=== PATIENT | male | born 1950 | race Caucasian/White ===

== ENCOUNTER 2022-01-26 08:19 | Observation (INO) | payer OTHER ==
[2022-01-26] MEDS ORDERED: DEXTROSE 10%-WATER 500 ML IV ONE (08:23)
--- OUTSIDE RECORDS SUMMARY | 2022-01-26 08:24 | XMS REPORT | Continuity of Care Document ---
:1950 Author Organization [facility] t Address [address] [place] [address] Care Team Providers Name Role Phone ION VOGEL Primary Care Physician Unavailable ION VOGEL Attending Clinician Unavailable Ion Vogel MD Attending Clinician Wilfredo Vallejo Attending Clinician Unavailable Physician, No Primary or Family Admitting Clinician Unavaila ble Payers Payer Name Policy Type Policy Number Effective Date Expiration Date S ource Problems Condition Condition Condition Status Onset Resolution Last Treating Co mments Source Name Details Category Date Date Treatment Clinician Date Erectile Erectile Disease Active Unive rs dysfunctio dysfunctio 308 it y of n, n, 00:00: [place] unspecifie unspecifie 00 Me dical d erectile d erectile Br anch dysfunctio dysfunctio n type n type Type 2 Type 2 Disease Active Univers diabetes diabetes 3-07 ity of mellitus mellitus 00:00: [place] without without 00 Medical complicati complicati Br anch on, on, without without long-term long-term current current use of use of insulin insulin H/O: H/O: Disease Active Univers stroke stroke 2-07 ity of 00:00: [place] [address] [facility] Elevated Elevated Disease Active Unive rs liver liver 02-20 ity of enzymes enzymes 00:00: [address] Hyperlipid Hyperlipid Disease Active U nivers emia emia 9-16 ity of 00:00: [place] 00 [facility] Essential Essential Disease Active Uni vers hypertensi hypertensi 5-19 it y of on on 00:00: [place] [facility] Hearing Hearing Disease Active [facility] impaired, impaired, 5-19 [place] bilateral [place] Allergies, Adverse Reactions, Alerts Allergy Allergy Status Severity Reaction(s) Onset Inactive Treating Comm ents Source Name Type Date Date Clinician metformi DA Active MO RASH 2020-06 [facility] n 0-15 Clear 00:00: [place] 00 [facility] metformi DA Active MO 2020-06 [facility] n 0-15 Clear 00:00: [place] 00 [facility] Iodine Propensi Active Rash 2018-06 Univers ty to 0-03 ity of adverse 00:00: [place] reaction [facility] IODINE DRUG Active Rash 2018-06 Univers INGREDI 0-03 ity of 00:00: [place] 00 Medical [place] Aspirin Propensi Active Unknown - Abdominal U nivers ty to See comments 4-15 pain ity of adverse 00:00: [place] reaction 00 [facility] ASPIRIN DRUG Active High Unknown-Cmnt Uni vers INGREDI 4-15 ity of 00:00: [place] 00 Medical [facility] Metformi Propensi Active Diarrhea 2017-0 Univ ers n ty to 6-13 ity of adverse 00:00: [place] reaction 00 [facility] METFORMI DRUG Active High Diarrhea 20170 Univer s N INGREDI 6-13 ity of 00:00: [place] 00 Medical [facility] Penicill Propensi Active Rash Univer s ins ty to 5-19 ity of adverse 00:00: [place] reaction 00 [facility] PENICILL Drug Active Rash Univers INS Class 5-19 ity of 00:00: [place] 00 [facility] Penicill Propensi Active Rash Univer s ins ty to 5-19 ity of adverse 00:00: [place] reaction [facility] Penicill DA Active U RASH [facility] ins 4-05 Clear 00:00: [place] 00 [facility] Penicill DA Active U [facility] ins 4-05 Clear 00:00: [place] 00 [facility] Social History Social Habit Start Date Stop Date Quantity Comments Source History of tobacco Cigarette Smoker [facility] Exposure to Not sure University of SARS-CoV-2 (event) [facility] Alcohol intake 2021-08-27 2021-08-27 Current drinker Unive rsity of 00:00:00 00:00:00 of alcohol [facility] (finding) [place] Tobacco use and 2015-10-24 2015-10-24 Never used Universit y of exposure 00:00:00 00:00:00 [facility] Cigarettes smoked 2015-10-24 2015-10-24 Univers ity of current (pack per 00:00:00 00:00:00 [facility] ) - Reported Branch Sex [birth year] Universit y of 00:00:00 00:00:00 [facility] Smoking Status Start Date Stop Date Source Current every day smoker 2015-10-24 00:00:00 Uni versity of [facility] Medications Ordered Filled Start Stop Current Ordering Indication Dosage Frequency Signature Comments Components Source Medication Medication Date Date Medication? Clinician (SIG) Name Name glyBURIDE 5 2021- Yes 5mg Take 1 Univ ers mg tablet 6-29 tablet by ity o f 00:00: mouth [place] ([facility]) Medical times Branch daily with meals. glyBURIDE 5 2021-0 Yes 5mg Take 1 Univ ers mg tablet 6-29 tablet by ity o f 00:00: mouth [place] ([facility]) Medical times Branch daily with meals. famotidine 2021-0 Yes [id number] 20mg Take 1 Univers (PEPCID) 20 3-23 tablet by ity of mg tablet 00:00: mouth [place] ([facility]) Medical times Branch daily. famotidine 2022-0 Yes [id number] 20mg Take 1 Univers (PEPCID) 20 3-23 tablet by ity of mg tablet 00:00: mouth [place] ([facility]) Medical times Branch daily. famotidine 2022-0 Yes [id number] 20mg Take 1 Univers (PEPCID) 20 3-23 tablet by ity of mg tablet 00:00: mouth [place] ([facility]) Medical times Branch daily. famotidine 2-0 Yes [id number] 20mg Take 1 Univers (PEPCID) 20 3-23 tablet by ity of mg tablet 00:00: mouth [place] ([facility]) Medical times Branch daily. famotidine 2022-0 Yes [id number] 20mg Take 1 Univers (PEPCID) 20 3-23 tablet by ity of mg tablet 00:00: [place] ([facility]) Medical times Branch daily. famotidine 2021-0 Yes [id number] 20mg Take 1 Univers (PEPCID) 20 3-23 tablet by ity of mg tablet 00:00: mouth (two) Medical times Branch daily. famotidine 2021-0 Yes [id number] 20mg Take 1 Univers (PEPCID) 20 3-23 tablet by ity of mg tablet 00:00: mouth () Medical times Branch daily. glyBURIDE 5 2021-0 Yes [id number] 5mg Take 1 Univers mg tablet 3-15 tablet by ity o f 00:00: mouth [place] ([facility]) Medical times Branch daily with meals. TAKE ONE TABLET BY MOUTH ONCE DAILY WITH BREAKFAST glyBURIDE 5 2021-0 Yes [id number] 5mg Take 1 Univers mg tablet 3-15 tablet by ity o f 00:00: mouth [place] ([facility]) Medical times Branch daily with meals. TAKE ONE TABLET BY MOUTH ONCE DAILY WITH BREAKFAST glyBURIDE 5 2021-0 Yes [id number] 5mg Take 1 Univers mg tablet 3-15 tablet by ity o f 00:00: mouth [place] ([facility]) Medical times Branch daily with meals. TAKE ONE TABLET BY MOUTH ONCE DAILY WITH BREAKFAST glyBURIDE 5 2021-0 Yes [id number] 5mg Take 1 Univers mg tablet 3-15 tablet by ity o f 00:00: mouth [place] ([facility]) Medical times Branch daily with meals. TAKE ONE TABLET BY MOUTH ONCE DAILY WITH BREAKFAST glyBURIDE 5 2021-0 2022- No [id number] 5mg Take 1 Univers mg tablet 3-15 -29 tablet by ity of 00:00: 00:00 mouth [place] : ([facility]) Medical times Branch daily with meals. TAKE ONE TABLET BY MOUTH ONCE DAILY WITH BREAKFAST glyBURIDE 5 2021-0 2022- No [id number] 5mg Take 1 Univers mg tablet 3-15 06-29 tablet by ity of 00:00: 00:00 mouth 2 [place] : ([facility]) Medical times Branch daily with meals. TAKE ONE TABLET BY MOUTH ONCE DAILY WITH BREAKFAST glyBURIDE 5 2021-2021- No [id number] 5mg Take 1 Univers mg tablet 08-19- tablet by ity of 00:00: 00:00 mouth 2 [place] 00 :00 (two) Medical times Branch daily with meals. TAKE ONE TABLET BY MOUTH ONCE DAILY WITH BREAKFAST famotidine 2021- No 20mg Take 1 Univ ers (PEPCID) 20 3-15 -23 tablet by it y of mg tablet 00:00: 00:00 [place] (two) Medical times Branch daily. famotidine 2021-2021- No 20mg Take 1 Univ ers (PEPCID) 20 3-15 -23 tablet by it y of mg tablet 00:00: 00:00 [place] (two) Medical times Branch daily. gabapentin 2021-0 Yes [id number] 300mg Take 1 Univers 300 mg 3-11 capsule by ity of capsule 00:00: mouth 3 (three) Medical times Branch daily. amLODIPine 2021-0 Yes [id number] 10mg Take 1 U nivers 10 mg 3-11 tablet by ity of tablet 00:00: mouth [place] 00 daily. Medical Branch baclofen 10 2021-0 Yes [id number] 10mg Take 1 Univers mg tablet 3-11 tablet by ity o f 00:00: mouth at [place] 00 bedtime. Medical Branch clopidogreL 2021-0 Yes [id number] 75mg Take 1 Univers 75 mg 3-11 tablet by ity of tablet 00:00: mouth 00 daily. Medical Branch atorvastati 2021-0 Yes [id number] 20mg Take 1 Univers n 20 mg 3-11 tablet by ity of tablet 00:00: mouth at [place] 00 bedtime. Medical Branch lisinopriL 2021-0 Yes [id number] 20mg Take 1 U nivers 20 mg 3-11 tablet by ity of tablet 00:00: mouth 2 (two) Medical times Branch daily. montelukast 2021-0 Yes [id number] 10mg Take 1 Univers 10 mg 3-11 tablet by ity of tablet 00:00: mouth [place] 00 daily. Medical Branch gabapentin 2021-0 Yes [id number] 300mg Take 1 Univers 300 mg 3-11 capsule by ity of capsule 00:00: mouth 3 (three) Medical times Branch daily. amLODIPine 2021-0 Yes [id number] 10mg Take 1 U nivers 10 mg 3-11 tablet by ity of tablet 00:00: mouth [place] 00 daily. Medical Branch baclofen 10 2021-0 Yes [id number] 10mg Take 1 Univers mg tablet 3-11 tablet by ity o f 00:00: mouth at 00 bedtime. Medical Branch clopidogreL 2021-0 Yes [id number] 75mg Take 1 Univers 75 mg 3-11 tablet by ity of tablet 00:00: mouth [place] 00 daily. Medical Branch atorvastati 2021-0 Yes [id number] 20mg Take 1 Univers n 20 mg 3-11 tablet by ity of tablet 00:00: mouth at 00 bedtime. Medical Branch lisinopriL 2021-0 Yes [id number] 20mg Take 1 U nivers 20 mg 3-11 tablet by ity of tablet 00:00: mouth 2 (two) Medical times Branch daily. montelukast 2021-0 Yes [id number] 10mg Take 1 Univers 10 mg 3-11 tablet by ity of tablet 00:00: mouth 00 daily. Medical Branch gabapentin 2021-0 Yes [id number] 300mg Take 1 Univers 300 mg 3-11 capsule by ity of capsule 00:00: mouth 3 (three) Medical times Branch daily. amLODIPine 2021-0 Yes [id number] 10mg Take 1 U nivers 10 mg 3-11 tablet by ity of tablet 00:00: mouth 00 daily. Medical Branch baclofen 10 2021-0 Yes [id number] 10mg Take 1 Univers mg tablet 3-11 tablet by ity o f 00:00: mouth at 00 bedtime. Medical Branch clopidogreL 2021-0 Yes [id number] 75mg Take 1 Univers 75 mg 3-11 tablet by ity of tablet 00:00: mouth [place] 00 daily. Medical Branch atorvastati 2021-0 Yes [id number] 20mg Take 1 Univers n 20 mg 3-11 tablet by ity of tablet 00:00: mouth at 00 bedtime. Medical Branch lisinopriL 2021-0 Yes [id number] 20mg Take 1 U nivers 20 mg 3-11 tablet by ity of tablet 00:00: mouth 2 [place] 00 (two) Medical times Branch daily. montelukast 2021-0 Yes [id number] 10mg Take 1 Univers 10 mg 3-11 tablet by ity of tablet 00:00: mouth [place] 00 daily. Medical Branch gabapentin 2021-0 Yes [id number] 300mg Take 1 Univers 300 mg 3-11 capsule by ity of capsule 00:00: mouth 3 00 (three) Medical times Branch daily. amLODIPine 2021-0 Yes [id number] 10mg Take 1 U nivers 10 mg 3-11 tablet by ity of tablet 00:00: mouth [place] 00 daily. Medical Branch baclofen 10 0 Yes [id number] 10mg Take 1 Univers mg tablet 3-11 tablet by ity o f 00:00: mouth at 00 bedtime. Medical Branch clopidogreL 2021-0 Yes [id number] 75mg Take 1 Univers 75 mg 3-11 tablet by ity of tablet 00:00: mouth [place] 00 daily. Medical Branch atorvastati 0 Yes [id number] 20mg Take 1 Univers n 20 mg 3-11 tablet by ity of tablet 00:00: mouth at [place] 00 bedtime. Medical Branch lisinopriL 0 Yes [id number] 20mg Take 1 U nivers 20 mg 3-11 tablet by ity of tablet 00:00: mouth 2 (two) Medical times Branch daily. montelukast 2021-0 Yes [id number] 10mg Take 1 Univers 10 mg 3-11 tablet by ity of tablet 00:00: mouth [place] 00 daily. Medical Branch gabapentin 2021-0 Yes [id number] 300mg Take 1 Univers 300 mg 3-11 capsule by ity of capsule 00:00: mouth 3 (three) Medical times Branch daily. amLODIPine 2021-0 Yes [id number] 10mg Take 1 U nivers 10 mg 3-11 tablet by ity of tablet 00:00: mouth [place] 00 daily. Medical Branch baclofen 10 2021-0 Yes [id number] 10mg Take 1 Univers mg tablet 3-11 tablet by ity o f 00:00: mouth at [place] 00 bedtime. Medical Branch clopidogreL 2021-0 Yes [id number] 75mg Take 1 Univers 75 mg 3-11 tablet by ity of tablet 00:00: mouth [place] 00 daily. Medical Branch atorvastati 2021-0 Yes [id number] 20mg Take 1 Univers n 20 mg 3-11 tablet by ity of tablet 00:00: mouth at [place] 00 bedtime. Medical Branch lisinopriL 2021-0 Yes [id number] 20mg Take 1 U nivers 20 mg 3-11 tablet by ity of tablet 00:00: mouth 2 00 (two) Medical times Branch daily. montelukast 2021-0 Yes [id number] 10mg Take 1 Univers 10 mg 3-11 tablet by ity of tablet 00:00: mouth [place] 00 daily. Medical Branch gabapentin 2021-0 Yes [id number] 300mg Take 1 Univers 300 mg 3-11 capsule by ity of capsule 00:00: mouth 3 00 (three) Medical times Branch daily. amLODIPine 2021-0 Yes [id number] 10mg Take 1 U nivers 10 mg 3-11 tablet by ity of tablet 00:00: mouth [place] 00 daily. Medical Branch baclofen 10 0 Yes [id number] 10mg Take 1 Univers mg tablet 3-11 tablet by ity o f 00:00: mouth at [place] 00 bedtime. Medical Branch clopidogreL 2021-0 Yes [id number] 75mg Take 1 Univers 75 mg 3-11 tablet by ity of tablet 00:00: mouth [place] 00 daily. Medical Branch atorvastati 0 Yes [id number] 20mg Take 1 Univers n 20 mg 3-11 tablet by ity of tablet 00:00: mouth at [place] 00 bedtime. Medical Branch lisinopriL 2021-0 Yes [id number] 20mg Take 1 U nivers 20 mg 3-11 tablet by ity of tablet 00:00: mouth 2 00 (two) Medical times Branch daily. montelukast 2021-0 Yes [id number] 10mg Take 1 Univers 10 mg 3-11 tablet by ity of tablet 00:00: mouth [place] 00 daily. Medical Branch gabapentin 2021-0 Yes [id number] 300mg Take 1 Univers 300 mg 3-11 capsule by ity of capsule 00:00: mouth 3 [place] 00 (three) Medical times Branch daily. amLODIPine 2021-0 Yes [id number] 10mg Take 1 U nivers 10 mg 3-11 tablet by ity of tablet 00:00: mouth [place] 00 daily. Medical Branch baclofen 10 2022-0 Yes [id number] 10mg Take 1 Univers mg tablet 3-11 tablet by ity o f 00:00: mouth at [place] bedtime. Medical Branch clopidogreL 0 Yes [id number] 75mg Take 1 Univers 75 mg 3-11 tablet by ity of tablet 00:00: mouth [place] 00 daily. Medical Branch atorvastati 0 Yes [id number] 20mg Take 1 Univers n 20 mg 3-11 tablet by ity of tablet 00:00: mouth at [place] 00 bedtime. Medical Branch lisinopriL 0 Yes [id number] 20mg Take 1 U nivers 20 mg 3-11 tablet by ity of tablet 00:00: mouth 2 00 (two) Medical times Branch daily. montelukast Yes [id number] 10mg Take 1 Univers 10 mg 3-11 tablet by ity of tablet 00:00: mouth 00 daily. Medical Branch triamcinolo 2020-06 Yes Apply to Un sarah ne 0.5 % 0-26 area(s) 2 ity of cream 00:00: (two) [place] 00 times Medical daily. Branch triamcinolo 2020-06 Yes Apply to Un sarah ne 0.5 % 0-26 area(s) 2 ity of cream 00:00: (two) 00 times Medical daily. Branch triamcinolo 2020-06 Yes Apply to Un sarah ne 0.5 % 0-26 area(s) 2 ity of cream 00:00: (two) times Medical daily. Branch triamcinolo 2020-06 Yes Apply to Un sarah ne 0.5 % 0-26 area(s) 2 ity of cream 00:00: (two) [place] 00 times Medical daily. Branch triamcinolo 2020-06 Yes Apply to Un sarah ne 0.5 % 0-26 area(s) 2 ity of cream 00:00: (two) [place] 00 times Medical daily. Branch triamcinolo 2020-06 Yes Apply to Un sarah ne 0.5 % 0-26 area(s) 2 ity of cream 00:00: (two) [place] 00 times Medical daily. Branch triamcinolo 2020-06 Yes Apply to Un sarah ne 0.5 % 0-26 area(s) 2 ity of cream 00:00: (two) [place] 00 times Medical daily. [place] sildenafil 2019-0 Yes [id number] 20mg Take 1 Univers 20 mg 4-15 tablet by ity of tablet 00:00: mouth [place] 00 daily. [facility] sildenafil 2019-0 Yes [id number] 20mg Take 1 Univers 20 mg 4-15 tablet by ity of tablet 00:00: mouth [place] 00 daily. [facility] sildenafil 2019-0 Yes [id number] 20mg Take 1 Univers 20 mg 4-15 tablet by ity of tablet 00:00: mouth [place] 00 daily. [facility] sildenafil 2019-0 Yes [id number] 20mg Take 1 Univers 20 mg 4-15 tablet by ity of tablet 00:00: mouth [place] 00 daily. [facility] sildenafil 2019-0 Yes [id number] 20mg Take 1 Univers 20 mg 4-15 tablet by ity of tablet 00:00: mouth [place] 00 daily. [facility] sildenafil 2019-0 Yes [id number] 20mg Take 1 Univers 20 mg 4-15 tablet by ity of tablet 00:00: mouth [place] 00 daily. [facility] sildenafil 2019-0 Yes [id number] 20mg Take 1 Univers 20 mg 4-15 tablet by ity of tablet 00:00: mouth [place] 00 daily. [facility] fluticasone Yes [id number] 2{spray Use 2 Univers (FLONASE) 6-04 } Sprays in ity o f 50 00:00: each [place] mcg/actuati 00 nostril Medic al on nasal daily. [place] spray fluticasone 2017- Yes [id number] 2{spray Use 2 Univers (FLONASE) 6-04 } Sprays in ity o f 50 00:00: each [place] mcg/actuati 00 nostril Medic al on nasal daily. Branch spray fluticasone 2017- Yes [id number] 2{spray Use 2 Univers (FLONASE) 6-04 } Sprays in ity o f 50 00:00: each [place] mcg/actuati 00 nostril Medic al on nasal daily. Branch spray fluticasone 2017- Yes [id number] 2{spray Use 2 Univers (FLONASE) 6-04 } Sprays in ity o f 50 00:00: each [place] mcg/actuati 00 nostril Medic al on nasal daily. Branch spray fluticasone Yes [id number] 2{spray Use 2 Univers (FLONASE) 6-04 } Sprays in ity o f 50 00:00: each [place] mcg/actuati 00 nostril Medic al on nasal daily. Branch spray fluticasone Yes [id number] 2{spray Use 2 Univers (FLONASE) 6-04 } Sprays in ity o f 50 00:00: each [place] mcg/actuati 00 nostril Medic al on nasal daily. Branch spray fluticasone Yes [id number] 2{spray Use 2 Univers (FLONASE) 6-04 } Sprays in ity o f 50 00:00: each [place] mcg/actuati 00 nostril Medic al on nasal daily. Branch spray blood sugar Yes E11.9, use Univers diagnostic 03-04 to check ity o f (BLOOD 00:00: blood [place] GLUCOSE 00 glucose Medical TEST) strip once Branch before breakfast Lancets Yes E11.9, use Univ ers Misc 03-04 to check ity of 00:00: blood [place] 00 glucose Medical once Branch before breakfast blood sugar Yes E11.9, use Univers diagnostic 03-04 to check ity o f (BLOOD 00:00: blood [place] GLUCOSE 00 glucose Medical TEST) strip once Branch before breakfast Lancets Yes E11.9, use Univ ers Misc 03-04 to check ity of 00:00: blood [place] 00 glucose Medical once Branch before breakfast blood sugar Yes E11.9, use Univers diagnostic 28 to check ity o f (BLOOD 00:00: blood [place] GLUCOSE 00 glucose Medical TEST) strip once Branch before breakfast Lancets Yes E11.9, use Univ ers Misc 928 to check ity of 00:00: blood [place] 00 glucose Medical once Branch before breakfast blood sugar Yes E11.9, use Univers diagnostic 28 to check ity o f (BLOOD 00:00: blood [place] GLUCOSE 00 glucose Medical TEST) strip once Branch before breakfast Lancets Yes E11.9, use Univ ers Misc 928 to check ity of 00:00: blood [place] 00 glucose Medical once Branch before breakfast blood sugar Yes E11.9, use Univers diagnostic 928 to check ity o f (BLOOD 00:00: blood [place] GLUCOSE 00 glucose Medical TEST) strip once Branch before breakfast Lancets 2017 Yes E11.9, use Univ ers Misc 9-28 to check ity of 00:00: blood [place] 00 glucose Medical once Branch before breakfast blood sugar Yes E11.9, use Univers diagnostic 28 to check ity o f (BLOOD 00:00: blood [place] GLUCOSE 00 glucose Medical TEST) strip once Branch before breakfast Lancets 2017 Yes E11.9, use Univ ers Misc 9-28 to check ity of 00:00: blood [place] 00 glucose Medical once Branch before breakfast blood sugar Yes E11.9, use Univers diagnostic 28 to check ity o f (BLOOD 00:00: blood [place] GLUCOSE 00 glucose Medical TEST) strip once Branch before breakfast Lancets 2017 Yes E11.9, use Univ ers Misc 9-28 to check ity of 00:00: blood [place] 00 glucose Medical once Branch before breakfast Blood-Gluco Yes E11.9, use Univers se Meter 9-22 to check ity of Kit 00:00: blood [place] 00 glucose Medical once Branch daily, provide meter covered by insurance Blood-Gluco 2016-0 Yes E11.9, use Univers se Meter 9-22 to check ity of Kit 00:00: blood [place] 00 glucose Medical once Branch daily, provide meter covered by insurance Blood-Gluco 2016-0 Yes E11.9, use Univers se Meter 9-22 to check ity of Kit 00:00: blood [place] 00 glucose Medical once Branch daily, provide meter covered by insurance Blood-Gluco 2017-0 Yes E11.9, use Univers se Meter 9-22 to check ity of Kit 00:00: blood [place] 00 glucose Medical once Branch daily, provide meter covered by insurance Blood-Gluco 2017-0 Yes E11.9, use Univers se Meter 9-22 to check ity of Kit 00:00: blood [place] 00 glucose Medical once Branch daily, provide meter covered by insurance Blood-Gluco 2017-0 Yes E11.9, use Univers se Meter 9-22 to check ity of Kit 00:00: blood [place] 00 glucose Medical once Branch daily, provide meter covered by insurance Blood-Gluco 2017-0 Yes E11.9, use Univers se Meter 9-22 to check ity of Kit 00:00: blood [place] 00 glucose Medical once Branch daily, provide meter covered by insurance Immunizations Ordered Filled Immunization Date Status Comments [facility] e Immunization Name Name SARS-COV-2 COVID-19 2020-09-03 Completed Unive rsity of MODERNA VACCINE 00:00:00 [facility] SARS-COV-2 COVID-19 2020-09-03 Completed Unive rsity of MODERNA VACCINE 00:00:00 [facility] Branch SARS-COV-2 COVID-19 2020-09-03 Completed Unive rsity of MODERNA VACCINE 00:00:00 [facility] SARS-COV-2 COVID-19 2020-09-03 Completed Unive rsity of MODERNA VACCINE 00:00:00 [facility] Branch SARS-COV-2 COVID-19 2020-09-03 Completed Unive rsity of MODERNA VACCINE 00:00:00 [facility] Branch SARS-COV-2 COVID-19 2020-09-03 Completed Unive rsity of MODERNA VACCINE 00:00:00 [facility] Branch SARS-COV-2 COVID-19 2020-09-03 Completed Unive rsity of MODERNA VACCINE 00:00:00 [facility] Branch SARS-COV-2 COVID-19 2020-08-09 Completed Unive rsity of MODERNA VACCINE 00:00:00 [facility] Branch SARS-COV-2 COVID-19 2020-08-09 Completed Unive rsity of MODERNA VACCINE 00:00:00 [facility] Branch SARS-COV-2 COVID-19 2020-08-09 Completed Unive rsity of MODERNA VACCINE 00:00:00 [facility] Branch SARS-COV-2 COVID-19 2020-08-09 Completed Unive rsity of MODERNA VACCINE 00:00:00 [facility] Branch SARS-COV-2 COVID-19 2020-08-09 Completed Unive rsity of MODERNA VACCINE 00:00:00 [facility] SARS-COV-2 COVID-19 2020-08-09 Completed Unive rsity of MODERNA VACCINE 00:00:00 [facility] SARS-COV-2 COVID-19 2020-08-09 Completed Unive rsity of MODERNA VACCINE 00:00:00 [facility] TDAP 2016-09-10 Completed [facility] 00:[facility] TDAP 2016-09-10 Completed University [facility] 00[facility]00:00 [facility] TDAP 2016-09-10 Completed University [facility] 00:00:00 [facility] TDAP 2016-09-10 Completed University of 00:00:00 [facility] TDAP 2016-09-10 Completed University [facility] 00:00:00 [facility] TDAP 2016-09-10 Completed University [facility] 00:00:00 [facility] TDAP 2016-09-10 Completed [facility] 00:00:00 [facility] Vital Signs Vital Name Observation Time Observation Value Comments Source Systolic blood 2021-08-27 13:47:00 133 mm[Hg] Univer sity of pressure [facility] Diastolic blood 2021-08-27 13:47:00 81 mm[Hg] Unive rsity of [facility] Heart rate 2021-08-27 13:47:00 68 /min [facility] Body temperature 2021-08-27 13:47:00 36.78 [facility] Res[facility] rate 2021-08-27 13:47:00 16 /min [facility] Body height 2021-08-27 13:47:00 185.4 cm [facility] Body weight 2021-08-27 13:47:00 85.095 kg [facility] BMI 2021-08-27 13:47:00 24.75 kg/m2 [facility] Oxygen saturation in 2021-08-27 13:47:00 100 /min [facility] blood by [facility] Pulse oximetry Branch Procedures This patient has no known procedures. Encounters Start End Encounter Admission Attending Care Care Encounter Source Date/Time Date/Time Type Type Clinicians Facility Department ID 2021-03-21 Inpatient [facility] [id number] [facility] 02:58:00 [id number] [facility] 2022-02-27 2022-02-27 Outpatient ION ROCHA [facility] [id number] [facility] 08:45:00 08:45:00 [id number] ity [facility] 2021-12-02 2021-12-02 Ion Carter 1.2.840.114 [id number] Univers 00:00:00 00:00:00 Y PEDIATRIC 350.1.13.10 [place] [id number] [address] 2021-12-01 2021-12-01 Ion Vincent 1.2.840.114 [id number] Univers 00:00:00 00:00:00 Y PEDIATRIC 350.1.13.10 [place] [id number] [address] 2021-12-01 2021-12-01 Ion Vincent 1.2.840.114 [id number] Univers 00:00:00 00:00:00 Y PEDIATRIC 350.1.13.10 [id number] [address] 2021-11-04 2021-11-04 Outpatient ION ROCHA [facility] [id number] Univers 11:00:00 11:00:00 [facility] 2021-11-04 2021-11-04 Outpatient ION ROCHA [facility] [id number] Univers 11:00:00 11:00:00 [id number] [facility] 2021-10-01 2021-10-01 Ion Vincent 1.2.840.114 [id number] Univers 00:00:00 00:00:00 Y PEDIATRIC 350.1.13.10 [id number] [address] 2021-09-18 2021-09-18 Telephone Ion Vogel 1.2.840.114 [id number] Univers 00:00:00 00:00:00 Y PEDIATRIC 350.1.13.10 [id number] [address] [address] [facility] 2021-08-27 2021-08-27 Office Ion Vogel 1.2.840.114 [id number] Univers 08:45:00 09:07:33 Visit Y PEDIATRIC 350.1.13.10 [id number] [place] [address] [address] [facility] 2021-08-27 2021-08-27 Outpatient R ION VOGEL [facility] [id number] [facility] 08:45:00 09:07:33 ity of [facility] 2021-03-21 2021-03-21 Emergency EM RANDA Vallejo AERS [id number] [facility] 02:58:00 07:32:[address] [place] [address] Results Test Description Test Time Test Comments Results Result Comments Source UA DIPSTICK POC 2021-03-21 13:07:00 Test Item Value Reference Range Interpretation Comme nts UA GLUCOSE DIPSTIC POC (test code NEGATIVE NEGATIVE = GLUUP) UA BILIRUBIN DIPSTICK (test code NEGATIVE NEGATIVE = BILU) UA KETONE DIPSTICK POC (test code 1+ NEGATIVE A = KETUP) UA SPECIFIC GRAVITY (test code = 1.010 1.005-1.030 N SGU) UA BLOOD DIPSTIC POC (test code = NEGATIVE NEGATIVE Performed by certified BLUP) chemical plant operator at [facility] UA PH DIPSTIC POC (test code = 5 5.0-7.0 N PHUP) UA PROTEIN DIPSTICK POC (test NEGATIVE NEGATIVE code = DPROUP) UA UROBILINIOGEN QUAL (test code NORMAL 0.2-1.0 = UROQL) UA NITRITE DIPSTICK POC (test NEGATIVE Negative code = NITUP) UA LEUKOCYTE ESTERASE W REFLEX Negative NEGATIVE (test code = LEUUR) - CT ABD PELVIS W/O [id number] 00:00:00 [facility]IMBERLYN MAXWELLJohana Villar : 1950 Sex: M Name:KAY MAXWELL FSED : 1950 Age/S: 71 / M [address] [facility] Unit #: [id number] Loc:David Singh [address] Phys: Wilfredo Vallejo MD Acct: [id number] Dis Date: Status: REG ER PHONE #: Exam Date: 03/21/2021 0623 FAX #: Reason: low back pain EXAMS: CPT CODE: [id number] CT ABD PELVIS W/O [id number] PROCEDURE INFORMATION: Exam: CT Abdomen And Pelvis Without Contrast Exam date and time: 03/21/2021 6:08 AM Age: 71 years old Clinical indication: Abdominal pain; Localized; Lower; Additional info: Low back pain TECHNIQUE: Imaging protocol: Computed tomography of the abdomen and pelvis without contrast. Radiation optimization: All CT scans at this facility use at least one of these dose optimization techniques: automated exposure control; mA and/or kV adjustment per patient size (includes targeted exams where dose is matched to clinical indication); or iterative reconstruction. COMPARISON: No relevant prior studies available. FINDINGS: Lungs: Mild bilateral basilar subsegmental atelectasis and scarring. Heart: Heart size at the upper limits of normal. Liver: Normal size and attenuation without focal lesion. Gallbladder and bile ducts: Contracted gallbladder containing calcified gallstones without inflammation or biliary dilatation. Pancreas: Normal. No ductal dilation. Spleen: Normal size and attenuation without focal lesion. Adrenal glands: Normal. No mass. Kidneys and ureters: Normal size nonenhanced kidneys associated with mild nonspecific perinephric stranding. No urolithiasis, hydronephrosis, or suspicious lesion. Stomach and bowel: Underdistended appropriately thickwalled stomach. Nonobstructive bowel gas pattern. Sptx-pc-sokzwuix diverticulosis greatest in the thick-walled sigmoid colon consistent with chronic changes of diverticulosis. Appendix: No evidence of appendicitis. Intraperitoneal space: Normal without free air or significant fluid collection. Vasculature: Normal c aliber mildly to moderately atherosclerotic nonenhanced abdominal aorta. Lymph nodes: Numerous smallnonspecific central mesenteric and retroperitoneal lymph nodes without lymph node enlargement or mass. Urinary bladder: Mildly dilated urinary bladder suggesting urinary retention or bladder outlet obstruction. Reproductive: Mildly enlarged prostate and seminal vesicles should be correlated clinically. Bones/joints: Mild to moderate lumbar spondylosis and facet joint PAGE 1 Signed Report (CONTINUED) Name: KAY MAXWELL FSED : 1950 Age/S: 71 / M [address] [facility] Unit #: [id number] Loc: David Singh [address] Phys: Wilfredo Vallejo MD Acct: [id number] Dis Date: Status: REG ER PHONE #: Exam Date: 03/21/2021 0654 FAX #: Reason: low back pain EXAMS: CPT CODE: [id number] CT ABD PELVIS W/O CONT 15572 (Continued) arthrosis greatest in the mid and lower lumbar spine. No acute fracture or dislocation. Soft tissues: No significant abnormality. IMPRESSION: 1. Kxjr-wt-msyhlyrq diverticulosis greatest in the thick-walled sigmoid colon consistent with chronic changes of diverticulosis. 2. Mildly enlarged prostate and seminal vesicles should be correlated clinically. 3. Mildly dilated urinary bladder suggesting urinary retention or bladder outlet obstruction. 4. Contracted gallbladder containing calcified gallstones without inflammation or biliary dilatation. 5. Heart size at the upper limits of normal. 6. Numerous small nonspecific central mesenteric and retroperitoneal lymph nodes without lymph node enlargement or mass. [id number] Reported and signed by: Hipolito Patten M.D. CC: Wilfredo Vallejo MD Technologist:Romario Bhakta, RT(R)(CT) CTDI: DLP: Trnscb Date/Time: 03/21/2021 (657) [email or web address] Orig Print D/T: S: 03/21/2021 (0659) PAGE 2 Signed Report
--- NOTE | 2022-01-26 08:37 | RAD REPORT ---
EXAM DESCRIPTION: CT - Ct Stroke Brain Wo Cont - 01/26/2022 8:30 am CLINICAL HISTORY: right sided weakness COMPARISON: No comparisons TECHNIQUE: All CT scans are performed using dose optimization technique as appropriate and may inclu de automated exposure control or mA/KV adjustment according to patient size. FINDINGS: No intracranial hemorrhage, hydrocephalus or extra-axial fluid collection.No areas of brai n edema or evidence of midline shift. Presumably chronically opacified left maxillary sinus which has volume loss and inspissated secretion s. The calvarium is intact. IMPRESSION: No acute intracranial abnormality. Discussed with Dr. Hitchcock by Dr. Roberts at 0833 on 01/26/22
[2022-01-26 08:42] LABS: Absolute Lymphocytes (CBC) 0.5 K/uL (0.7-4.9); Hematocrit 45.3 % (39.6-49.0); Lymphocytes % 10.2 % (15.3-44.8); MCV 93.3 fL (80-100); RBC Red Blood Cell Count 4.85 M/uL (4.33-5.43)
[2022-01-26 08:45] LABS: Protime INR 1.05
[2022-01-26 09:03] LABS: Potassium 3.2 mmol/L (3.5-5.1); Troponin High Sensitivity 14.4 pg/mL (<58.9)
--- NOTE | 2022-01-26 09:05 | RAD REPORT ---
EXAM DESCRIPTION: RAD - Chest Single View - 01/26/2022 8:54 am CLINICAL HISTORY: right sided weakness COMPARISON: No comparisons FINDINGS: Lines: None. Lungs: No evidence of edema or pneumonia. Calcified nodule in the left mid lung. Pleural: No significant pleural effusions or pneumothorax. Cardiac: The heart size is within normal limits. Bones: No acute fractures. Other: IMPRESSION: No acute cardiopulmonary disease.
[2022-01-26 09:21] LABS: SARS-CoV-2 Antigen Rapid Res Positive (Negative)
--- NOTE | 2022-01-26 09:30 | ER ---
Nurse's Notes [facility] [employer] [place] Name: Ford Cardenas Age: 71 yrs Sex: Male : 1950 Arrival Date: 01/26/2022 Time: 08:20 Bed 4 Private MD: Diagnosis: Transient cerebral ischemic attack, unspecified;Hypoglycemia, unspecified;SARS-associated coronavirus as the cause of diseases classified elsewhere Presentation: 01/26 08:20 Chief complaint: Patient states: Woke up on the floor this morning at 0300 with R sided ss weakness. Pt reports he is regaining some movement to his R leg. Upon EMS arrival, initial BGL was 41, after administering 1 tube of oral glucose, repeat bgl went down to 30. Upon arrival to ED, bgl is 31. Pt is awake and alert at this time. Coronavirus screen: Client denies travel out of the [place] in the last 14 days. Ebola Screen: Patient denies exposure to infectious person. Patient denies travel to an Ebola-affected area in the 21 days before illness onset. Initial Sepsis Screen: Does the patient meet any 2 criteria? No. Patient's initial sepsis screen is negative. Does the patient have a suspected source of infection? No. Patient's initial sepsis screen is negative. Risk Assessment: Do you want to hurt yourself or someone else? Patient reports no desire to harm self or others. Onset of symptoms is unknown. 08:20 Method Of Arrival: EMS: [facility] 08:20 Acuity: KAYLA 2 ss Triage Assessment: 08:15 General: Appears in no apparent distress. slender, Behavior is calm, cooperative. jh6 08:15 Pain: Denies pain. Neuro: Level of Consciousness is awake, alert, obeys commands, jh6 Oriented to person, situation, Criminal Investigator Customs are weak on right. Historical: - Allergies: 08:24 PENICILLINS; ss 08:24 Iodine; ss - Home Meds: 09:59 None [Active]; jg9 - PMHx: 09:59 None; jg9 - Immunization history:: Adult Immunizations up to date. - Social history:: Smoking status: Patient denies any tobacco usage or history of. - Family history:: not pertinent. - Hospitalizations: : No recent hospitalization is reported. Screenin:15 Abuse screen: Denies threats or abuse. Denies injuries from another. Nutritional 6 screening: No deficits noted. Tuberculosis screening: No symptoms or risk factors identified. Fall Risk Fall in past 12 months (25 points). Secondary diagnosis (15 points) TIA, IV access (20 points). Assessment: 08:15 Derm: Skin has skin tears on r elbow area. jg9 08:26 Reassessment: Patient is having increased movement on right side from initial j9 assessment. Pain: Denies pain. 09:00 Neuro: Justin Agitation-Sedation Scale (RASS): 0 - Alert and Calm Level of jh Consciousness is awake, alert, obeys commands, confused, Oriented to person, place, situation, Criminal Investigator Customs are weak on right Moves all extremities. Weakness in right leg(s) Speech is normal, Facial symmetry appears normal, Pupils are PERRLA, Intact Babinski is positive. Vital Signs: 08:20 BP 184 / 71; Pulse 75; Resp 16; Temp 98.1(TE); Weight 79.83 kg; Pain 0/10; ss 08:59 BP 152 / 76; Pulse 78; Resp 18; Pulse Ox 98% ; Pain 0/10; jh6 09:30 BP 190 / 93 RA; Pulse 73; Resp 17 S; Pulse Ox 98% on R/A; jg9 10:00 BP 180 / 78; Pulse 83; Resp 16 S; Pulse Ox 98% on R/A; Pain 0/10; jg9 11:00 BP 168 / 78; Pulse 75; Resp 16 S; Pulse Ox 98% on R/A; jg9 12:00 BP 129 / 63; Pulse 62; Resp 17 S; Pulse Ox 98% on R/A; jg9 13:00 BP 129 / 71; Pulse 62; Resp 16 S; Pulse Ox 97% on R/A; jg9 14:00 BP 125 / 74; Pulse 61; Resp 15 S; Pulse Ox 100% on R/A; jg9 15:00 BP 143 / 65; Pulse 88; Resp 18 S; Pulse Ox 99% on R/A; jg9 16:00 BP 141 / 75; Pulse 63; Resp 20 S; Pulse Ox 99% on R/A; jg9 17:00 BP 134 / 67; Pulse 58; Resp 13 S; Pulse Ox 97% on R/A; jg9 Vitals: 08:59 Cardiac Rhythm Assessment Regular. 6 NIH Stroke Scale Scores: 08:34 NIHSS Score: 5 j 08:34 NIHSS Score: 6 [facility] 08:52 NIHSS Score: 6 rn 09:01 NIHSS Score: 4 [facility] ED Course: 08:00 Inserted saline lock: 20 gauge in left antecubital area, using aseptic technique. Blood 6 collected. 08:15 Placed in gown. Bed in low position. Call light in reach. Side rails up X2. [facility] 08:20 Patient arrived in ED. rn 08:20 Deuce Hitchcock MD is Attending Physician. rn 08:24 Triage completed. ss 08:24 Arm band placed on right wrist. ss 08:31 CT Stroke Brain w/o Contrast In Process Unspecified. EDMS 08:56 Stroke CXR 1 View In Process Unspecified. EDMS 09:29 Deuce Hitchcock MD is Hospitalizing Provider. rn 09:29 Hospitalizing Provider role handed off by Deuce Hitchcock MD rn 09:29 Dawson Hitchcock MD is Hospitalizing Provider. rn 09:50 Breanne Balderas, ARABELLA is Primary Nurse. jg9 17:15 No provider procedures requiring assistance completed. jg9 17:15 Patient admitted, IV remains in place. j9 19:23 Primary Nurse role handed off by Breanne Balderas, ARABELLA mw2 23:46 Chrystal Sidhu, ARABELLA is Primary Nurse. vc1 Administered Medications: 08:20 Drug: D10 in Water [4ml/kg] 500 ml Route: IVP; Site: left antecubital; j9 09:05 Follow up: Response: Blood sugar is elevated [facility] 23:30 Drug: Potassium Chloride 40 mEq Route: PO; vc1 Medication: 09:03 VIS not applicable for this client. 6 Outcome: 09:30 Decision to Hospitalize by Provider. rn 17:15 Admitted to ER Hold. Please see [facility] for further documentation. jg9 17:15 Condition: stable 23:46 Patient left the ED. vc1 NIH Stroke Scale - NIH Stroke Score Date: 01/26/2022 Time: 08:34 Total Score = 5 1a. Level of Consciousness (LOC) - 0(Alert) 1b. Level of Consciousness (LOC) (Month \T\ Age) - 0(Both) 1c. LOC Commands (Open \T\ Closes Eyes/Production Machine Tender) - 0(Both) 2. Best Gaze (Lateral Gaze Paresis) - 0(Normal) 3. Visual Field Loss - 0(No visual loss) 4. Facial Palsy - 0(Normal) 5a. Left Arm: Motor (10-second hold) - 0(No drift) 5b. Right Arm: Motor (10-second hold) - 2(Drift, some effort against gravity) 6a. Left Leg: Motor (5-second hold - always test supine) - 0(No drift) 6b. Right Leg: Motor (5-second hold - always test supine) - 3(No effort against gravity) 7. Limb Ataxia (finger/nose \T\ heel/mar - test with eyes open) - 0(Absent) 8. Sensory Loss (pinprick arms/legs/face) - 0(Normal) 9. Best Language: Aphasia (description/naming/reading) - 0(No aphasia) 10. Dysarthria (speech clarity - read or repeat words) - 0(Normal) 11. Extinction and Inattention (visual/tactile/auditory/spatial/personal) - 0(No abnormality) Initials: jg9 NIH Stroke Scale - NIH Stroke Score Date: 01/26/2022 Time: 08:34 Total Score = 6 1a. Level of Consciousness (LOC) - 0(Alert) 1b. Level of Consciousness (LOC) (Month \T\ Age) - 0(Both) 1c. LOC Commands (Open \T\ Closes Eyes/Production Machine Tender) - 0(Both) 2. Best Gaze (Lateral Gaze Paresis) - 0(Normal) 3. Visual Field Loss - 0(No visual loss) 4. Facial Palsy - 0(Normal) 5a. Left Arm: Motor (10-second hold) - 0(No drift) 5b. Right Arm: Motor (10-second hold) - 3(No effort against gravity) 6a. Left Leg: Motor (5-second hold - always test supine) - 0(No drift) 6b. Right Leg: Motor (5-second hold - always test supine) - 3(No effort against gravity) 7. Limb Ataxia (finger/nose \T\ heel/mar - test with eyes open) - 0(Absent) 8. Sensory Loss (pinprick arms/legs/face) - 0(Normal) 9. Best Language: Aphasia (description/naming/reading) - 0(No aphasia) 10. Dysarthria (speech clarity - read or repeat words) - 0(Normal) 11. Extinction and Inattention (visual/tactile/auditory/spatial/personal) - 0(No abnormality) Initials: jg9 NIH Stroke Scale - NIH Stroke Score Date: 01/26/2022 Time: 08:52 Total Score = 6 1a. Level of Consciousness (LOC) - 0(Alert) 1b. Level of Consciousness (LOC) (Month \T\ Age) - 0(Both) 1c. LOC Commands (Open \T\ Closes Eyes/Production Machine Tender) - 0(Both) 2. Best Gaze (Lateral Gaze Paresis) - 0(Normal) 3. Visual Field Loss - 0(No visual loss) 4. Facial Palsy - 0(Normal) 5a. Left Arm: Motor (10-second hold) - 0(No drift) 5b. Right Arm: Motor (10-second hold) - 3(No effort against gravity) 6a. Left Leg: Motor (5-second hold - always test supine) - 0(No drift) 6b. Right Leg: Motor (5-second hold - always test supine) - 3(No effort against gravity) 7. Limb Ataxia (finger/nose \T\ heel/mar - test with eyes open) - 0(Absent) 8. Sensory Loss (pinprick arms/legs/face) - 0(Normal) 9. Best Language: Aphasia (description/naming/reading) - 0(No aphasia) 10. Dysarthria (speech clarity - read or repeat words) - 0(Normal) 11. Extinction and Inattention (visual/tactile/auditory/spatial/personal) - 0(No abnormality) Initials: rn NIH Stroke Scale - NIH Stroke Score Date: 01/26/2022 Time: 09:01 Total Score = 4 1a. Level of Consciousness (LOC) - 0(Alert) 1b. Level of Consciousness (LOC) (Month \T\ Age) - 0(Both) 1c. LOC Commands (Open \T\ Closes Eyes/Production Machine Tender) - 0(Both) 2. Best Gaze (Lateral Gaze Paresis) - 0(Normal) 3. Visual Field Loss - 0(No visual loss) 4. Facial Palsy - 0(Normal) 5a. Left Arm: Motor (10-second hold) - 0(No drift) 5b. Right Arm: Motor (10-second hold) - 2(Drift, some effort against gravity) 6a. Left Leg: Motor (5-second hold - always test supine) - 0(No drift) 6b. Right Leg: Motor (5-second hold - always test supine) - 2(Drift, some effort against gravity) 7. Limb Ataxia (finger/nose \T\ heel/mar - test with eyes open) - 0(Absent) 8. Sensory Loss (pinprick arms/legs/face) - 0(Normal) 9. Best Language: Aphasia (description/naming/reading) - 0(No aphasia) 10. Dysarthria (speech clarity - read or repeat words) - 0(Normal) 11. Extinction and Inattention (visual/tactile/auditory/spatial/personal) - 0(No abnormality) Initials: [facility] Signatures: Dispatcher [employer] EDDeuce Valdez MD MD rn Smirch, Shelby, RN RN Nya Guillen [facility] Breanne Arreola RN RN [facility] Breanne Balderas RN RN jg9 Chrystal Sidhu RN RN vc1 Corrections: (The following items were deleted from the chart) 08:24 08:24 Allergies: No Known Allergies; [facility] 08:34 08:25 NIHSS Score: 5 jg9 jg9 08:34 08:10 NIHSS Score: 6 jg9 jg9
--- NOTE | 2022-01-26 09:30 | EDPHYS ---
Physician Documentation [facility] Name: Ford Cardenas Age: 71 yrs Sex: Male : 1950 Arrival Date: 01/26/2022 Time: 08:20 Bed 4 Private MD: ED Physician Deuce Hitchcock HPI: 01/26 08:23 This 71 yrs old Male presents to ER via Unassigned with complaints of rn weakness. 08:23 The patient presents to the emergency department with weakness of the right upper rn extremity, right lower extremity. Onset: The symptoms/episode began/occurred this morning. Associated signs and symptoms: Pertinent positives: This patient does not have any pertinent positives. Pertinent negatives: altered mental status, fever, headache, neck stiffness, seizure, syncope, blurred vision, double vision, visual field changes, loss of vision. Severity of symptoms: At their worst the symptoms were moderate in the emergency department the symptoms are unchanged. Current symptoms: paralysis or paresis, that is moderate. The patient has experienced a previous episode. The patient has not recently seen a physician. Pt reports right sided weakness, began this AM when woke up at 0300. Woke up on ground, crawled to front door. REports stroke in past, right sided weakness that "came back in 3 days". EMS reports low blood sugar, in 40s, given oral glucose because basic truck, glucose went down. Pt reports symptoms slightly improving.. Historical: - Allergies: 08:24 PENICILLINS; ss 08:24 Iodine; ss - Home Meds: 09:59 None [Active]; jg9 - PMHx: 09:59 None; jg9 - Immunization history:: Adult Immunizations up to date. - Social history:: Smoking status: Patient denies any tobacco usage or history of. - Family history:: not pertinent. - Hospitalizations: : No recent hospitalization is reported. ROS: 08:23 Constitutional: Negative for fever, chills, and weight loss, Eyes: Negative for injury, rn pain, redness, and discharge, Neck: Negative for injury, pain, and swelling, Cardiovascular: Negative for chest pain, palpitations, and edema, Respiratory: Negative for shortness of breath, cough, wheezing, and pleuritic chest pain, Abdomen/GI: Negative for abdominal pain, nausea, vomiting, diarrhea, and constipation, Back: Negative for injury and pain, MS/Extremity: Negative for injury and deformity, Skin: Negative for injury, rash, and discoloration, Neuro: Negative for headache, numbness, tingling, and seizure. Exam: 08:23 Constitutional: This is a well developed, well nourished patient who is awake, alert, rn and in no acute distress. Head/Face: Normocephalic, atraumatic. Eyes: Periorbital areas with no swelling, redness, or edema. Cardiovascular: Regular rate and rhythm. No pulse deficits. Respiratory: No increased work of breathing, no retractions or nasal flaring. Abdomen/GI: Soft, non-tender Skin: Warm, dry MS/ Extremity: Pulses equal, no cyanosis. Neuro: Awake and alert, GCS 15, oriented to person, place, time, and situation. Cranial nerves II-XII grossly intact. Motor strength 5/5 in LUE/LLE. No motion against gravity RUE/RLE. Sensory grossly intact. Cerebellar exam normal. 08:28 ECG was reviewed by the Attending Physician. rn Vital Signs: 08:20 BP 184 / 71; Pulse 75; Resp 16; Temp 98.1(TE); Weight 79.83 kg; Pain 0/10; ss 08:59 BP 152 / 76; Pulse 78; Resp 18; Pulse Ox 98% ; Pain 0/10; jh6 09:30 BP 190 / 93 RA; Pulse 73; Resp 17 S; Pulse Ox 98% on R/A; jg9 10:00 BP 180 / 78; Pulse 83; Resp 16 S; Pulse Ox 98% on R/A; Pain 0/10; jg9 11:00 BP 168 / 78; Pulse 75; Resp 16 S; Pulse Ox 98% on R/A; jg9 12:00 BP 129 / 63; Pulse 62; Resp 17 S; Pulse Ox 98% on R/A; jg9 13:00 BP 129 / 71; Pulse 62; Resp 16 S; Pulse Ox 97% on R/A; jg9 14:00 BP 125 / 74; Pulse 61; Resp 15 S; Pulse Ox 100% on R/A; jg9 15:00 BP 143 / 65; Pulse 88; Resp 18 S; Pulse Ox 99% on R/A; jg9 16:00 BP 141 / 75; Pulse 63; Resp 20 S; Pulse Ox 99% on R/A; jg9 17:00 BP 134 / 67; Pulse 58; Resp 13 S; Pulse Ox 97% on R/A; jg9 NIH Stroke Scale Scores: 08:34 NIHSS Score: 5 jg9 08:34 NIHSS Score: 6 jg9 08:52 NIHSS Score: 6 rn 09:01 NIHSS Score: 4 jh6 MDM: 08:20 Patient medically screened. rn 08:27 ED course: Symptoms already improving after D10 administration, not back to baseline. rn Pt reports allergic to iodine. CTA canceled. . 08:33 ED course: CT head neg per Dr. Roberts. Not TNK candidate 2/2 out of window given woke up rn with symptoms present at 0300. . 09:28 Data reviewed: vital signs, nurses notes, lab test result(s), EKG, radiologic studies, rn CT scan, and as a result, I will admit patient. Counseling: I had a detailed discussion with the patient and/or guardian regarding: the historical points, exam findings, and any diagnostic results supporting the discharge/admit diagnosis, lab results, radiology results, the need for further work-up and treatment in the hospital. Response to treatment: the patient's symptoms have markedly improved after treatment, and as a result, I will admit patient. Admission orders: after a detailed discussion of the patient's condition and case, the admit orders are written by me. ED course: Pt markedly improved strength, unclear if all related to hypoglycemia or TIA. Also COVID +. Will admit to Dr. Hitchcock for further care.. 01/26 08:22 Order name: Basic Metabolic Panel; Complete Time: : rn 01/26 08:22 Order name: CBC with Diff; Complete Time: : rn 01/26 08:22 Order name: Protime (+inr); Complete Time: : rn 01/26 08:22 Order name: Ptt, Activated; Complete Time: : rn 01/26 08:22 Order name: SARS-COV-2 Antigen Rapid; Complete Time: 09: rn 01/26 08:23 Order name: Troponin High Sensitivity; Complete Time: 09: rn 01/26 08:25 Order name: glucometer results - FOR PT WITH NO ID ss 01/26 09:16 Order name: Glucose, Ancillary Testing; Complete Time: 09:26 EDMS 01/26 10:31 Order name: Thyroid Stimulating Hormone; Complete Time: 23:23 EDMS 01/26 10:31 Order name: Basic Metabolic Panel EDMS 01/26 10:31 Order name: Basic Metabolic Panel EDMS 01/26 10:31 Order name: CBC with Automated Diff EDMS 01/26 10:31 Order name: CBC with Automated Diff EDMS 01/26 10:31 Order name: Magnesium EDMS 01/26 08:22 Order name: CT Stroke Brain w/o Contrast; Complete Time: 09: rn 01/26 08:22 Order name: Stroke CXR 1 View; Complete Time: : rn 01/26 10:31 Order name: Magnesium EDMS 01/26 11:50 Order name: Glucose, Ancillary Testing; Complete Time: : EDMS 01/26 12:40 Order name: Glucose, Ancillary Testing; Complete Time: : EDMS 01/26 14:37 Order name: Glucose, Ancillary Testing; Complete Time: : EDMS 01/26 15:23 Order name: Glucose, Ancillary Testing; Complete Time: : EDMS 01/26 15:38 Order name: RPR; Complete Time: : EDMS 01/26 15:55 Order name: Miscellaneous Test Lab; Complete Time: : EDMS 01/26 16:08 Order name: Vitamin D, 25 (OH), TOTAL; Complete Time: 23: EDMS 01/26 16:19 Order name: Glucose, Ancillary Testing; Complete Time: 23:23 EDMS 01/26 16:22 Order name: Folic Acid, (Folate); Complete Time: 23:23 EDMS 01/26 16:22 Order name: Vitamin B12 Level; Complete Time: 23:23 EDMS 01/26 18:15 Order name: Glucose, Ancillary Testing; Complete Time: 23:23 EDMS 01/26 22:03 Order name: Glucose, Ancillary Testing; Complete Time: 23:23 EDMS 01/26 08:22 Order name: EKG; Complete Time: 08:23 rn 01/26 08:22 Order name: Accucheck; Complete Time: 08:23 rn 01/26 08:22 Order name: Cardiac monitoring; Complete Time: 08:24 rn 01/26 08:22 Order name: EKG - Nurse/Tech; Complete Time: 08:24 rn 01/26 08:22 Order name: IV Saline Lock; Complete Time: 08:24 rn 01/26 08:22 Order name: Labs collected and sent; Complete Time: 08:58 rn 01/26 08:22 Order name: NPO; Complete Time: 14:21 rn 01/26 08:22 Order name: O2 Sat Monitoring; Complete Time: 08:24 rn 01/26 08:22 Order name: Stroke Swallow Screen; Complete Time: 14:21 rn 01/26 10:29 Order name: CONS Physician Consult EDPR 01/26 10:31 Order name: Physical Therapy Consult EDPR 01/26 10:31 Order name: Speech Therapy Consult EDPR 01/26 10:31 Order name: NPO EDPR 01/26 21:49 Order name: MRI; Complete Time: 23:23 EDMS EC:28 Rate is 64 beats/min. Rhythm is irregular. QRS [place] is Normal. OK interval is normal. rn QRS interval is normal. QT interval is normal. No Q waves. T waves are Normal. No ST changes noted. Clinical impression: Normal ECG. Interpreted by me. Reviewed by me. Administered Medications: 08:20 Drug: D10 in Water [4ml/kg] 500 ml Route: IVP; Site: left antecubital; jg9 09:05 Follow up: Response: Blood sugar is elevated jh6 23:30 Drug: Potassium Chloride 40 mEq Route: PO; vc1 Disposition Summary: 01/26/22 09:30 Hospitalization Ordered Hospitalization Status: Observation rn Provider: Dawson Hitchcock rn Condition: Stable rn Problem: new rn Symptoms: have improved rn Bed/Room Type: Standard rn Location: Telemetry/MedSurg (observation)(01/26/22 22:39) cg Room Assignment: [facility](01/26/22 22:39) cg Diagnosis - Transient cerebral ischemic attack, unspecified rn - Hypoglycemia, unspecified rn - SARS-associated coronavirus as the cause of diseases classified elsewhere rn Forms: - Medication Reconciliation Form rn - SBAR form rn NIH Stroke Scale - NIH Stroke Score Date: 01/26/2022 Time: 08:34 Total Score = 5 1a. Level of Consciousness (LOC) - 0(Alert) 1b. Level of Consciousness (LOC) (Month \\T\\ Age) - 0(Both) 1c. LOC Commands (Open \\T\\ Closes Eyes/Associate Professor Of Chemistry) - 0(Both) 2. Best Gaze (Lateral Gaze Paresis) - 0(Normal) 3. Visual Field Loss - 0(No visual loss) 4. Facial Palsy - 0(Normal) 5a. Left Arm: Motor (10-second hold) - 0(No drift) 5b. Right Arm: Motor (10-second hold) - 2(Drift, some effort against gravity) 6a. Left Leg: Motor (5-second hold - always test supine) - 0(No drift) 6b. Right Leg: Motor (5-second hold - always test supine) - 3(No effort against gravity) 7. Limb Ataxia (finger/nose \\T\\ heel/mar - test with eyes open) - 0(Absent) 8. Sensory Loss (pinprick arms/legs/face) - 0(Normal) 9. Best Language: Aphasia (description/naming/reading) - 0(No aphasia) 10. Dysarthria (speech clarity - read or repeat words) - 0(Normal) 11. Extinction and Inattention (visual/tactile/auditory/spatial/personal) - 0(No abnormality) Initials: jg9 NIH Stroke Scale - NIH Stroke Score Date: 01/26/2022 Time: 08:34 Total Score = 6 1a. Level of Consciousness (LOC) - 0(Alert) 1b. Level of Consciousness (LOC) (Month \\T\\ Age) - 0(Both) 1c. LOC Commands (Open \\T\\ Closes Eyes/Associate Professor Of Chemistry) - 0(Both) 2. Best Gaze (Lateral Gaze Paresis) - 0(Normal) 3. Visual Field Loss - 0(No visual loss) 4. Facial Palsy - 0(Normal) 5a. Left Arm: Motor (10-second hold) - 0(No drift) 5b. Right Arm: Motor (10-second hold) - 3(No effort against gravity) 6a. Left Leg: Motor (5-second hold - always test supine) - 0(No drift) 6b. Right Leg: Motor (5-second hold - always test supine) - 3(No effort against gravity) 7. Limb Ataxia (finger/nose \\T\\ heel/mar - test with eyes open) - 0(Absent) 8. Sensory Loss (pinprick arms/legs/face) - 0(Normal) 9. Best Language: Aphasia (description/naming/reading) - 0(No aphasia) 10. Dysarthria (speech clarity - read or repeat words) - 0(Normal) 11. Extinction and Inattention (visual/tactile/auditory/spatial/personal) - 0(No abnormality) Initials: jg9 NIH Stroke Scale - NIH Stroke Score Date: 01/26/2022 Time: 08:52 Total Score = 6 1a. Level of Consciousness (LOC) - 0(Alert) 1b. Level of Consciousness (LOC) (Month \\T\\ Age) - 0(Both) 1c. LOC Commands (Open \\T\\ Closes Eyes/Associate Professor Of Chemistry) - 0(Both) 2. Best Gaze (Lateral Gaze Paresis) - 0(Normal) 3. Visual Field Loss - 0(No visual loss) 4. Facial Palsy - 0(Normal) 5a. Left Arm: Motor (10-second hold) - 0(No drift) 5b. Right Arm: Motor (10-second hold) - 3(No effort against gravity) 6a. Left Leg: Motor (5-second hold - always test supine) - 0(No drift) 6b. Right Leg: Motor (5-second hold - always test supine) - 3(No effort against gravity) 7. Limb Ataxia (finger/nose \\T\\ heel/mar - test with eyes open) - 0(Absent) 8. Sensory Loss (pinprick arms/legs/face) - 0(Normal) 9. Best Language: Aphasia (description/naming/reading) - 0(No aphasia) 10. Dysarthria (speech clarity - read or repeat words) - 0(Normal) 11. Extinction and Inattention (visual/tactile/auditory/spatial/personal) - 0(No abnormality) Initials: rn NIH Stroke Scale - NIH Stroke Score Date: 01/26/2022 Time: 09:01 Total Score = 4 1a. Level of Consciousness (LOC) - 0(Alert) 1b. Level of Consciousness (LOC) (Month \\T\\ Age) - 0(Both) 1c. LOC Commands (Open \\T\\ Closes Eyes/Associate Professor Of Chemistry) - 0(Both) 2. Best Gaze (Lateral Gaze Paresis) - 0(Normal) 3. Visual Field Loss - 0(No visual loss) 4. Facial Palsy - 0(Normal) 5a. Left Arm: Motor (10-second hold) - 0(No drift) 5b. Right Arm: Motor (10-second hold) - 2(Drift, some effort against gravity) 6a. Left Leg: Motor (5-second hold - always test supine) - 0(No drift) 6b. Right Leg: Motor (5-second hold - always test supine) - 2(Drift, some effort against gravity) 7. Limb Ataxia (finger/nose \\T\\ heel/mar - test with eyes open) - 0(Absent) 8. Sensory Loss (pinprick arms/legs/face) - 0(Normal) 9. Best Language: Aphasia (description/naming/reading) - 0(No aphasia) 10. Dysarthria (speech clarity - read or repeat words) - 0(Normal) 11. Extinction and Inattention (visual/tactile/auditory/spatial/personal) - 0(No abnormality) Initials: jh6 Signatures: Dispatcher [employer] EDMS Deuce Hitchcock MD MD rn Smirch, Shelby, RN RN ss Garcia, Cindy, RN RN cg Gilmore, Jennifer, RN RN jg9 Chrystal Sidhu RN RN vc1 Nell Rodriguez PA PA sb3 Breanne Arreola RN jh6 Corrections: (The following items were deleted from the chart) 08:24 08:24 Allergies: No Known Allergies; [facility] 08:31 08:23 Head Angio+CT.RAD.BRZ ordered. EDMS EDMS 14:21 08:22 Oxygen Per Protocol ordered. fernanda jg9 17:07 09:30 Telemetry/MedSurg (observation) rn ss 17:07 09:30 rn 22:39 17:07 [facility] ER HOLD [facility] 22:39 17:07 ERHOLD- cg
[2022-01-26] MEDS ORDERED: ONDANSETRON 4 MG/2 ML VIAL IV PRN (10:27)
[2022-01-26] MEDS: NA CHLORIDE 0.9% 1,000 ML IV SCH (11:00)
[2022-01-26] MEDS ORDERED: NA CHLORIDE 0.9% 1,000 ML ONE (15:26)
[2022-01-26 16:22] LABS: Folic Acid, (Folate) 7.1 ng/mL (3.1-17.5)
[2022-01-26] MEDS ORDERED: ACETAMINOPHEN 325 MG TABLET PO PRN (17:58)
--- NOTE | 2022-01-26 18:23 | P.HP ---
Certification for Inpatient Patient admitted to: Observation With expected LOS: <2 Midnights Practitioner: I am a practitioner with admitting privileges, knowledge of patient current condition, hospital course, and medical plan of care. Services: Services provided to patient in accordance with Admission requirements found in Title 42 Section 412.3 of the Code of Federal Regulations Patient History Date of Service: 01/26/22 Reason for admission: CVA History of Present Illness: 71yo M, PMH: GERD, prior CVA with R sided weakness (Resolved), NIDDM2, allergies, HTN, sciatica Presents to ED with right sided paralysis. Patient woke up this morning at 3am on the floor in his room, unable to move his right arm and leg at all. He had to crawl to get some help. Urine was noted on the carpet by people who came to help him, which patient states he was aware, and had to urinate, just couldn't move / get up to go anywhere else. He is unsure how he got on the floor. Over the last few days he has been having some cold symptoms - nasal congestion, itchy throat, runny nose. In the ED, he was noted to have some right sided weakness but was improving. CT head negative. He was found to be hypoglycemic and given dextrose. He later reported near resolution of his symptoms, only having some slight weakness of his right leg. He is unable to recall what he late yesterday for dinner, and states he took his medication last night, but is unable to confirm. Last CVA was ~7 yrs ago, says he was told he had a stroke, and that they "saw it on the MRI". He states he had complete paralysis of his right arm/leg and completely resolved within days. Allergies iodine Allergy (Verified 01/26/22 10:40) Hives/Rash Penicillins Allergy (Verified 01/26/22 10:40) Hives/Rash Home Medications: Amlodipine [Norvasc*] 1 tab PO DAILY 01/26/22 Atorvastatin Calcium 1 tab PO BEDTIME 01/26/22 Baclofen 1 tab PO DAILY 01/26/22 Clopidogrel Bisulfate [Plavix] 1 tab PO DAILY 01/26/22 Diphenhydramine HCl [Benadryl Allergy] 1 tab PO 1X PRN 01/26/22 Famotidine 1 tab PO BID 01/26/22 Gabapentin 1 cap PO TID 01/26/22 Montelukast [Singulair*] 1 tab PO DAILY 01/26/22 glyBURIDE [Glyburide] 1 tab PO BID 01/26/22 lisinopriL [Lisinopril] 1 tab PO BID 01/26/22 - Past Medical/Surgical History Has patient received pneumonia vaccine in the past: Yes -: HTN -: HLD -: CVA ~2014 -: NIDDM2 -: allergies -: Back surgery - Family History Family History: Reviewed- Non-Contributory - Social History Smoking Status: Never smoker Alcohol use: No CD- Drugs: No Place of Residence: Home Review of Systems 10-point ROS is otherwise unremarkable Physical Examination - Vital Signs Temperature: 97.7 F Blood Pressure: 141/70 Pulse: 68 Respirations: 16 Pulse Ox (%): 98 - Physical Exam General: Alert, In no apparent distress, Oriented x3 HEENT: EOMI, Sclerae nonicteric Neck: Supple, No LAD Respiratory: Clear to auscultation bilaterally, Normal air movement Cardiovascular: No edema, Regular rate/rhythm Gastrointestinal: Soft and benign, Non-distended, No tenderness Musculoskeletal: No contractures, No tenderness Integumentary: No rashes, No significant lesion Neurological: Normal speech, Normal strength at 5/5 x4 extr (except right le+/5), Sensation intact, Cranial nerves 3-12 intact, Normal affect - Studies Laboratory Data (last 24 hrs) 01/26/22 08:20: PT 11.6, INR 1.05, APTT 32.9 01/26/22 08:20: WBC 4.90, Hgb 15.0, Hct 45.3, Plt Count 137 L 01/26/22 08:20: Sodium 139, Potassium 3.2 L, BUN 9, Creatinine 0.72, Glucose 36 L* Assessment and Plan - Advance Directives Does patient have a Living Will: No Does patient have a Durable POA for Healthcare: No Physician Review Additional Text: Problem List possible CVA vs TIA hypoglycemia h/o CVA with R sided weakness (Resolved) HTN Sciatica possible CVA vs hypoglycemia exacerbated prior CVA symptoms seems like patient did not eat much yesterday and continued to take his diabetic medications he is unable to definitively tell me if he took his meds or not. A friend at bedside said patient was acting somewhat confused the last 2-3 days possible he may have take too much, if he forgot he had already taken his meds check glc levels q1h, once stabilized >100 consecutively and taking PO, can further space out aspirin, plavix, folic acid, statin neuro consulted CT head negative MRI ordered PT Code: full Dispo: home, ~1-2 days Time Spent Managing Pts Care (In Minutes): 70
[2022-01-26] MEDS ORDERED: ATORVASTATIN 40 MG TAB PO SCH (21:00)
--- NOTE | 2022-01-26 21:47 | RAD REPORT ---
EXAM DESCRIPTION: MRI - Brain Wo Cont - 01/26/2022 9:27 pm CLINICAL HISTORY: Right-sided weakness COMPARISON: Head CT January 26, 2022 TECHNIQUE: Axial, sagittal, and coronal magnetic resonance images of the brain were obtained. FINDINGS: No significant abnormal signal within the brain. Mild cerebral atrophy Diffusion-weighted/ADC mapping does not reveal evidence of acute infarction. The ventricles are normal caliber. An extra-axial fluid collection is not noted. Left maxillary sinusitis IMPRESSION: No acute intracranial abnormality noted
[2022-01-26] MEDS ORDERED: POTASSIUM CL SA 10 MEQ TAB PO ONE (23:37)
[2022-01-27] MEDS: NA CHLORIDE 0.9% 1,000 ML IV SCH ×2 (00:20→12:55)
[2022-01-27 02:36] VITALS: O2SAT 97
[2022-01-27 04:00] LABS: Absolute Lymphocytes (CBC) 1.6 K/uL (0.7-4.9); Hematocrit 43.3 % (39.6-49.0); Lymphocytes % 39.5 % (15.3-44.8); MCV 93.7 fL (80-100); MPV 8.3 fL (7.6-11.3); RBC Red Blood Cell Count 4.62 M/uL (4.33-5.43)
[2022-01-27 04:22] LABS: Magnesium 2.5 mg/dL (1.8-2.4); Potassium 4.3 mmol/L (3.5-5.1)
[2022-01-27] MEDS: ASPIRIN EC 81 MG TAB PO SCH ×2 (08:54→08:58)
[2022-01-27] MEDS ORDERED: CLOPIDOGREL 75 MG TABLET PO SCH (09:00)
[2022-01-27] MEDS ORDERED: FOLIC ACID 1 MG TABLET PO SCH (09:00)
[2022-01-27] MEDS ORDERED: FAMOTIDINE 20 MG TAB PO SCH (09:17)
[2022-01-27 11:22] VITALS: BMI 23.2
--- NOTE | 2022-01-27 13:33 | P.DS ---
Admission Date: 01/26/22 Discharge Date: 01/27/22 Disposition: ROUTINE DISCHARGE Discharge Condition: FAIR Reason for Admission: CVA - Problems (1) Hypoglycemia Status: Acute (2) Stroke-like symptom Status: Acute Brief History of Present Illness: 71yo M, PMH: GERD, prior CVA with R sided weakness (Resolved), NIDDM2, allergies, HTN, sciatica Presents to ED with right sided paralysis. Patient woke up in the morning on the floor in his room, unable to move his right arm and leg at all. He had to crawl to get some help. Urine was noted on the carpet by people who came to help him, which patient states he was aware, and had to urinate, because he just couldn't move to anywhere else. He is unsure how he got on the floor. He reported some cold symptoms - nasal congestion, itchy throat, runny nose. In the ED, he was noted to have right sided weakness. CT head negative. He was found to be hypoglycemic and given dextrose. He later reported near resolution of his symptoms, only having some slight weakness of his right leg. He had Last CVA about 7 yrs ago. He stated he had complete paralysis of his right arm/leg which resolved within days. Hospital Course: Diagnosis hypoglycemia Stroke-like symptoms h/o CVA with R sided weakness (Resolved) HTN Sciatica Patient placed under observation on the medical floor. Hypoglycemia was corrected. Patient right-sided weakness resolved after correction of the hypoglycemia. He was seen by physical therapy, patient noted to be independent, was not needing any assistance with ambulation. No further PT needs recommended. MRI of the brain showed no acute stroke. Patient has clinically improved. His focal weakness is likely related to hypoglycemia which resolved after correction of his blood sugar. Case discussed with neurology Dr. Peña who has no further recommendation about follow-up with him in the office for stroke prevention teaching. No acute CVA. Patient is deemed clinically stable for discharge. Vital Signs/Physical Exam: Temp Pulse Resp BP Pulse Ox 98.1 F 64 19 140/72 98 01/27/22 08:00 01/27/22 08:00 01/27/22 08:00 01/27/22 08:00 01/27/22 08:00 General: Alert, In no apparent distress, Oriented x3 HEENT: Mucous membr. moist/pink Neck: Supple, JVD not distended Respiratory: Clear to auscultation bilaterally, Normal air movement Cardiovascular: No edema, Regular rate/rhythm, Normal S1 S2 Gastrointestinal: Normal bowel sounds, Soft and benign, Non-distended Musculoskeletal: No swelling Integumentary: No rashes Neurological: Normal strength at 5/5 x4 extr Laboratory Data at Discharge: WBC 4.20 K/uL (4.3-10.9) L D 01/27/22 02:33 Hgb 14.3 g/dL (13.6-17.9) 01/27/22 02:33 Hct 43.3 % (39.6-49.0) 01/27/22 02:33 Plt Count 138 K/uL (152-406) L 01/27/22 02:33 PT 11.6 SECONDS (9.5-12.5) 01/26/22 08:20 INR 1.05 01/26/22 08:20 APTT 32.9 SECONDS (24.3-36.9) 01/26/22 08:20 Sodium 137 mmol/L (136-145) 01/27/22 02:33 Potassium 4.3 mmol/L (3.5-5.1) 01/27/22 02:33 BUN 15 mg/dL (7-18) 01/27/22 02:33 Creatinine 0.98 mg/dL (0.55-1.3) 01/27/22 02:33 Glucose 109 mg/dL (74-106) H 01/27/22 02:33 Magnesium 2.5 mg/dL (1.8-2.4) H 01/27/22 02:33 Home Medications: Amlodipine [Norvasc*] 1 tab PO DAILY 01/26/22 Baclofen 1 tab PO DAILY 01/26/22 Clopidogrel Bisulfate [Plavix] 1 tab PO DAILY 01/26/22 Famotidine 1 tab PO BID 01/26/22 Gabapentin 1 cap PO TID 01/26/22 Montelukast [Singulair*] 1 tab PO DAILY 01/26/22 Oxymetazoline HCl [Afrin] 2 spray IN PRN PRN 01/26/22 lisinopriL [Lisinopril] 1 tab PO BID 01/26/22 Atorvastatin Calcium [Lipitor] 40 mg PO BEDTIME #30 tab 01/27/22 Metformin HCl 500 mg PO BID #60 tab 01/27/22 glyBURIDE [Glyburide] 2.5 mg PO BID #60 tab 01/27/22 New Medications: glyBURIDE [Glyburide] 2.5 mg PO BID #60 tab Atorvastatin Calcium [Lipitor] 40 mg PO BEDTIME #30 tab Metformin HCl 500 mg PO BID #60 tab Diet: ADA Activity: Ad darren Followup: Abbe Peña MD [ASSOCIATE-ACTIVE - CAN ADMIT] - 1-2 Weeks (call to schedule appointment)
[2022-01-27 13:35] VITALS: BP 152/74; TEMP 98
--- NOTE | 2022-01-27 13:53 | EKG ---
Test Date: 2022-01-26 Test Time: 08:25:56 Indoor Plant Technician: MEASUREMENT RESULTS: Intervals: Rate: 64 [place]: 176 QRSD: 90 QT: 424 QTc: 437 [place]: P: -12 [place]: 176 QRS: 56 T: 75 INTERPRETIVE STATEMENTS: Normal sinus rhythm Nonspecific T wave abnormality Abnormal ECG No previous ECG available for comparison Electronically Signed On 01-27-22 13:50:35 CDT by Mick Cooper
[2022-01-27] MEDS ORDERED: GABAPENTIN 300 MG CAP PO SCH (14:00)
--- NOTE | 2022-01-27 14:33 | ECHO ---
HEIGHT: 6 ft 1 in WEIGHT: 176 lb 0 oz DATE OF STUDY: 01/27/[address]: Dawson Hitchcock MD 2-DIMENSIONAL: YES M.MODE: YES DOPPLER: YES COLOR FLOW: YES TDS: PORTABLE: YES DEFINITY: BUBBLE STUDY: DIAGNOSIS: STROKE CARDIAC HISTORY: CATHERIZATION: SURGERY: PROSTHETIC VALVE: PACEMAKER: MEASUREMENTS (cm) DIASTOLIC (NORMALS) SYSTOLIC (NORMALS) IVSd 0.9 (0.6-1.2) LA Diam (1.9-4.0) LVEF 65% LVIDd 4.4 (3.5-5.7) LVIDs 2.8 (2.0-3.5) %FS 35% LVPWd 1.2 (0.6-1.2) Ao Diam 2.8 (2.0-3.7) 2 DIMENSIONAL ASSESSMENT: RIGHT ATRIUM: NORMAL LEFT ATRIUM: NORMAL RIGHT VENTRICLE: NORMAL LEFT VENTRICLE: NORMAL TRICUSPID VALVE: NORMAL MITRAL VALVE: NORMAL PULMONIC VALVE: NORMAL AORTIC VALVE: NORMAL PERICARDIAL EFFUSION: NONE AORTIC ROOT: NORMAL LEFT VENTRICULAR WALL MOTION: NORMAL DOPPLER/COLOR FLOW: NORMAL COMMENTS: NORMAL LEFT VENTRICULAR EJECTION FRACTION 55-60%. NORMAL WALL MOTION. TECHNOLOGIST: RYANNE DIAZ
[2022-01-28] MEDS ORDERED: MONTELUKAST 10 MG TAB PO SCH (09:00)
[2022-01-28] MEDS ORDERED: CLOPIDOGREL 75 MG TABLET PO SCH (09:00)
== END 2022-01-27 16:22 | disposition home or self-care (01) ==
LOC: ER 08:19 → ERHOLD 10:26 → 4TH 23:28
PROVIDERS: ADMIT Hospitalist; ATTEND Internal Medicine
DX: E11.649 Type 2 diabetes mellitus with hypoglycemia without coma (principal); R53.1 Weakness; U07.1 COVID-19; I10 Essential (primary) hypertension; M54.30 Sciatica, unspecified side; K21.9 Gastro-esophageal reflux disease without esophagitis; E78.5 Hyperlipidemia, unspecified; Z86.73 Personal history of transient ischemic attack (TIA), and cerebral infarction without residual deficits; Z79.899 Other long term (current) drug therapy; Z88.0 Allergy status to penicillin; Z91.041 Radiographic dye allergy status
CPT/HCPCS: 93005; 93306; 85025 ×2; 80048 ×2; 36415 ×2; 83735; 85610; 82947 ×12; 86592; 85730; 84443; 84484; 82746; 82607; 81241; 81240; 86147 ×5; 82306; 86146; 86148; 83090; 85300; 85302; 85305; 85306; 86021 ×2; 84165; 70450; 71045; 70551; 97112; 97116; 97161; 94760; 99285; 87811; J7030 ×2; G0378 ×3

== ENCOUNTER 2022-11-19 00:49 | Observation (INO) | payer OTHER ==
--- OUTSIDE RECORDS SUMMARY | 2022-11-19 00:55 | XMS REPORT | Continuity of Care Document ---
:1950 Author Organization Formerly [facility] t Address [address] [facility] [address] [place] [address] Care Team Providers Name Role Phone Tricia Nava MD Primary Care Physician Tricia Nava MD Attending Clinician Lab, Ang - Db Attending Clinician Unavailable TRICIA NAVA Attending Clinician Unavailable Ion Vogel MD Attending Clinician Doctor Unassigned, [place] Attending Clinician Unavailable ION VOGEL Attending Clinician Unavailable JEWELL GIFFORD Attending Clinician Unavailable Wilfredo Vallejo Attending Clinician Unavailable Physician, No Primary or Family Admitting Clinician Unavaila ble Payers Payer Name Policy Type Policy Number Effective Date Expiration Date Korin wilson [employer] MEDICARE [id number] 2017 2019 COMPLETE 00:00:00 00:00:00 Problems Condition Condition Condition Status Onset Resolution Last Treating Co mments Source Name Details Category Date Date Treatment Clinician Date Erectile Erectile Disease Active Unive rs dysfunctio dysfunctio 3-08 it y of n, n, 00:00: [place] [...] stroke stroke 2-07 ity of 00:00: [place] [facility] Elevated Elevated Disease Active Unive rs liver liver 9-16 ity of enzymes enzymes 00:00: Medical Branch Hyperlipid Hyperlipid Disease Active U nivers emia emia 9-16 ity of 00:00: [place] [facility] Essential Essential Disease Active Uni vers hypertensi hypertensi 5-19 it y of on on 00:00: Medical Branch Hearing Hearing Disease Active Univers impaired, impaired, 519 [place] bilateral bilateral [place] [facility] [place] Allergies, Adverse Reactions, Alerts Allergy Allergy Status Severity Reaction(s) Onset Inactive Treating Comm ents Source Name Type Date Date Clinician metformi DA Active MO RASH 2020-06 [facility] n 0-15 Clear 00:00: [place] 00 [facility] metformi DA Active MO 2020-06 [facility] n 0-15 Clear 00:00: [place] 00 [facility] Iodine Propensi Active Rash 2018-06 Univers ty to 0-03 ity of adverse 00:00: [place] reaction Medical [facility] IODINE DRUG Active Rash 2018-06 Univers INGREDI 0-03 ity of 00:00: [place] [facility] Aspirin Propensi Active Unknown - Abdominal U nivers ty to See comments 4-15 pain ity of adverse 00:00: [place] reaction Medical [facility] ASPIRIN DRUG Active High Unknown-Cmnt Uni vers INGREDI 4-15 ity of 00:00: [place] [facility] Metformi Propensi Active Diarrhea Univ ers n ty to 6-13 ity of adverse 00:00: [place] reaction Medical Branch METFORMI DRUG Active High Diarrhea Univer s N INGREDI 6-13 ity of 00:00: [place] [facility] Penicill Propensi Active Rash Univer s ins ty to 5-19 ity of adverse 00:00: [place] reaction Medical s Branch Penicill Propensi Active Rash Univer s ins ty to 5-19 ity of adverse 00:00: [place] reaction 00 Medical s Branch PENICILL Drug Active Rash Univers INS Class 5-19 ity of 00:00: [place] 00 Medical Branch Penicill Propensi Active Rash Univer s ins ty to 5-19 ity of adverse 00:00: [place] reaction 00 Medical s Branch Penicill DA Active U RASH [facility] ins 4-05 Clear 00:00: [place] 00 [facility] Penicill DA Active U [facility] ins 4-05 Clear 00:00: [place] 00 [facility] Social History Social Habit Start Date Stop Date Quantity Comments Source History of tobacco Cigarette Smoker University of use [facility] Exposure to 2022-09-21 2022-10-01 Not sure University SARS-CoV-2 (event) 00:00:00 14:59:00 [facility] Alcohol intake 2022-10-01 2022-10-01 Current drinker Unive rsity of 00:00:00 00:00:00 of alcohol [facility] Branch Tobacco use and 2022-03-06 2022-03-06 Smokeless Universit y of exposure 00:00:00 00:00:00 tobacco non-user [facility] [place] Cigarettes smoked 2022-03-06 2022-03-06 Univers ity of current (pack per 00:00:00 00:00:00 ) - Reported Branch Sex [birth year] Universit y of 00:00:00 00:00:00 [facility] Smoking Status Start Date Stop Date Source Smokes tobacco daily 2022-03-06 00:00:00 Univers ity of [facility] Medications Ordered Filled Start Stop Current Ordering Indication Dosage Frequency Signature Comments Components Source Medication Medication Date Date Medication? Clinician (SIG) Name Name gabapentin Yes [id number] 300mg Take 1 Univers 300 mg 5-22 capsule by ity of capsule 00:00: mouth in [place] [address] the Medical morning Branch and 1 capsule at noon and 1 capsule in the evening. FAMOTIDINE Yes [id number] TAKE 1 Univers 20 mg 3-14 TABLET ity of tablet 00:00: TWICE [place] 00 DAILY Medical Branch FAMOTIDINE Yes [id number] TAKE 1 Univers 20 mg 3-14 TABLET ity of tablet 00:00: TWICE [place] [address] DAILY Medical Branch FAMOTIDINE 2023-0 Yes [id number] TAKE 1 Univers 20 mg 3-14 TABLET ity of tablet 00:00: TWICE DAILY Medical Branch FAMOTIDINE 3-0 Yes [id number] TAKE 1 Univers 20 mg 3-14 TABLET ity of tablet 00:00: TWICE [place] DAILY Medical Branch FAMOTIDINE 3-0 Yes [id number] TAKE 1 Univers 20 mg 3-14 TABLET ity of tablet 00:00: TWICE [place] DAILY Medical Branch GLYBURIDE 5 2022-0 Yes TAKE 1 Univ ers mg tablet 2-28 TABLET ity of 00:00: TWICE [place] DAILY WITH Medical MEALS Branch GLYBURIDE 5 2022-0 Yes TAKE 1 Univ ers mg tablet 2-28 TABLET ity of 00:00: TWICE [place] DAILY WITH Medical MEALS Branch GLYBURIDE 5 2022-0 Yes TAKE 1 Univ ers mg tablet 2-28 TABLET ity of 00:00: TWICE [place] DAILY WITH Medical MEALS Branch GLYBURIDE 5 2022-0 Yes TAKE 1 Univ ers mg tablet 2-28 TABLET ity of 00:00: TWICE [place] DAILY WITH Medical MEALS Branch GLYBURIDE 5 2022-0 Yes TAKE 1 Univ ers mg tablet 2-28 TABLET ity of 00:00: TWICE [place] DAILY WITH Medical MEALS Branch GLYBURIDE 5 2022-0 Yes TAKE 1 Univ ers mg tablet 2-28 TABLET ity of 00:00: TWICE [place] DAILY WITH Medical MEALS Branch LISINOPRIL 3-0 Yes [id number] TAKE 1 U nivers 20 mg 1-26 TABLET ity of tablet 00:00: TWICE [place] DAILY Medical Branch LISINOPRIL 2023-0 Yes [id number] TAKE 1 U nivers 20 mg 1-26 TABLET ity of tablet 00:00: TWICE [place] DAILY Medical Branch LISINOPRIL 2023-0 Yes [id number] TAKE 1 U nivers 20 mg 1-26 TABLET ity of tablet 00:00: TWICE [place] DAILY Medical Branch LISINOPRIL 2023-0 Yes [id number] TAKE 1 U nivers 20 mg 1-26 TABLET ity of tablet 00:00: TWICE [place] DAILY Medical Branch LISINOPRIL 2023-0 Yes [id number] TAKE 1 U nivers 20 mg 1-26 TABLET ity of tablet 00:00: TWICE [place] DAILY Medical Branch LISINOPRIL 2023-0 Yes [id number] TAKE 1 U nivers 20 mg 1-26 TABLET ity of tablet 00:00: TWICE [place] DAILY Medical Branch LISINOPRIL 2023-0 Yes [id number] TAKE 1 U nivers 20 mg 1-26 TABLET ity of tablet 00:00: TWICE [place] DAILY Medical Branch LISINOPRIL 2023-0 Yes [id number] TAKE 1 U nivers 20 mg 1-26 TABLET ity of tablet 00:00: TWICE [place] DAILY Medical Branch LISINOPRIL 3-0 Yes [id number] TAKE 1 U nivers 20 mg 1-26 TABLET ity of tablet 00:00: TWICE [place] DAILY Medical Branch CLOPIDOGREL 2- Yes [id number] TAKE 1 Univers 75 mg 2-29 TABLET ity of tablet 00:00: EVERY DAY [place] [facility] BACLOFEN 10 2021- Yes [id number] TAKE 1 Univers mg tablet 2-29 TABLET AT ity o f 00:00: BEDTIME [place] [facility] CLOPIDOGREL 2- Yes [id number] TAKE 1 Univers 75 mg 2-29 TABLET ity of tablet 00:00: EVERY DAY [place] [address] Medical Branch BACLOFEN 10 2021- Yes [id number] TAKE 1 Univers mg tablet 2-29 TABLET AT ity o f 00:00: BEDTIME [place] [facility] CLOPIDOGREL 2- Yes [id number] TAKE 1 Univers 75 mg 2-29 TABLET ity of tablet 00:00: EVERY DAY [place] [address] Medical Branch BACLOFEN 10 2021- Yes [id number] TAKE 1 Univers mg tablet 2-29 TABLET AT ity o f 00:00: BEDTIME [place] [facility] CLOPIDOGREL 2-1 Yes [id number] TAKE 1 Univers 75 mg 2-29 TABLET ity of tablet 00:00: EVERY DAY [place] [address] Medical Branch BACLOFEN 10 2021- Yes [id number] TAKE 1 Univers mg tablet 2-29 TABLET AT ity o f 00:00: BEDTIME [place] [facility] CLOPIDOGREL 2- Yes [id number] TAKE 1 Univers 75 mg 2-29 TABLET ity of tablet 00:00: EVERY DAY [place] [address] Medical Branch BACLOFEN 10 2021- Yes [id number] TAKE 1 Univers mg tablet 2-29 TABLET AT ity o f 00:00: BEDTIME [place] [address] Medical Branch CLOPIDOGREL 2021-06 Yes [id number] TAKE 1 Univers 75 mg 2-29 TABLET ity of tablet 00:00: EVERY DAY [place] [facility] Branch BACLOFEN 10 2021-06 Yes [id number] TAKE 1 Univers mg tablet 2-29 TABLET AT ity o f 00:00: BEDTIME [place] [facility] CLOPIDOGREL 2021- Yes [id number] TAKE 1 Univers 75 mg 2-29 TABLET ity of tablet 00:00: EVERY DAY [place] [facility] Branch BACLOFEN 10 2021-06 Yes [id number] TAKE 1 Univers mg tablet 2-29 TABLET AT ity o f 00:00: BEDTIME [place] [facility] CLOPIDOGREL 2021- Yes [id number] TAKE 1 Univers 75 mg 2-29 TABLET ity of tablet 00:00: EVERY DAY [place] [facility] BACLOFEN 10 2021-06 Yes [id number] TAKE 1 Univers mg tablet 2-29 TABLET AT ity o f 00:00: BEDTIME [place] [address] Medical Branch CLOPIDOGREL 2021- Yes [id number] TAKE 1 Univers 75 mg 2-29 TABLET ity of tablet 00:00: EVERY DAY [place] [facility] BACLOFEN 10 2021-06 Yes [id number] TAKE 1 Univers mg tablet 2-29 TABLET AT ity o f 00:00: BEDTIME [place] [address] Medical Branch CLOPIDOGREL 2021- Yes [id number] TAKE 1 Univers 75 mg 2-29 TABLET ity of tablet 00:00: EVERY DAY [address] BACLOFEN 10 2021-06 Yes [id number] TAKE 1 Univers mg tablet 2-29 TABLET AT ity o f 00:00: BEDTIME [address] AMLODIPINE 2021- Yes [id number] TAKE 1 U nivers 10 mg 2-28 TABLET ity of tablet 00:00: EVERY DAY [address] ATORVASTATI 2021-06 Yes [id number] TAKE 1 Univers N 20 mg 2-28 TABLET AT ity of tablet 00:00: BEDTIME [address] MONTELUKAST 2021- Yes [id number] TAKE 1 Univers 10 mg 2-28 TABLET ity of tablet 00:00: EVERY DAY [address] AMLODIPINE 2021-06 Yes [id number] TAKE 1 U nivers 10 mg 2-28 TABLET ity of tablet 00:00: EVERY DAY [address] ATORVASTATI 2021-06 Yes [id number] TAKE 1 Univers N 20 mg 2-28 TABLET AT ity of tablet 00:00: BEDTIME Medical [place] MONTELUKAST 2021-06 Yes [id number] TAKE 1 Univers 10 mg 2-28 TABLET ity of tablet 00:00: EVERY DAY [place] [facility] [place] AMLODIPINE 2021-06 Yes [id number] TAKE 1 U nivers 10 mg 2-28 TABLET ity of tablet 00:00: EVERY DAY [place] [facility] ATORVASTATI 2021-06 Yes [id number] TAKE 1 Univers N 20 mg 2-28 TABLET AT ity of tablet 00:00: BEDTIME [place] [facility] MONTELUKAST 2021-06 Yes [id number] TAKE 1 Univers 10 mg 2-28 TABLET ity of tablet 00:00: EVERY DAY [place] [facility] [place] AMLODIPINE 2021-06 Yes [id number] TAKE 1 U nivers 10 mg 2-28 TABLET ity of tablet 00:00: EVERY DAY [address] ATORVASTATI 2021-06 Yes [id number] TAKE 1 Univers N 20 mg 2-28 TABLET AT ity of tablet 00:00: BEDTIME [place] [facility] MONTELUKAST 2021-06 Yes [id number] TAKE 1 Univers 10 mg 2-28 TABLET ity of tablet 00:00: EVERY DAY [place] [facility] AMLODIPINE 2021-06 Yes [id number] TAKE 1 U nivers 10 mg 2-28 TABLET ity of tablet 00:00: EVERY DAY [address] ATORVASTATI 2021-06 Yes [id number] TAKE 1 Univers N 20 mg 2-28 TABLET AT ity of tablet 00:00: BEDTIME [place] [facility] MONTELUKAST 2021-06 Yes [id number] TAKE 1 Univers 10 mg 2-28 TABLET ity of tablet 00:00: EVERY DAY [address] AMLODIPINE 2021-06 Yes [id number] TAKE 1 U nivers 10 mg 2-28 TABLET ity of tablet 00:00: EVERY DAY [address] ATORVASTATI 2021-06 Yes [id number] TAKE 1 Univers N 20 mg 2-28 TABLET AT ity of tablet 00:00: BEDTIME [address] MONTELUKAST 2021-06 Yes [id number] TAKE 1 Univers 10 mg 2-28 TABLET ity of tablet 00:00: EVERY DAY [address] AMLODIPINE 2021-06 Yes [id number] TAKE 1 U nivers 10 mg 2-28 TABLET ity of tablet 00:00: EVERY DAY [place] [facility] ATORVASTATI 2021-06 Yes [id number] TAKE 1 Univers N 20 mg 2-28 TABLET AT ity of tablet 00:00: BEDTIME [address] Branch MONTELUKAST 2021-06 Yes [id number] TAKE 1 Univers 10 mg 2-28 TABLET ity of tablet 00:00: EVERY DAY [address] Branch AMLODIPINE 2021-06 Yes [id number] TAKE 1 U nivers 10 mg 2-28 TABLET ity of tablet 00:00: EVERY DAY [address] Branch ATORVASTATI 2021-06 Yes [id number] TAKE 1 Univers N 20 mg 2-28 TABLET AT ity of tablet 00:00: BEDTIME [address] Branch MONTELUKAST 2021-06 Yes [id number] TAKE 1 Univers 10 mg 2-28 TABLET ity of tablet 00:00: EVERY DAY [address] Branch AMLODIPINE 2021-06 Yes [id number] TAKE 1 U nivers 10 mg 2-28 TABLET ity of tablet 00:00: EVERY DAY [address] Branch ATORVASTATI 2021-06 Yes [id number] TAKE 1 Univers N 20 mg 2-28 TABLET AT ity of tablet 00:00: BEDTIME [address] Branch MONTELUKAST 2021-06 Yes [id number] TAKE 1 Univers 10 mg 2-28 TABLET ity of tablet 00:00: EVERY DAY [address] Branch AMLODIPINE 2021-06 Yes [id number] TAKE 1 U nivers 10 mg 2-28 TABLET ity of tablet 00:00: EVERY DAY [address] Branch ATORVASTATI 2021-06 Yes [id number] TAKE 1 Univers N 20 mg 2-28 TABLET AT ity of tablet 00:00: BEDTIME [address] Branch MONTELUKAST 2021-06 Yes [id number] TAKE 1 Univers 10 mg 2-28 TABLET ity of tablet 00:00: EVERY DAY [address] Branch glyBURIDE 5 2021-06 Yes 2.5mg Take 0.5 U nivers mg tablet 1-07 tablets by ity of 00:00: mouth in [place] [address] the Medical morning Branch and 0.5 tablets in the evening. Take with meals. glyBURIDE 5 2021-06 Yes 2.5mg Take 0.5 U nivers mg tablet 1-07 tablets by ity of 00:00: mouth in [place] 00 the Medical morning Branch and 0.5 tablets in the evening. Take with meals. glyBURIDE 5 2021-06 Yes 2.5mg Take 0.5 U nivers mg tablet 1-07 tablets by ity of 00:00: mouth in [place] 00 the Medical morning Branch and 0.5 tablets in the evening. Take with meals. glyBURIDE 5 2021-06 Yes 2.5mg Take 0.5 U nivers mg tablet 1-07 tablets by ity of 00:00: mouth in [place] [address] the Medical morning Branch and 0.5 tablets in the evening. Take with meals. glyBURIDE 5 2021-06 Yes 2.5mg Take 0.5 U nivers mg tablet 1-07 tablets by ity of 00:00: mouth in [place] [address] the Medical morning [place] and 0.5 tablets in the evening. Take with meals. glyBURIDE 5 2021-06 Yes 2.5mg Take 0.5 U nivers mg tablet 1-07 tablets by ity of 00:00: mouth in [place] [address] the [facility] morning [place] and 0.5 tablets in the evening. Take with meals. glyBURIDE 5 2021-06- No 2.5mg Take 0.5 Univers mg tablet 1-07 02-28 tablets by ity of 00:00: 00:00 mouth in [place] 00 :00 the [facility] and 0.5 tablets in the evening. Take with meals. mupirocin 2 2021-06- No [id number] Apply to Univers % ointment 06-13 area(s) 3 ity of 00:00: 05:59 (three) [place] 00 :00 times Medical daily for Branch 10 days. mupirocin 2 2021-06- No [id number] Apply to Univers % ointment 06-13 area(s) 3 ity of 00:00: 05:59 (three) [place] 00 :00 times Medical daily for Branch 10 days. gabapentin 2021-06 Yes [id number] 300mg Take 1 Univers 300 mg 0-03 capsule by ity of capsule 00:00: mouth in [place] [address] the [facility] morning [place] and 1 capsule at noon and 1 capsule in the evening. gabapentin 2022-1 Yes [id number] 300mg Take 1 Univers 300 mg 0-03 capsule by ity of capsule 00:00: mouth in [address] morning [place] and 1 capsule at noon and 1 capsule in the evening. gabapentin 202-1 Yes [id number] 300mg Take 1 Univers 300 mg 0-03 capsule by ity of capsule 00:00: mouth in [address] morning [place] and 1 capsule at noon and 1 capsule in the evening. gabapentin 2021-1 Yes [id number] 300mg Take 1 Univers 300 mg 0-03 capsule by ity of capsule 00:00: mouth in [address] morning [place] and 1 capsule at noon and 1 capsule in the evening. gabapentin 2021-1 Yes [id number] 300mg Take 1 Univers 300 mg 0-03 capsule by ity of capsule 00:00: mouth in [address] and 1 capsule at noon and 1 capsule in the evening. gabapentin 2021- Yes [id number] 300mg Take 1 Univers 300 mg 0-03 capsule by ity of capsule 00:00: mouth in [address] and 1 capsule at noon and 1 capsule in the evening. gabapentin 2021-1 Yes [id number] 300mg Take 1 Univers 300 mg 0-03 capsule by ity of capsule 00:00: mouth in [address] and 1 capsule at noon and 1 capsule in the evening. gabapentin 2021-1 Yes [id number] 300mg Take 1 Univers 300 mg 0-03 capsule by ity of capsule 00:00: mouth in [address] and 1 capsule at noon and 1 capsule in the evening. gabapentin 2021-1 Yes [id number] 300mg Take 1 Univers 300 mg 0-03 capsule by ity of capsule 00:00: mouth in [address] and 1 capsule at noon and 1 capsule in the evening. gabapentin 202-1 Yes [id number] 300mg Take 1 Univers 300 mg 0-03 capsule by ity of capsule 00:00: mouth in [address] and 1 capsule at noon and 1 capsule in the evening. gabapentin 202-1 Yes [id number] 300mg Take 1 Univers 300 mg 0-03 capsule by ity of capsule 00:00: mouth in [address] and 1 capsule at noon and 1 capsule in the evening. gabapentin 2021-06 Yes [id number] 300mg Take 1 Univers 300 mg 0-03 capsule by ity of capsule 00:00: mouth in [place] 00 the Medical morning Branch and 1 capsule at noon and 1 capsule in the evening. gabapentin 2021-06 Yes [id number] 300mg Take 1 Univers 300 mg 0-03 capsule by ity of capsule 00:00: mouth in [place] 00 the Medical morning Branch and 1 capsule at noon and 1 capsule in the evening. gabapentin 2021-06- No [id number] 300mg Take 1 Univers 300 mg 0-03 05-22 capsule by ity of capsule 00:00: 00:00 mouth in [place] 00 :00 the Medical morning Branch and 1 capsule at noon and 1 capsule in the evening. glyBURIDE 5 2021-0 Yes 5mg Take 1 Univ ers mg tablet 6-29 tablet by ity o f 00:00: mouth (two) Medical times Branch daily with meals. glyBURIDE 5 2021-0 Yes 5mg Take 1 Univ ers mg tablet 6-29 tablet by ity o f 00:00: mouth (two) Medical times Branch daily with meals. glyBURIDE 5 2021-0 Yes 5mg Take 1 Univ ers mg tablet 6-29 tablet by ity o f 00:00: mouth (two) Medical times Branch daily with meals. glyBURIDE 5 2021-0 Yes 5mg Take 1 Univ ers mg tablet 6-29 tablet by ity o f 00:00: mouth (two) Medical times Branch daily with meals. glyBURIDE 5 2021-0 Yes 5mg Take 1 Univ ers mg tablet 6-29 tablet by ity o f 00:00: mouth (two) Medical times Branch daily with meals. glyBURIDE 5 2021-0 Yes 5mg Take 1 Univ ers mg tablet 6-29 tablet by ity o f 00:00: mouth (two) Medical times Branch daily with meals. glyBURIDE 5 2021-0 2021- No 5mg Take 1 Uni vers mg tablet 6-29 11-07 tablet by ity of 00:00: 00:00 mouth 2 00 :00 (two) Medical times Branch daily with meals. glyBURIDE 5 2021-0 2021- No 5mg Take 1 Uni vers mg tablet 12-03 tablet by ity of 00:00: 00:00 mouth 2 [place] 00 :00 (two) Medical times Branch daily with meals. glyBURIDE 5 2021-2021- No 5mg Take 1 Uni vers mg tablet 12-03-30 tablet by ity of 00:00: 00:00 mouth 2 [place] 00 :00 (two) Medical times Branch daily with meals. glyBURIDE 5 2021-0 2021- No 5mg Take 1 Uni vers mg tablet 12-0330 tablet by ity of 00:00: 00:00 mouth 2 [place] 00 :00 (two) Medical times Branch daily with meals. famotidine 2021-0 Yes [id number] 20mg Take 1 Univers (PEPCID) 20 3-23 tablet by ity of mg tablet 00:00: mouth [place] (two) Medical times Branch daily. famotidine 2021-0 Yes [id number] 20mg Take 1 Univers (PEPCID) 20 3-23 tablet by ity of mg tablet 00:00: mouth [place] (two) Medical times Branch daily. famotidine 2021-0 Yes [id number] 20mg Take 1 Univers (PEPCID) 20 3-23 tablet by ity of mg tablet 00:00: mouth [place] (two) Medical times Branch daily. famotidine 2-0 Yes [id number] 20mg Take 1 Univers (PEPCID) 20 3-23 tablet by ity of mg tablet 00:00: mouth [place] (two) Medical times Branch daily. famotidine 2-0 Yes [id number] 20mg Take 1 Univers (PEPCID) 20 3-23 tablet by ity of mg tablet 00:00: mouth [place] (two) Medical times Branch daily. famotidine 2022-0 Yes [id number] 20mg Take 1 Univers (PEPCID) 20 3-23 tablet by ity of mg tablet 00:00: mouth [place] (two) Medical times Branch daily. famotidine 2022-0 Yes [id number] 20mg Take 1 Univers (PEPCID) 20 3-23 tablet by ity of mg tablet 00:00: mouth [place] (two) Medical times Branch daily. famotidine 2022-0 Yes [id number] 20mg Take 1 Univers (PEPCID) 20 3-23 tablet by ity of mg tablet 00:00: mouth (two) Medical times Branch daily. famotidine 2022-0 Yes [id number] 20mg Take 1 Univers (PEPCID) 20 3-23 tablet by ity of mg tablet 00:00: mouth (two) Medical times Branch daily. famotidine 2022-0 Yes [id number] 20mg Take 1 Univers (PEPCID) 20 3-23 tablet by ity of mg tablet 00:00: mouth (two) Medical times Branch daily. famotidine 2022-0 Yes [id number] 20mg Take 1 Univers (PEPCID) 20 3-23 tablet by ity of mg tablet 00:00: mouth (two) Medical times Branch daily. famotidine 2-0 Yes [id number] 20mg Take 1 Univers (PEPCID) 20 3-23 tablet by ity of mg tablet 00:00: mouth (two) Medical times Branch daily. famotidine 2022-0 Yes [id number] 20mg Take 1 Univers (PEPCID) 20 3-23 tablet by ity of mg tablet 00:00: mouth (two) Medical times Branch daily. famotidine 2022-0 Yes [id number] 20mg Take 1 Univers (PEPCID) 20 3-23 tablet by ity of mg tablet 00:00: mouth (two) Medical times Branch daily. famotidine 2022-0 Yes [id number] 20mg Take 1 Univers (PEPCID) 20 3-23 tablet by ity of mg tablet 00:00: mouth (two) Medical times Branch daily. famotidine 2022-0 Yes [id number] 20mg Take 1 Univers (PEPCID) 20 3-23 tablet by ity of mg tablet 00:00: mouth (two) Medical times Branch daily. famotidine 2022-0 Yes [id number] 20mg Take 1 Univers (PEPCID) 20 3-23 tablet by ity of mg tablet 00:00: mouth (two) Medical times Branch daily. famotidine 2022-0 Yes [id number] 20mg Take 1 Univers (PEPCID) 20 3-23 tablet by ity of mg tablet 00:00: mouth (two) Medical times Branch daily. famotidine 2021-0 2022- No [id number] 20mg Take 1 Univers (PEPCID) 20 3-23 03-14 tablet by it y of mg tablet 00:00[place] Medical times Branch daily. glyBURIDE 5 2021-0 Yes [id number] 5mg Take 1 Univers mg tablet 3-15 tablet by ity o f 00:00: mouth (two) Medical times Branch daily with meals. TAKE ONE TABLET BY MOUTH ONCE DAILY WITH BREAKFAST glyBURIDE 5 2021-0 Yes [id number] 5mg Take 1 Univers mg tablet 3-15 tablet by ity o f 00:00: mouth ([facility]) Medical times Branch daily with meals. TAKE ONE TABLET BY MOUTH ONCE DAILY WITH BREAKFAST glyBURIDE 5 2021- Yes [id number] 5mg Take 1 Univers mg tablet 3-15 tablet by ity o f 00:00: mouth ([facility]) Medical times Branch daily with meals. TAKE ONE TABLET BY MOUTH ONCE DAILY WITH BREAKFAST glyBURIDE 5 2021-0 Yes [id number] 5mg Take 1 Univers mg tablet 3-15 tablet by ity o f 00:00: mouth ([facility]) Medical times Branch daily with meals. TAKE ONE TABLET BY MOUTH ONCE DAILY WITH BREAKFAST glyBURIDE 5 2021-0 2021- No [id number] 5mg Take 1 Univers mg tablet 3-15 -29 tablet by ity of 00:00: 00:00 mouth [place] 00 (two) Medical times Branch daily with meals. TAKE ONE TABLET BY MOUTH ONCE DAILY WITH BREAKFAST glyBURIDE 5 2021-0 2021- No [id number] 5mg Take 1 Univers mg tablet 3-15 06-29 tablet by ity of 00:00: 00:00 mouth 2 ([facility]) Medical times Branch daily with meals. TAKE ONE TABLET BY MOUTH ONCE DAILY WITH BREAKFAST glyBURIDE 5 2021-0 2021- No [id number] 5mg Take 1 Univers mg tablet 3-15 -29 tablet by ity of 00:00: 00:00 mouth 2 [place] 00 :00 (two) Medical times Branch daily with meals. TAKE ONE TABLET BY MOUTH ONCE DAILY WITH BREAKFAST famotidine 2021-0 2021- No 20mg Take 1 Univ ers (PEPCID) 20 3-15 -23 tablet by it y of mg tablet 00:00: 00:[place] (two[place] Medical times Branch daily. famotidine 2021-0 2021- No 20mg Take 1 Univ ers (PEPCID) 20 3-15 -23 tablet by it y of mg tablet 00:00: 00:[place] (two) Medical times Branch daily. gabapentin 2021-0 Yes [id number] 300mg Take 1 Univers 300 mg 3-11 capsule by ity of capsule 00:00: mouth 3 (three) Medical times Branch daily. amLODIPine 2021-0 Yes [id number] 10mg Take 1 U nivers 10 mg 3-11 tablet by ity of tablet 00:00: mouth [place] 00 daily. Medical Branch baclofen 10 2021-0 Yes [id number] 10mg Take 1 Univers mg tablet 3-11 tablet by ity o f 00:00: mouth at [place] 00 bedtime. Medical Branch clopidogreL 2021-0 Yes [id number] 75mg Take 1 Univers 75 mg 3-11 tablet by ity of tablet 00:00: mouth 00 daily. Medical Branch atorvastati 2021-0 Yes [id number] 20mg Take 1 [facility] 20 mg 3-11 tablet by [facility] tablet 00:00: mouth at [place] 00 bedtime. [facility] lisinopriL 2021-0 Yes [id number] 20mg Take 1 [facility] 20 mg 3-11 tablet by [facility] of tablet 00:00: mouth 2 00 (two) Medical times Branch daily. montelukast 2021-0 Yes [id number] 10mg Take 1 [facility] 10 mg 3-11 tablet by [facility] of tablet 00:00: mouth [place] 00 daily. [facility] gabapentin 2021-0 Yes [id number] 300mg Take 1 [facility] 300 mg 3-11 capsule by [facility] of capsule 00:00: mouth 3 00 (three) Medical times Branch daily. amLODIPine 2021-0 Yes [id number] 10mg Take 1 [facility] 10 mg 3-11 tablet by [facility] of tablet 00:00: mouth [place] 00 daily. [facility] baclofen 10 0 Yes [id number] 10mg Take 1 [facility] mg tablet 3-11 tablet by it[facility] o f 00:00: mouth at [place] 00 bedtime. [facility] clopidogreL 2021-0 Yes [id number] 75mg Take 1 [facility] 75 mg 3-11 tablet by [facility] of tablet 00:00: mouth [place] 00 daily. [facility] atorvastati 2021-0 Yes [id number] 20mg Take 1 [facility] n 20 mg 3-11 tablet by [facility] of tablet 00:00: mouth at [place] 00 bedtime. [facility] lisinopriL 2021-0 Yes [id number] 20mg Take 1 [facility] 20 mg 3-11 tablet by [facility] of tablet 00:00: mouth 2 (two) Medical times Branch daily. montelukast 2021-0 Yes [id number] 10mg Take 1 [facility] 10 mg 3-11 tablet by [facility] of tablet 00:00: mouth 00 daily. [facility] gabapentin 2021-0 Yes [id number] 300mg Take 1 [facility] 300 mg 3-11 capsule by [facility] of capsule 00:00: mouth 3 (three) Medical times Branch daily. amLODIPine 2021-0 Yes [id number] 10mg Take 1 [facility] 10 mg 3-11 tablet by [facility] of tablet 00:00: mouth 00 daily. [facility] baclofen 10 0 Yes [id number] 10mg Take 1 [facility] mg tablet 3-11 tablet by it[facility] o f 00:00: mouth at [place] 00 bedtime. [facility] clopidogreL 2021-0 Yes [id number] 75mg Take 1 [facility] 75 mg 3-11 tablet by [facility] of tablet 00:00: mouth 00 daily. [facility] atorvastati 2021-0 Yes [id number] 20mg Take 1 [facility] n 20 mg 3-11 tablet by [facility] of tablet 00:00: mouth at [place] 00 bedtime. [facility] lisinopriL 2021-0 Yes [id number] 20mg Take 1 [facility] 20 mg 3-11 tablet by [facility] of tablet 00:00: mouth 2 (two) Medical times Branch daily. montelukast 2021-0 Yes [id number] 10mg Take 1 [facility] 10 mg 3-11 tablet by [facility] of tablet 00:00: mouth 00 daily. [facility] gabapentin 2021-0 Yes [id number] 300mg Take 1 [facility] 300 mg 3-11 capsule by [facility] of capsule 00:00: mouth 3 00 (three) Medical times Branch daily. amLODIPine 2021-0 Yes [id number] 10mg Take 1 [facility] 10 mg 3-11 tablet by [facility] of tablet 00:00: mouth [place] 00 daily. [facility] baclofen 10 2021-0 Yes [id number] 10mg Take 1 [facility] mg tablet 3-11 tablet by [facility] o f 00:00: mouth at [place] 00 bedtime. [facility] clopidogreL 2021-0 Yes [id number] 75mg Take 1 [facility] 75 mg 3-11 tablet by [facility] of tablet 00:00: mouth [place] 00 daily. [facility] atorvastati 2021-0 Yes [id number] 20mg Take 1 [facility] n 20 mg 3-11 tablet by [facility] of tablet 00:00: mouth at [place] 00 bedtime. [facility] lisinopriL 2021-0 Yes [id number] 20mg Take 1 [facility] 20 mg 3-11 tablet by [facility] of tablet 00:00: mouth 2 00 (two) Medical times Branch daily. montelukast 2021-0 Yes [id number] 10mg Take 1 [facility] 10 mg 3-11 tablet by [facility] of tablet 00:00: mouth [place] 00 daily. [facility] gabapentin 2021-0 Yes [id number] 300mg Take 1 [facility] 300 mg 3-11 capsule by [facility] of capsule 00:00: mouth 3 00 (three) Medical times Branch daily. amLODIPine 2021-0 Yes [id number] 10mg Take 1 [facility] 10 mg 3-11 tablet by [facility] of tablet 00:00: mouth [place] 00 daily. [facility] baclofen 10 2021-0 Yes [id number] 10mg Take 1 [facility] mg tablet 3-11 tablet by it[facility] o f 00:00: mouth at [place] 00 bedtime. [facility] clopidogreL 2021-0 Yes [id number] 75mg Take 1 [facility] 75 mg 3-11 tablet by [facility] of tablet 00:00: mouth [place] 00 daily. [facility] atorvastati 2021-0 Yes [id number] 20mg Take 1 [facility] n 20 mg 3-11 tablet by [facility] of tablet 00:00: mouth at [place] 00 bedtime. [facility] lisinopriL 2021-0 Yes [id number] 20mg Take 1 [facility] 20 mg 3-11 tablet by [facility] of tablet 00:00: mouth 2 [place] 00 (two) Medical times Branch daily. montelukast 2021-0 Yes [id number] 10mg Take 1 [facility] 10 mg 3-11 tablet by [facility] of tablet 00:00: mouth [place] 00 daily. [facility] amLODIPine 2021-0 Yes [id number] 10mg Take 1 [facility] 10 mg 3-11 tablet by [facility] of tablet 00:00: mouth [place] 00 daily. [facility] baclofen 10 2021-0 Yes [id number] 10mg Take 1 [facility] mg tablet 3-11 tablet by it[facility] o f 00:00: mouth at [place] 00 bedtime. [facility] clopidogreL 2021-0 Yes [id number] 75mg Take 1 [facility] 75 mg 3-11 tablet by [facility] of tablet 00:00: mouth [place] 00 daily. [facility] atorvastati 0 Yes [id number] 20mg Take 1 [facility] n 20 mg 3-11 tablet by [facility] of tablet 00:00: mouth at [place] 00 bedtime. [facility] lisinopriL 2021-0 Yes [id number] 20mg Take 1 [facility] 20 mg 3-11 tablet by [facility] of tablet 00:00: mouth 2 00 (two) Medical times Branch daily. montelukast 0 Yes [id number] 10mg Take 1 [facility] 10 mg 3-11 tablet by [facility] of tablet 00:00: mouth [place] 00 daily. [facility] amLODIPine 2021-0 Yes [id number] 10mg Take 1 [facility] 10 mg 3-11 tablet by [facility] of tablet 00:00: mouth [place] 00 daily. [facility] baclofen 10 2021-0 Yes [id number] 10mg Take 1 [facility] mg tablet 3-11 tablet by ity o f 00:00: mouth at [place] 00 bedtime. [facility] clopidogreL 2021-0 Yes [id number] 75mg Take 1 [facility] 75 mg 3-11 tablet by [facility] of tablet 00:00: mouth [place] 00 daily. [facility] atorvastati 2021-0 Yes [id number] 20mg Take 1 [facility] n 20 mg 3-11 tablet by [facility] of tablet 00:00: mouth at [place] 00 bedtime. [facility] lisinopriL 2021-0 Yes [id number] 20mg Take 1 [facility] 20 mg 3-11 tablet by [facility] of tablet 00:00: mouth 2 [place] 00 (two) Medical times Branch daily. montelukast 2021-0 Yes [id number] 10mg Take 1 [facility] 10 mg 3-11 tablet by [facility] of tablet 00:00: mouth [place] 00 daily. [facility] amLODIPine 2021-0 Yes [id number] 10mg Take 1 [facility] 10 mg 3-11 tablet by [facility] of tablet 00:00: mouth [place] 00 daily. [facility] baclofen 10 0 Yes [id number] 10mg Take 1 [facility] mg tablet 3-11 tablet by ity o f 00:00: mouth at [place] 00 bedtime. [facility] clopidogreL 2021-0 Yes [id number] 75mg Take 1 [facility] 75 mg 3-11 tablet by [facility] of tablet 00:00: mouth [place] 00 daily. [facility] atorvastati 0 Yes [id number] 20mg Take 1 [facility] n 20 mg 3-11 tablet by [facility] of tablet 00:00: mouth at [place] 00 bedtime. [facility] lisinopriL 0 Yes [id number] 20mg Take 1 [facility] 20 mg 3-11 tablet by [facility] of tablet 00:00: mouth 2 00 (two) Medical times Branch daily. montelukast 0 Yes [id number] 10mg Take 1 [facility] 10 mg 3-11 tablet by [facility] of tablet 00:00: mouth [place] 00 daily. [facility] amLODIPine 2021-0 Yes [id number] 10mg Take 1 [facility] 10 mg 3-11 tablet by [facility] of tablet 00:00: mouth [place] 00 daily. [facility] baclofen 10 2021-0 Yes [id number] 10mg Take 1 [facility] mg tablet 3-11 tablet by it[facility] o f 00:00: mouth at [place] 00 bedtime. [facility] clopidogreL 2021-0 Yes [id number] 75mg Take 1 [facility] 75 mg 3-11 tablet by [facility] of tablet 00:00: mouth [place] 00 daily. [facility] atorvastati 2021-0 Yes [id number] 20mg Take 1 [facility] n 20 mg 3-11 tablet by [facility] of tablet 00:00: mouth at [place] 00 bedtime. [facility] lisinopriL 2021-0 Yes [id number] 20mg Take 1 [facility] 20 mg 3-11 tablet by [facility] of tablet 00:00: mouth 2 00 (two) Medical times Branch daily. montelukast 2021-0 Yes [id number] 10mg Take 1 [facility] 10 mg 3-11 tablet by [facility] of tablet 00:00: mouth [place] 00 daily. [facility] lisinopriL 2021-0 Yes [id number] 20mg Take 1 [facility] 20 mg 3-11 tablet by [facility] of tablet 00:00: mouth 2 00 (two) Medical times Branch daily. gabapentin 2021-0 Yes [id number] 300mg Take 1 [facility] 300 mg 3-11 capsule by [facility] of capsule 00:00: mouth 3 00 (three) Medical times Branch daily. amLODIPine 2021-0 Yes [id number] 10mg Take 1 [facility] 10 mg 3-11 tablet by [facility] of tablet 00:00: mouth [place] 00 daily. [facility] baclofen 10 2021-0 Yes [id number] 10mg Take 1 [facility] mg tablet 3-11 tablet by it[facility] o f 00:00: mouth at [place] 00 bedtime. [facility] clopidogreL 2021-0 Yes [id number] 75mg Take 1 [facility] 75 mg 3-11 tablet by [facility] of tablet 00:00: mouth [place] 00 daily. [facility] atorvastati 2021-0 Yes [id number] 20mg Take 1 [facility] n 20 mg 3-11 tablet by [facility] of tablet 00:00: mouth at [place] 00 bedtime. [facility] lisinopriL 2021-0 Yes [id number] 20mg Take 1 [facility] 20 mg 3-11 tablet by [facility] of tablet 00:00: mouth 2 00 (two) Medical times Branch daily. montelukast 2021-0 Yes [id number] 10mg Take 1 [facility] 10 mg 3-11 tablet by [facility] of tablet 00:00: mouth [place] 00 daily. [facility] gabapentin 2021-0 Yes [id number] 300mg Take 1 [facility] 300 mg 3-11 capsule by [facility] of capsule 00:00: mouth 3 00 (three) Medical times Branch daily. amLODIPine 2021-0 Yes [id number] 10mg Take 1 [facility] 10 mg 3-11 tablet by [facility] of tablet 00:00: mouth [place] 00 daily. [facility] baclofen 10 2021-0 Yes [id number] 10mg Take 1 [facility] mg tablet 3-11 tablet by it[facility] o f 00:00: mouth at [place] 00 bedtime. [facility] clopidogreL 2021-0 Yes [id number] 75mg Take 1 [facility] 75 mg 3-11 tablet by [facility] of tablet 00:00: mouth [place] 00 daily. [facility] atorvastati 2021-0 Yes [id number] 20mg Take 1 [facility] n 20 mg 3-11 tablet by [facility] of tablet 00:00: mouth at [place] 00 bedtime. [facility] lisinopriL 2021-0 Yes [id number] 20mg Take 1 [facility] 20 mg 3-11 tablet by [facility] of tablet 00:00: mouth 2 (two) Medical times Branch daily. montelukast 2021-0 Yes [id number] 10mg Take 1 [facility] 10 mg 3-11 tablet by [facility] of tablet 00:00: mouth 00 daily. [facility] gabapentin 2021-0 Yes [id number] 300mg Take 1 [facility] 300 mg 3-11 capsule by [facility] of capsule 00:00: mouth 3 (three) Medical times Branch daily. amLODIPine 2021-0 Yes [id number] 10mg Take 1 [facility] 10 mg 3-11 tablet by [facility] of tablet 00:00: mouth 00 daily. [facility] baclofen 10 2021-0 Yes [id number] 10mg Take 1 [facility] mg tablet 3-11 tablet by it[facility] o f 00:00: mouth at [place] 00 bedtime. [facility] clopidogreL 2021-0 Yes [id number] 75mg Take 1 [facility] 75 mg 3-11 tablet by [facility] of tablet 00:00: mouth 00 daily. [facility] atorvastati 2021-0 Yes [id number] 20mg Take 1 [facility] n 20 mg 3-11 tablet by [facility] of tablet 00:00: mouth at [place] 00 bedtime. [facility] lisinopriL 2021-0 Yes [id number] 20mg Take 1 [facility] 20 mg 3-11 tablet by [facility] of tablet 00:00: mouth 2 (two) Medical times Branch daily. montelukast 2021-0 Yes [id number] 10mg Take 1 [facility] 10 mg 3-11 tablet by [facility] of tablet 00:00: mouth [place] 00 daily. [facility] gabapentin 2021-0 Yes [id number] 300mg Take 1 [facility] 300 mg 3-11 capsule by [facility] of capsule 00:00: mouth 3 00 (three) Medical times Branch daily. amLODIPine 0 Yes [id number] 10mg Take 1 [facility] 10 mg 3-11 tablet by [facility] of tablet 00:00: mouth [place] 00 daily. [facility] baclofen 10 0 Yes [id number] 10mg Take 1 [facility] mg tablet 3-11 tablet by ity o f 00:00: mouth at [place] 00 bedtime. [facility] clopidogreL 0 Yes [id number] 75mg Take 1 [facility] 75 mg 3-11 tablet by [facility] of tablet 00:00: mouth [place] 00 daily. [facility] atorvastati Yes [id number] 20mg Take 1 [facility] n 20 mg 3-11 tablet by [facility] of tablet 00:00: mouth at [place] 00 bedtime. [facility] lisinopriL Yes [id number] 20mg Take 1 [facility] 20 mg 3-11 tablet by it[facility] of tablet 00:00: mouth 2 [place] 00 (two) Medical times Branch daily. montelukast Yes [id number] 10mg Take 1 [facility] 10 mg 3-11 tablet by [facility] of tablet 00:00: mouth [place] 00 daily. [facility] lisinopriL 2022- No [id number] 20mg Take 1 [facility] 20 mg 3-11 - tablet by it[facility] of tablet 00:00: 00:00 mouth 2 [place] 00 :00 (two) Medical times Branch daily. baclofen 10 2021- No [id number] 10mg Take 1 [facility] mg tablet 3-11 12-29 tablet by ity of 00:00: 00:00 mouth at [place] 00 :00 bedtime. [facility] clopidogreL 0 2021- No [id number] 75mg Take 1 [facility] 75 mg 3-11 12-29 tablet by [facility] of tablet 00:00: 00:00 mouth [place] 00 :00 daily. [facility] amLODIPine 0 2021- No [id number] 10mg Take 1 [facility] 10 mg 3-11 12-28 tablet by it[facility] of tablet 00:00: 00:00 mouth [place] 00 :00 daily. Medical Branch atorvastati 0 2- No [id number] 20mg Take 1 [facility] n 20 mg 3-11 12-28 tablet by it[facility] of tablet 00:00: 00:00 mouth at [place] 00 :00 bedtime. [facility] montelukast 2021- No [id number] 10mg Take 1 [facility] 10 mg 08-15 tablet by it[facility] of tablet 00:00: 00:00 mouth [place] 00 :00 daily. [facility] gabapentin 2021- No [id number] 300mg Take 1 [facility] 300 mg 3 10-03 capsule by it[facility] of capsule 00:00: 00:00 mouth 3 [place] 00 :00 (three) Medical times Branch daily. triamcinolo 2020-06 Yes Apply to Un sarah ne 0.5 % 0-26 area(s) 2 ity of cream 00:00: (two) [place] 00 times Medical daily. Branch triamcinolo 2020-06 Yes Apply to Un [place] ne 0.5 % 0-26 area(s) 2 ity of cream 00:00: (two) [place] 00 times Medical daily. Branch triamcinolo 2020-06 [...] [place] 00 times Medical daily. Branch triamcinolo 2020- Yes Apply to Un [place] ne 0.5 % 0-26 area(s) 2 ity of cream 00:00: (two) [place] 00 times Medical daily. Branch triamcinolo 2020- Yes Apply to Un [place] 0.5 % 0-26 area(s) 2 ity of cream 00:00: (two) [place] 00 times Medical daily. Branch triamcinolo 2020- Yes Apply to Un [place] 0.5 % 0-26 area(s) 2 ity of cream 00:00: (two) [place] 00 times Medical daily. Branch triamcinolo 2020- Yes Apply to Un [place] ne 0.5 % 0-26 area(s) 2 ity of cream 00:00: (two) [place] 00 times Medical daily. Branch triamcinolo 2020- Yes Apply to Un [place] ne 0.5 % 0-26 area(s) 2 ity of cream 00:00: (two) [place] 00 times Medical daily. Branch triamcinolo 2020- Yes Apply to Un [place] 0.5 % 0-26 area(s) 2 ity of cream 00:00: (two) [place] 00 times Medical daily. Branch triamcinolo 2020- Yes Apply to Un [place] 0.5 % 0-26 area(s) 2 ity of cream 00:00: (two) [place] 00 times Medical daily. Branch triamcinolo 2020- Yes Apply to Un [place] ne 0.5 % 0-26 area(s) 2 ity of cream 00:00: (two) [place] 00 times Medical daily. Branch triamcinolo 2020- Yes Apply to Un [place] ne 0.5 % 0-26 area(s) 2 ity of cream 00:00: (two) [place] 00 times Medical daily. Branch triamcinolo 2020- Yes Apply to Un [place] ne 0.5 % 0-26 area(s) 2 ity of cream 00:00: (two) [place] 00 times Medical daily. Branch triamcinolo 2020- Yes Apply to Un [place] ne 0.5 % 0-26 area(s) 2 ity of cream 00:00: (two) [place] 00 times Medical daily. Branch triceciliacinolo 2020- Yes Apply to Un [place] ne 0.5 % 0-26 area(s) 2 ity of cream 00:00: (two) [place] 00 times Medical daily. Branch triceciliacinolo 2020- Yes Apply to Un [place] ne 0.5 % 0-26 area(s) 2 ity of cream 00:00: (two) [place] 00 times Medical daily. Branch masoncinolo 2020- Yes Apply to Un [place] ne 0.5 % 0-26 area(s) 2 ity of cream 00:00: (two) [place] 00 times Medical daily. Branch sildenafil 2019-0 Yes [id number] 20mg Take 1 [facility] 20 mg 4-15 tablet by ity of tablet 00:00: mouth [place] 00 daily. Medical Branch sildenafil 2019-0 Yes [id number] 20mg Take 1 [facility] 20 mg 4-15 tablet by ity of tablet 00:00: mouth [place] 00 daily. [facility] sildenafil 2019-0 Yes [id number] 20mg Take 1 [facility] 20 mg 4-15 tablet by ity of tablet 00:00: mouth [place] 00 daily. [facility] Branch sildenafil 2019-0 Yes [id number] 20mg Take 1 [facility] 20 mg 4-15 tablet by ity of tablet 00:00: mouth [place] 00 daily. [facility] Branch sildenafil 2019-0 Yes [id number] 20mg Take 1 [facility] 20 mg 4-15 tablet by ity of tablet 00:00: mouth [place] 00 daily. [facility] Branch sildenafil 2019-0 Yes [id number] 20mg Take 1 [facility] 20 mg 4-15 tablet by ity of tablet 00:00: mouth [place] 00 daily. Medical Branch sildenafil 2019-0 Yes [id number] 20mg Take 1 [facility] 20 mg 4-15 tablet by ity of tablet 00:00: mouth [place] 00 daily. [facility] sildenafil 2019-0 Yes [id number] 20mg Take 1 [facility] 20 mg 4-15 tablet by ity of tablet 00:00: mouth [place] 00 daily. [facility] sildenafil 2019-0 Yes [id number] 20mg Take 1 [facility] 20 mg 4-15 tablet by ity of tablet 00:00: mouth [place] 00 daily. [facility] sildenafil 2019-0 Yes [id number] 20mg Take 1 [facility] 20 mg 4-15 tablet by ity of tablet 00:00: mouth [place] 00 daily. [facility] sildenafil 2019-0 Yes [id number] 20mg Take 1 [facility] 20 mg 4-15 tablet by ity of tablet 00:00: mouth [place] 00 daily. [facility] Branch sildenafil 2019-0 Yes [id number] 20mg Take 1 [facility] 20 mg 4-15 tablet by ity of tablet 00:00: mouth [place] 00 daily. [facility] sildenafil 2019-0 Yes [id number] 20mg Take 1 [facility] 20 mg 4-15 tablet by ity of tablet 00:00: mouth [place] 00 daily. [facility] sildenafil 2019-0 Yes [id number] 20mg Take 1 [facility] 20 mg 4-15 tablet by ity of tablet 00:00: mouth [place] 00 daily. [facility] sildenafil 2019-0 Yes [id number] 20mg Take 1 [facility] 20 mg 4-15 tablet by ity of tablet 00:00: mouth [place] 00 daily. [facility] sildenafil 2019-0 Yes [id number] 20mg Take 1 [facility] 20 mg 4-15 tablet by ity of tablet 00:00: mouth [place] 00 daily. [facility] sildenafil 2019-0 Yes [id number] 20mg Take 1 [facility] 20 mg 4-15 tablet by ity of tablet 00:00: mouth [place] 00 daily. [facility] sildenafil 2019-0 Yes [id number] 20mg Take 1 [facility] 20 mg 4-15 tablet by ity of tablet 00:00: mouth [place] 00 daily. [facility] sildenafil 2019-0 Yes [id number] 20mg Take 1 [facility] 20 mg 4-15 tablet by ity of tablet 00:00: mouth [place] 00 daily. [facility] sildenafil 2019-0 Yes [id number] 20mg Take 1 [facility] 20 mg 4-15 tablet by ity of tablet 00:00: mouth [place] 00 daily. [facility] sildenafil 2019-0 Yes [id number] 20mg Take 1 [facility] 20 mg 4-15 tablet by ity of tablet 00:00: mouth [place] 00 daily. [facility] Branch sildenafil 2019-0 Yes [id number] 20mg Take 1 [facility] 20 mg 4-15 tablet by ity of tablet 00:00: mouth [place] 00 daily. [facility] sildenafil 2019-0 Yes [id number] 20mg Take 1 [facility] 20 mg 4-15 tablet by ity of tablet 00:00: mouth [place] 00 daily. [facility] Branch fluticasone 2018-0 Yes [id number] 2{spray Use 2 [facility] (FLONASE) 6-04 } Sprays in ity o f 50 00:00: each [place] mcg/actuati 00 nostril Medic al on nasal daily. Branch spray fluticasone 2017-0 Yes [id number] 2{spray Use 2 [facility] (FLONASE) 6-04 } Sprays in ity o f 50 00:00: each [place] mcg/actuati 00 nostril Medic al on nasal daily. Branch spray fluticasone 2017-0 Yes [id number] 2{spray Use 2 [facility] (FLONASE) 6-04 } Sprays in ity o f 50 00:00: each [place] mcg/actuati 00 nostril Medic al on nasal daily. Branch spray fluticasone 2017-0 Yes [id number] 2{spray Use 2 [facility] (FLONASE) 6-04 } Sprays in ity o f 50 00:00: each [place] mcg/actuati 00 nostril Medic al on nasal daily. Branch spray fluticasone 2017- Yes [id number] 2{spray Use 2 [facility] (FLONASE) 6-04 } Sprays in ity o f 50 00:00: each [place] mcg/actuati 00 nostril Medic al on nasal daily. Branch spray fluticasone 2017- Yes [id number] 2{spray Use 2 [facility] (FLONASE) 6-04 } Sprays in ity o f 50 00:00: each [place] mcg/actuati 00 nostril Medic al on nasal daily. Branch spray fluticasone 2017-0 Yes [id number] 2{spray Use 2 [facility] (FLONASE) 6-04 } Sprays in ity o f 50 00:00: each [place] mcg/actuati 00 nostril Medic al on nasal daily. Branch spray fluticasone 2017-0 Yes [id number] 2{spray Use 2 [facility] (FLONASE) 6-04 } Sprays in ity o f 50 00:00: each [place] mcg/actuati 00 nostril Medic al on nasal daily. Branch spray fluticasone 2017-0 Yes [id number] 2{spray Use 2 [facility] (FLONASE) 6-04 } Sprays in ity o f 50 00:00: each [place] mcg/actuati 00 nostril Medic al on nasal daily. Branch spray fluticasone 2017-0 Yes [id number] 2{spray Use 2 [facility] (FLONASE) 6-04 } Sprays in ity o f 50 00:00: each [place] mcg/actuati 00 nostril Medic al on nasal daily. Branch spray fluticasone 2017-0 Yes [id number] 2{spray Use 2 [facility] (FLONASE) 6-04 } Sprays in ity o f 50 00:00: each [place] mcg/actuati 00 nostril Medic al on nasal daily. Branch spray fluticasone 2017-0 Yes [id number] 2{spray Use 2 [facility] (FLONASE) 6-04 } Sprays in ity o f 50 00:00: each [place] mcg/actuati 00 nostril Medic al on nasal daily. Branch spray fluticasone 2017-0 Yes [id number] 2{spray Use 2 [facility] (FLONASE) 6-04 } Sprays in ity o f 50 00:00: each [place] mcg/actuati 00 nostril Medic al on nasal daily. Branch spray fluticasone 2017-0 Yes [id number] 2{spray Use 2 [facility] (FLONASE) 6-04 } Sprays in ity o f 50 00:00: each [place] mcg/actuati 00 nostril Medic al on nasal daily. Branch spray fluticasone 2017- Yes [id number] 2{spray Use 2 [facility] (FLONASE) 6-04 } Sprays in ity o f 50 00:00: each [place] mcg/actuati 00 nostril Medic al on nasal daily. Branch spray fluticasone 2017-0 Yes [id number] 2{spray Use 2 [facility] (FLONASE) 6-04 } Sprays in ity o f 50 00:00: each [place] mcg/actuati 00 nostril Medic al on nasal daily. Branch spray fluticasone 2017-0 Yes [id number] 2{spray Use 2 [facility] (FLONASE) 6-04 } Sprays in ity o f 50 00:00: each [place] mcg/actuati 00 nostril Medic al on nasal daily. Branch spray fluticasone 2017-0 Yes [id number] 2{spray Use 2 [facility] (FLONASE) 6-04 } Sprays in ity o f 50 00:00: each [place] mcg/actuati 00 nostril Medic al on nasal daily. Branch spray fluticasone 2017- Yes [id number] 2{spray Use 2 [facility] (FLONASE) 6-04 } Sprays in ity o f 50 00:00: each [place] mcg/actuati 00 nostril Medic al on nasal daily. Branch spray fluticasone Yes [id number] 2{spray Use 2 [facility] (FLONASE) 6-04 } Sprays in ity o f 50 00:00: each [place] mcg/actuati 00 nostril Medic al on nasal daily. Branch spray fluticasone Yes [id number] 2{spray Use 2 [facility] (FLONASE) 6-04 } Sprays in ity o f 50 00:00: each [place] mcg/actuati 00 nostril Medic al on nasal daily. Branch spray fluticasone Yes [id number] 2{spray Use 2 [facility] (FLONASE) 6-04 } Sprays in ity o f 50 00:00: each [place] mcg/actuati 00 nostril Medic al on nasal daily. Branch spray fluticasone Yes [id number] 2{spray Use 2 [facility] (FLONASE) 6-04 } [...] Lancets Yes E11.9, use Univ ers Misc 9 to check ity of 00:00: blood [place] 00 glucose Medical once Branch before breakfast blood sugar Yes E11.9, use [facility] diagnostic 03-04 to check ity o f (BLOOD 00:00: blood [place] GLUCOSE 00 glucose Medical TEST) strip once Branch before breakfast Lancets Yes E11.9, use Univ ers Misc 9 to check ity of 00:00: blood [place] 00 glucose Medical once Branch before breakfast blood sugar Yes E11.9, use [facility] diagnostic 928 to check ity o f (BLOOD 00:00: blood [place] GLUCOSE 00 glucose Medical TEST) strip once Branch before breakfast Lancets 2017 Yes E11.9, use Univ ers Misc 28 to check ity of 00:00: blood [place] 00 glucose Medical once Branch before breakfast blood sugar Yes E11.9, use [facility] diagnostic 03-04 to check ity o f (BLOOD 00:00: blood [place] GLUCOSE 00 glucose Medical TEST) strip once Branch before breakfast Lancets Yes E11.9, use Univ ers Misc 28 to check ity of 00:00: blood [place] [...] blood sugar Yes E11.9, use [facility] diagnostic 9-28 to check ity o f (BLOOD 00:00: blood [place] GLUCOSE 00 glucose Medical TEST) strip once Branch before breakfast Lancets Yes E11.9, use Univ ers Misc 928 to check ity of 00:00: blood [place] 00 glucose Medical once Branch before breakfast blood sugar Yes E11.9, use [facility] diagnostic 9-28 to check ity o f (BLOOD 00:00: [...] Lancets Yes E11.9, use Univ ers Misc 9-28 [...] 2017 Yes E11.9, use Univ ers Misc 03-04 to check ity of 00:00: blood [place] 00 glucose Medical once Branch before breakfast blood sugar Yes E11.9, use [facility] diagnostic 03-04 to check ity o f (BLOOD 00:00: blood [place] GLUCOSE 00 glucose Medical TEST) strip once Branch before breakfast Lancets Yes E11.9, use Univ ers Misc 28 to check ity of 00:00: blood [place] [...] blood sugar Yes E11.9, use [facility] diagnostic 9-28 to check ity o f (BLOOD 00:00: blood [place] GLUCOSE 00 glucose Medical TEST) strip once Branch before breakfast Lancets 2017 Yes E11.9, use Univ ers Misc 928 to check ity of 00:00: blood [place] 00 glucose Medical once Branch before breakfast blood sugar Yes E11.9, use [facility] diagnostic 9-28 to check ity o f (BLOOD 00:00: blood [place] GLUCOSE 00 glucose Medical TEST) strip once Branch before breakfast Lancets 2017-0 Yes E11.9, use Univ ers Misc 9-28 to check ity of 00:00: blood [place] 00 glucose Medical once Branch before breakfast Blood-Gluco 2017-0 Yes E11.9, use [facility] se [...] to check ity of Kit 00:00: blood [place] [id number] glucose Medical once Branch daily, provide meter covered by insurance Immunizations Ordered Filled Immunization Date Status Comments [facility] e Immunization Name Name SARS-COV-2 COVID-19 2020-09-03 Completed Unive rsity of MODERNA VACCINE 00:00:00 [place] [facility] SARS-COV-2 COVID-19 2020-09-03 Completed Unive rsity of MODER[facility] VACCINE 00:00:00 [place] [facility] SARS-COV-2 COVID-19 2020-09-03 Completed Unive rsity of MODERNA VACCINE 00:00:00 [place] [facility] SARS-COV-2 COVID-19 2020-09-03 Completed Unive rsity of [place] VACCINE 00:00:00 [place] [facility] ical Branch SARS-COV-2 COVID-19 2020-09-03 Completed Unive rsity of MODERNA 12+ YRS 00:00:00 [facility] ical VACCINE Branch SARS-COV-2 COVID-19 2020-09-03 Completed Unive rsity of MODERNA 12+ YRS 00:00:00 [place] [facility] V[facility]INE [facility] SARS-COV-2 COVID-19 2020-09-03 Completed Unive rsity of MODERNA 12+ YRS 00:00:00 [place] [facility] V[facility]INE [facility] SARS-COV-2 COVID-19 2020-09-03 Completed Unive rsity of MODERNA 12+ YRS 00:00:00 [place] [facility] V[facility]INE [facility] SARS-COV-2 COVID-19 2020-09-03 Completed Unive rsity of MODERNA 12+ YRS 00:00:00 [place] [facility]INE [facility] SARS-COV-2 COVID-19 2020-09-03 Completed Unive rsity of MODERNA 12+ YRS 00:00:00 [place] [facility] SARS-COV-2 COVID-19 2020-09-03 Completed Unive rsity of MODERNA 12+ YRS 00:00:00 [place] [facility]INE [facility] SARS-COV-2 COVID-19 2020-09-03 Completed Unive rsity of MODERNA 12+ YRS 00:00:00 [place] [facility]INE [facility] SARS-COV-2 COVID-19 2020-09-03 Completed Unive rsity of MODERNA 12+ YRS 00:00:00 [place] [facility] SARS-COV-2 COVID-19 2020-09-03 Completed Unive rsity of MODERNA 12+ YRS 00:00:00 [place] [facility] SARS-COV-2 COVID-19 2020-09-03 Completed Unive rsity of MODERNA 12+ YRS 00:00:00 [place] [facility] SARS-COV-2 COVID-19 2020-09-03 Completed Unive rsity of MODERNA 12+ YRS 00:00:00 [place] [facility] SARS-COV-2 COVID-19 2020-09-03 Completed Unive rsity of MODERNA 12+ YRS 00:00:00 [place] [facility]INE [facility] SARS-COV-2 COVID-19 2020-09-03 Completed Unive rsity of MODERNA 12+ YRS 00:00:00 [place] [facility]INE [facility] SARS-COV-2 COVID-19 2020-09-03 Completed Unive rsity of MODERNA 12+ YRS 00:00:00 [place] [facility] SARS-COV-2 COVID-19 2020-09-03 Completed Unive rsity of MODERNA 12+ YRS 00:00:00 [facility] ical VACCINE Branch SARS-COV-2 COVID-19 2020-09-03 Completed Unive rsity of MODERNA VACCINE 00:00:00 [facility] ical Branch SARS-COV-2 COVID-19 2020-09-03 Completed Unive rsity of MODERNA VACCINE 00:00:00 [facility] ical Branch SARS-COV-2 COVID-19 2020-09-03 Completed Unive rsity of MODERNA VACCINE 00:00:00 [facility] ical Branch SARS-COV-2 COVID-19 2020-08-09 Completed Unive rsity of MODERNA VACCINE 00:00:00 [facility] ical Branch SARS-COV-2 COVID-19 2020-08-09 Completed Unive rsity of MODERNA VACCINE 00:00:00 [facility] ical Branch SARS-COV-2 COVID-19 2020-08-09 Completed Unive rsity of MODERNA VACCINE 00:00:00 [facility] ical Branch SARS-COV-2 COVID-19 2020-08-09 Completed Unive rsity of MODERNA 12+ YRS 00:00:00 [place] [facility] VACCINE [facility] SARS-COV-2 COVID-19 2020-08-09 Completed Unive rsity of MODERNA 12+ YRS 00:00:00 [place] [facility] VACCINE [facility] SARS-COV-2 COVID-19 2020-08-09 Completed Unive rsity of MODERNA 12+ YRS 00:00:00 [place] [facility] VACCINE [facility] SARS-COV-2 COVID-19 2020-08-09 Completed Unive rsity of MODERNA 12+ YRS 00:00:00 [place] [facility] VACCINE [facility] SARS-COV-2 COVID-19 2020-08-09 Completed Unive rsity of MODERNA 12+ YRS 00:00:00 [place] [facility] VACCINE [facility] SARS-COV-2 COVID-19 2020-08-09 Completed Unive rsity of MODERNA 12+ YRS 00:00:00 [place] [facility]INE [facility] SARS-COV-2 COVID-19 2020-08-09 Completed Unive rsity of MODERNA 12+ YRS 00:00:00 [place] [facility]INE [facility] SARS-COV-2 COVID-19 2020-08-09 Completed Unive rsity of MODERNA 12+ YRS 00:00:00 [place] [facility]INE [facility] SARS-COV-2 COVID-19 2020-08-09 Completed Unive rsity of MODERNA 12+ YRS 00:00:00 [place] [facility]INE [facility] SARS-COV-2 COVID-19 2020-08-09 Completed Unive rsity of MODERNA 12+ YRS 00:00:00 [place] [facility]INE [facility] SARS-COV-2 COVID-19 2020-08-09 Completed Unive rsity of MODERNA 12+ YRS 00:00:00 [place] [facility]INE [facility] SARS-COV-2 COVID-19 2020-08-09 Completed Unive rsity of MODERNA 12+ YRS 00:00:00 [place] [facility] VACCINE [facility] SARS-COV-2 COVID-19 2020-08-09 Completed Unive rsity of MODERNA 12+ YRS 00:00:00 [place] [facility] VACCINE [facility] SARS-COV-2 COVID-19 2020-08-09 Completed Unive rsity of MODERNA 12+ YRS 00:00:00 [place] [facility]INE [facility] SARS-COV-2 COVID-19 2020-08-09 Completed Unive rsity of MODERNA 12+ YRS 00:00:00 [facility] ical VACCINE Branch SARS-COV-2 COVID-19 2020-08-09 Completed Unive rsity of MODERNA 12+ YRS 00:00:00 [facility] ical VACCINE Branch SARS-COV-2 COVID-19 2020-08-09 Completed Unive rsity of MODERNA VACCINE 00:00:00 [facility] ical Branch SARS-COV-2 COVID-19 2020-08-09 Completed Unive rsity of MODERNA VACCINE 00:00:00 [facility] ical Branch SARS-COV-2 COVID-19 2020-08-09 Completed Unive rsity of MODER[facility] VACCINE 00:00:00 [facility] SARS-COV-2 COVID-19 2020-08-09 Completed Unive rsity of MODERNA VACCINE 00:00:00 [facility] TDAP 2016-09-10 Completed University of 00:00:00 [facility] TDAP 2016-09-10 Completed University of 00:00:00 [facility] TDAP 2016-09-10 Completed University of 00:00:00 [facility] TDAP 2016-09-10 Completed University of 00:00:00 [facility] TDAP 2016-09-10 Completed University of 00:00:00 [facility] TDAP 2016-09-10 Completed University of 00:00:00 [facility] TDAP 2016-09-10 Completed University of 00:00:00 [facility] TDAP 2016-09-10 Completed University of 00:00:00 [facility] TDAP 2016-09-10 Completed University of 00:00:00 [facility] TDAP 2016-09-10 Completed University of 00:00:00 [facility] TDAP 2016-09-10 Completed University of 00:00:00 [facility] TDAP 2016-09-10 Completed University of 00:00:00 [facility] TDAP 2016-09-10 Completed University of 00:00:00 [facility] TDAP 2016-09-10 Completed University of 00:00:00 [facility] TDAP 2016-09-10 Completed University of 00:00:00 [facility] TDAP 2016-09-10 Completed University of 00:00:00 [facility] TDAP 2016-09-10 Completed University of 00:00:00 [facility] TDAP 2016-09-10 Completed University of 00:00:00 [facility] TDAP 2016-09-10 Completed University of 00:00:00 [facility] TDAP 2016-09-10 Completed University of 00:00:00 [facility] TDAP 2016-09-10 Completed University of 00:00:00 [facility] TDAP 2016-09-10 Completed University of 00:00:00 [facility] TDAP 2016-09-10 Completed University of 00:00:00 [facility] Vital Signs Vital Name Observation Time Observation Value Comments Source Systolic blood 2022-10-01 21:14:00 133 mm[Hg] Univer sity of pressure [facility] Diastolic blood 2022-10-01 21:14:00 69 mm[Hg] Unive rsity of pressure [facility] Heart rate 2022-10-01 21:14:00 60 /min Universi ty of [facility] Body temperature 2022-10-01 21:14:00 36.72 Lilly [facility] ersity of [facility] Body height 2022-10-01 21:14:00 186.7 cm [facility]i ty of [facility] Body weight 2022-10-01 21:14:00 80.74 kg [facility]i ty of [facility] BMI 2022-10-01 21:14:00 23.17 kg/m2 Universi ty of [facility] Oxygen saturation in 2022-10-01 21:14:00 98 /min University Arterial blood by [facility] Pulse oximetry Branch Systolic blood 2022-04-13 19:19:00 137 mm[Hg] Univer sity of pressure [facility] Diastolic blood 2022-04-13 19:19:00 73 mm[Hg] Unive rsity of pressure [facility] Heart rate 2022-04-13 19:18:00 67 /min Universi ty of [facility] Body temperature 2022-04-13 19:18:00 36.83 Lilly [facility] ersity of [facility] Body height 2022-04-13 19:18:00 185.4 cm Universi ty of [facility] Body weight 2022-04-13 19:18:00 80.287 kg Universi ty of [facility] BMI 2022-04-13 19:18:00 23.35 kg/m2 Universi ty of [facility] Branch Oxygen saturation in 2022-04-13 19:18:00 97 /min University of Arterial blood by [facility] Pulse oximetry Branch Systolic blood 2022-03-06 20:43:00 138 mm[Hg] Univer sity of pressure [facility] Diastolic blood 2022-03-06 20:43:00 80 mm[Hg] Unive rsity of pressure [facility] Heart rate 2022-03-06 20:43:00 74 /min Universi ty of [facility] Body temperature 2022-03-06 20:43:00 36.11 Lilly [facility] ersity of [facility] Respiratory rate 2022-03-06 20:43:00 18 /min Univ ersity of [facility] Body weight 2022-03-06 20:43:00 80.287 kg Universi ty of [facility] BMI 2022-03-06 20:43:00 23.35 kg/m2 Universi ty of [facility] Systolic blood 2021-08-27 13:47:00 133 mm[Hg] Univer sity of pressure [facility] Diastolic blood 2021-08-27 13:47:00 81 mm[Hg] Unive rsity of pressure [facility] Heart rate 2021-08-27 13:47:00 68 /min Universi ty of [facility] Body temperature 2021-08-27 13:47:00 36.78 Lilly [facility] ersity of [facility] Respiratory rate 2021-08-27 13:47:00 16 /min Univ ersity of [facility] Body height 2021-08-27 13:47:00 185.4 cm Universi ty of [facility] Body weight 2021-08-27 13:47:00 85.095 kg Universi ty of [facility] BMI 2021-08-27 13:47:00 24.75 kg/m2 Universi ty of [facility] Oxygen saturation in 2021-08-27 13:47:00 100 /min University of Arterial blood by [facility] Pulse oximetry Branch Procedures Procedure Date / Time Performing Clinician Source Performed ASSIGNMENT OF BENEFITS 2022-04-13 19:07:05 Doctor Unassigned, No [facility] Name [facility] Branch FREE T4 2022-03-06 21:07:00 Ion Vogel [place] [facility] THYROID STIMULATING 2022-03-06 21:07:00 Ion Vogel [facility] HORMONE Medical Branch COMP. METABOLIC PANEL 2022-03-06 21:07:00 Ion Vogel [facility] ([id number]) Medical Branch LIPID PANEL 2022-03-06 21:07:00 Ion Vogel [facility] ([id number])(TOTAL Medical Branch CHOLESTEROL, TRIGLYCERIDES, HDL) CBC WITH DIFF 2022-03-06 21:07:00 Ion Vogel [facility] Branch GLYCOSYLATED HEMOGLOBIN 2022-03-06 21:07:00 Ion Vogel [facility] (A1C) Medical Branch Encounters Start End Encounter Admission Attending Care Care Encounter Source Date/Time Date/Time Type Type Clinicians Facility Department ID 2022-10-22 2022-10-22 Refill Elijah [facility] 1.2.840.114 [id number] Univers 00:00:00 00:00:00 [facility] 350.1.13.10 ity of [place] 4.2.7.2.686 David as ELIEZER?BLEA [id number] [facility] [address] MEDICAL OFFICE [facility] 2022-10-01 2022-10-01 [facility], Ang - Db [facility] 1.2.840.1 [id number] Univers 15:45:00 17:09:29 Visit Tricia Nava [facility] 350.1.13.10 ity of [place] 4.2.7.2.686 David as ELIEZER?BLEA [id number] [facility] [address] MEDICAL OFFICE BUILDING 2022-10-01 2022-10-01 Office Elijah [facility] 1.2.840.114 [id number] Univers 16:20:00 17:00:00 Visit [facility] 350.1.13.10 ity of [place] 4.2.7.2.686 David as ELIEZER?BLEA [id number] [address] MEDICAL OFFICE BUILDING 2022-10-01 2022-10-01 Outpatient TRICIA PATEL [facility] [id number] Univers 15:45:00 15:45:00 TRICIA NAVA [facility] 2022-09-03 2022-09-03 Outpatient R KLEY, [facility] [id number] Univers 16:20:00 16:20:00 RITIKA NAVAVERNON nugent [facility] 2022-08-15 2022-08-15 Ion Vincent 1.2.840.114 [id number] Univers 00:00:00 00:00:00 [place] P[place]IATRIC 350.1.13.10 [place] [id number] [address] 2022-08-04 2022-08-04 Ion Vincent 1.2.840.114 [id number] Univers 00:00:00 00:00:00 [place] PEDIATRIC 350.1.13.10 [place] [id number] [address] 2022-07-14 2022-07-14 [facility] 1.2.840.114 [id number] Univers 00:00:00 00:00:00 [facility] 350.1.13.10 ity of [place] 4.2.7.2.686 David as ELIEZER?BLEA [id number] [address] OFFICE [facility] 2022-07-13 2022-07-13 [facility] 1.2.840.114 [id number] Univers 00:00:00 00:00:00 [facility] 350.1.13.10 ity of [place] 4.2.7.2.686 [place] as ELIEZER?BLEA [id number] [address] 2022-07-01 2022-07-01 Ion Vincent 1.2.840.114 [id number] Univers 00:00:00 00:00:00 Y PEDIATRIC 350.1.13.10 [place] [id number] [address] 2022-06-03 2022-06-03 Ion Vincent 1.2.840.114 [id number] Univers 00:00:00 00:00:00 Y PEDIATRIC 350.1.13.10 [place] [id number] [address] 2022-04-13 2022-04-13 Outpatient R ELIJAH [facility] [id number] Univers 13:00:00 13:55:28 [place] ity [facility] 2022-04-13 2022-04-13 Office Elijah [facility] 1.2.840.114 [id number] Univers 13:00:00 13:55:28 Visit [facility] 350.1.13.10 ity of [place] 4.2.7.2.686 David as ELIEZER?BLEA [id number] Ia randalldarci [address] MEDICAL OFFICE BUILDING 2022-04-13 2022-04-13 Orders Doctor FARHAD 1.2.840.114 [id number] Univers 00:00:00 00:00:00 Only Unassigned, VIDAL 350.1.13.10 ity of [place] [facility] 4.2.7.2.686 David as [id number] [address] 2022-03-06 2022-03-06 Office Ion Vogel 1.2.840.114 [id number] Univers 16:15:00 16:15:00 Visit Y PEDIATRIC 350.1.13.10 [place] [id number] [address] 2022-03-06 2022-03-06 Outpatient ION ROCHA [facility] [id number] Univers 16:15:00 16:03:24 ity of [facility] 2022-03-06 2022-03-06 Refill Ion Vogel 1.2.840.114 [id number] Univers 00:00:00 00:00:00 Y PEDIATRIC 350.1.13.10 [place] [id number] [address] 2021-12-02 2021-12-02 Telephone Ion Vogel 1.2.840.114 [id number] Univers 00:00:00 00:00:00 Y PEDIATRIC 350.1.13.10 [place] [id number] [address] 2021-12-01 2021-12-01 Ion Vincent 1.2.840.114 [id number] Univers 00:00:00 00:00:00 Y PEDIATRIC 350.1.13.10 [place] [id number] [address] 2021-12-01 2021-12-01 Ion Vincent 1.2.840.114 [id number] Univers 00:00:00 00:00:00 Y PEDIATRIC 350.1.13.10 [place] [id number] [address] 2021-11-04 2021-11-04 Outpatient R ION VOGEL [facility] [id number] Univers 11:00:00 11:00:00 ity of [facility] 2021-10-01 2021-10-01 Ion Vincent 1.2.840.114 [id number] Univers 00:00:00 00:00:00 Y PEDIATRIC 350.1.13.10 [place] [id number] [address] 2021-09-18 2021-09-18 Telephone Ion Vogel 1.2.840.114 [id number] Univers 00:00:00 00:00:00 Y PEDIATRIC 350.1.13.10 [place] [id number] [address] 2021-08-27 2021-08-27 Office Ion Vogel 1Gio2.840.114 [id number] Univers 08:45:00 09:07:33 Visit Y PEDIATRIC 350.1.13.10 [place] [id number] [address] 2021-08-27 2021-08-27 Outpatient R ION VOGEL [facility] [id number] Univers 08:45:00 09:07:33 ity of [facility] 2021-08-27 2021-08-27 Outpatient ION ROCHA [facility] [id number] Univers 08:45:00 08:45:00 ity of [facility] 2021-08-19 2021-08-19 Ion Carter 1.2.840.114 [id number] Univers 00:00:00 00:00:00 Y PEDIATRIC 350.1.13.10 [place] [id number] [address] 2021-08-14 2021-08-14 Refill Ion Vogel 1.2.840.114 [id number] Univers 00:00:00 00:00:00 Y PEDIATRIC 350.1.13.10 [place] [id number] [address] 2021-08-11 2021-08-11 Ion Carter 1.2.840.114 [id number] Univers 00:00:00 00:00:00 Y PEDIATRIC 350.1.13.10 [place] [id number] [address] 2021-08-05 2021-08-05 Ion Carter 1.2.840.114 [id number] Univers 00:00:00 00:00:00 Y PEDIATRIC 350.1.13.10 [place] [id number] [address] 2021-08-04 2021-08-04 Outpatient ION ROCHA [facility] [id number] Univers 14:00:00 14:00:00 ity of [facility] 2021-08-01 2021-08-01 Ion Carter 1.2.840.114 [id number] Univers 00:00:00 00:00:00 Y PEDIATRIC 350.1.13.10 [place] [id number] [address] 2021-07-28 2021-07-28 Ion Vincent 1.2.840.114 [id number] Univers 00:00:00 00:00:00 Y PEDIATRIC 350.1.13.10 [place] [id number] [address] 2021-07-28 2021-07-28 Ion Vincent 1.2.840.114 [id number] Univers 00:00:00 00:00:00 Y PEDIATRIC 350.1.13.10 [place] [id number] [address] 2021-06-26 2021-06-26 Orders Doctor FARHAD 1.2.840.114 [id number] Univers 00:00:00 00:00:00 Only Unassigned, VIDAL 350.1.13.10 ity of [place] [facility] 4.2.7.2.686 David as [id number] [place] [address] Branch 2021-06-10 2021-06-10 Telephone Ion Vogel 1.2.840.114 [id number] Univers 00:00:00 00:00:00 Y PEDIATRIC 350.1.13.10 [place] [id number] [address] 2021-06-04 2021-06-04 Ion Vincent 1.2.840.114 [id number] Univers 00:00:00 00:00:00 Y PEDIATRIC 350.1.13.10 [place] [id number] [address] 2021-06-04 2021-06-04 Telephone Ion Vogel 1.2.840.114 [id number] Univers 00:00:00 00:00:00 Y PEDIATRIC 350.1.13.10 [place] [id number] [address] 2021-05-20 2021-05-20 Orders Doctor FARHAD 1.2.840.114 [id number] Univers 00:00:00 00:00:00 Only Unassigned, VIDAL 350.1.13.10 ity of [place] [facility] 4.2.7.2.686 [place] as [id number] [address] 2021-05-19 2021-05-19 Telephone Ion Vogel 1.2.840.114 [id number] Univers 00:00:00 00:00:00 Y PEDIATRIC 350.1.13.10 [place] [id number] [address] 2021-05-05 2021-05-05 Outpatient R ION VOGEL [facility] [id number] Univers 14:00:00 15:53:13 ity of [facility] 2021-05-05 2021-05-05 Office Ion Vogel 1.2.840.114 [id number] Univers 13:24:50 15:53:13 Visit Y PEDIATRIC 350.1.13.10 [place] [id number] [address] 2021-05-05 2021-05-05 Outpatient R ION VOGEL [facility] [id number] Univers 14:00:00 14:00:00 ity of [facility] 2021-04-25 2021-04-25 Ion Carter 1.2.840.114 [id number] Univers 00:00:00 00:00:00 Y PEDIATRIC 350.1.13.10 [place] [id number] [address] 2021-04-24 2021-04-24 Ion Carter 1.2.840.114 [id number] Univers 00:00:00 00:00:00 Y PEDIATRIC 350.1.13.10 [place] [id number] [place] [address] Branch [facility] 2021-04-21 2021-04-21 Telephone Ion Vogel 1Gio2.840.114 [id number] Univers 00:00:00 00:00:00 Y PEDIATRIC 350.1.13.10 [place] [id number] [address] 2021-04-21 2021-04-21 Ion Carter 1.2.840.114 [id number] Univers 00:00:00 00:00:00 Y PEDIATRIC 350.1.13.10 [place] [id number] [address] 2021-04-17 2021-04-17 Outpatient R ION VOGEL [facility] [id number] Univers 10:00:00 10:22:47 ity of [facility] 2021-04-17 2021-04-17 Office Ion Vogel 1Gio2.840.114 [id number] Univers 09:31:06 10:22:47 Visit Y PEDIATRIC 350.1.13.10 [place] [id number] [address] 2021-04-17 2021-04-17 Orders Ion Vogel 1Gio2.840.114 [id number] Univers 00:00:00 00:00:00 Only Y VIDAL 350.1.13.10 it y of [facility] 4.2.7.2.686 David as [id number] [address] 2021-04-16 2021-04-16 Outpatient R ИРИНА [facility] [id number] Univers 13:00:00 13:00:00 [place] ity [facility] 2021-04-16 2021-04-16 Telephone Ion Vogel 1Gio2.840.114 [id number] Univers 00:00:00 00:00:00 Y PEDIATRIC 350.1.13.10 [place] [id number] [address] 2021-03-31 2021-03-31 Refill Ion Vogel 1.2.840.114 [id number] Univers 00:00:00 00:00:00 Y Pediatric 350.1.13.10 [place] [id number] [place] [address] Branch [facility] 2021-03-28 2021-03-28 Telephone Ion Vogel 1.2.840.114 [id number] Univers 00:00:00 00:00:00 Y Pediatric 350.1.13.10 [place] [id number] [address] 2021-03-28 2021-03-28 Telephone Ion Vogel 1.2.840.114 [id number] Univers 00:00:00 00:00:00 Y Pediatric 350.1.13.10 [place] [id number] [address] 2021-03-27 2021-03-27 Office Ion Vogel 1.2.840.114 [id number] Univers 14:42:10 15:43:28 Visit Y Pediatric 350.1.13.10 [place] [id number] [address] 2021-03-27 2021-03-27 Outpatient R ION VOGEL [facility] [id number] Univers 14:45:00 14:45:00 ity of [facility] 2021-03-27 2021-03-27 Orders Doctor LLAMAS 1.2.840.114 [id number] Univers 00:00:00 00:00:00 Only Unassigned, VIDAL 350.1.13.10 ity of [place] [facility] 4.2.7.2.686 David as [id number] [address] 2021-03-21 2021-03-21 Inpatient EM [place], HCACL AERS [id number] [facility] 02:58:00 07:32:00 Wilfredo Coyle [facility] 2019-08-21 2019-08-21 Outpatient R VOGELION Gardner [facility] [id number] [facility] 09:00:00 09:00:00 ity of [facility] 2019-08-09 2019-08-09 Refill VogelIon gardner 1.2.840.114 [id number] Univers 00:00:00 00:00:00 Y Pediatric 350.1.13.10 [place] [id number] [place] [address] [facility] Results Test Description Test Time Test Comments Results Result Comments Source GLYCOSYLATED HEMOGLOBIN (A1C) 2022-03-07 06:29:32 Test Item Value Reference Range Interpretation Comme nts HGB A1C (test code = 4548-4) 5.7 % 4-5.7 JUAN CARLOS (test code = JUAN CARLOS) Reference RangesNormal: <5.7%Prediabetes: 5.7 - 6.4%Diabetes: > 6.5% Lab Interpretation (test code = 84922-0) [facility]22-03-07 06:29:32 Test Item Value Reference Range Interpretation Comments HGB A1C (test code = 5.7 % 4-5.7 4548-4) JUAN CARLOS (test code = JUAN CARLOS) Reference RangesNormal: <5.7%Prediabetes: 5.7 - 6.4%Diabetes: > 6.5% Lab Interpretation (test Normal code = 25719-1) [facility] [id number] 06:06:49 Test Item Value Reference Range Interpretation Comments TSH (test code = See_Comment [Automated message] [id number]) The system [employer] generated this result transmitted ref erence range: 0.45 - 4 .70 mIU/L. The refe rence range was not u sed to interpret this result as normal/abnor mal. Lab Interpretation (test Normal code = 27640-1) [facility] [id number] 06:06:49 Test Item Value Reference Range Interpretation Comments TSH (test code = See_Comment [Automated message] [id number]) The system [employer] generated this result transmitted ref erence range: 0.45 - 4 .70 mIU/L. The refe rence range was not u sed to interpret this result as normal/abnor mal. Lab Interpretation (test Normal code = 14267-4) [facility] [id number] 05:52:47 Test Item Value Reference Range Interpretation Comments FREE T4 (test code = See_Comment [Autom ated message] [id number]) The system [employer] generated this result transmitted ref erence range: 0.78 - 2 .20 ng/dL:. The ref erence range was not u sed to interpret this result as normal/abnor mal. Lab Interpretation (test Normal code = 65355-1) [facility] 05:52:47 Test Item Value Reference Range Interpretation Comments FREE T4 (test code = See_Comment [Autom ated message] [id number]) The system [employer] generated this result transmitted ref erence range: 0.78 - 2 .20 ng/dL:. The ref erence range was not u sed to interpret this result as normal/abnor mal. Lab Interpretation (test Normal code = 09967-9) [facility] METABOLIC PANEL ([id number])2022-03-07 05:51:06 Test Item Value Reference Range Interpretation Comments NA (test code = 143 mmol/L 135-145 2881868010) K (test code = 4.1 mmol/L 3.5-5 7006133414) CL (test code = 106 mmol/L 98-108 5539548086) CO2 TOTAL (test code 26 mmol/L 23-31 = 7006751092) AGAP (test code = 2-16 1168450527) BUN (test code = 13 mg/dL 7-23 3072642540) GLUCOSE (test code = 85 mg/dL 70-110 3183596412) CREATININE (test code 0.77 mg/dL 0.6-1.25 = 2257054008) TOTAL BILI (test code 0.6 mg/dL 0.1-1.1 = 2981466432) CALCIUM (test code = 9.3 mg/dL 8.6-10.6 1300620941) T PROTEIN (test code 7.3 g/dL 6.3-8.2 = 5349356710) ALBUMIN (test code = 4.5 g/dL 3.5-5 1307034274) ALK PHOS (test code = 90 U/L 34-122 8858492971) ALTv (test code = 34 U/L 5-50 1742-6) AST(SGOT) (test code 32 U/L 13-40 = 7578071130) eGFR (test code = mL/min/1.73m2 0746574622) JUAN CARLOS (test code = JUAN CARLOS) Association of Glomerular Filtration Rate (GFR) and Staging of Kidney Disease* + + +- +| GFR (mL/min/1.73 m2) ?| With Kidney Damage ?| ?Without Kidney Damage+ ------+ ----+ ------+| ?>90 ?| ?Stage one ?| ? Normal ?+ -+ + -+| ?60-89 ?| ?Stage two ?| ? Decreased GFR ? + + +- +| ?30-59 ?| ?Stage three ?| ? Stage three ? + + +- +| ?15-29 ?| ?Stage four ? | ? Stage four ?+ -+ + -+| ?<15 (or dialysis) ? ?| ?Stage five ? | ? Stage five ?+ -+ + -+ *Each stage assumes the associated GFR level has been in effect for at least three months. ?Stages 1 to 5, with or without kidney disease, indicate chronic kidney disease. Notes: Determination of stages one and two (with eGFR >59mL/min/1.73 m2) requires estimation of kidney damage for at least three months as defined by structural or functional abnormalities of the kidney, manifested by either:Pathological abnormalities or Markers of kidney damage (including abnormalities in the composition of the blood or urine or abnormalities in imaging tests). [id number][facility]TOTAL CHOLESTEROL, TRIGLYCERIDES, HDL)2022-03-07 05:51:06 Test Item Value Reference Range Interpretation Comments CHOL (test code = 129 mg/dL 120-200 6585610856) HDL (test code = 43 mg/dL See_Comment [Automated message] 0684490514) The system [employer] generated this result transmit blue reference range : >=40. The refer ence range was not u sed to interpret th is result as normal/abnormal . HDLC RATIO (test code = See_Comment [Au tomated message] 6689683855) The system [employer] generated this result transmit blue reference range : <=5.0. The refe rence range was not u sed to interpret th is result as normal/abnormal . TRIG (test code = 68 mg/dL 30-170 2889530282) LDL CHOL (test code = 72 mg/dL See_Comment [Auto mated message] 90747-0) The system [employer] generated this result transmit blue reference range : <=160. The refe rence range was not u sed to interpret th is result as normal/abnormal . VLDL (test code = 14 mg/dL 5-60 7303856954) Lab Interpretation (test Normal code = 09485-3) [facility]. METABOLIC PANEL ([id number])2022-03-07 05:51:06 Test Item Value Reference Range Interpretation Comments NA (test code = 143 mmol/L 135-145 9653734261) K (test code = 4.1 mmol/L 3.5-5 9958961963) CL (test code = 106 mmol/L 98-108 6252923401) CO2 TOTAL (test code 26 mmol/L 23-31 = 6071912438) AGAP (test code = 2-16 8751841373) BUN (test code = 13 mg/dL 7-23 8767791490) GLUCOSE (test code = 85 mg/dL 70-110 5402573548) CREATININE (test code 0.77 mg/dL 0.6-1.25 = 1822858736) TOTAL BILI (test code 0.6 mg/dL 0.1-1.1 = 9954786482) CALCIUM (test code = 9.3 mg/dL 8.6-10.6 4684250789) T PROTEIN (test code 7.3 g/dL 6.3-8.2 = 0768233904) ALBUMIN (test code = 4.5 g/dL 3.5-5 5349148867) ALK PHOS (test code = 90 U/L 34-122 3714825605) ALTv (test code = 34 U/L 5-50 1742-6) AST(SGOT) (test code 32 U/L 13-40 = 8692517137) eGFR (test code = mL/min/1.73m2 0587434724) JUAN CARLOS (test code = JUAN CARLOS) Association of Glomerular Filtration Rate (GFR) and Staging of Kidney Disease* + + +- +| GFR (mL/min/1.73 m2) ?| With Kidney Damage ?| ?Without Kidney Damage+ ------+ ----+ ------+| ?>90 ?| ?Stage one ?| ? Normal ?+ -+ + -+| ?60-89 ?| ?Stage two ?| ? Decreased GFR ? + + +- +| ?30-59 ?| ?Stage three ?| ? Stage three ? + + +- +| ?15-29 ?| ?Stage four ? | ? Stage four ?+ -+ + -+| ?<15 (or dialysis) ? ?| ?Stage five ? | ? Stage five ?+ -+ + -+ *Each stage assumes the associated GFR level has been in effect for at least three months. ?Stages 1 to 5, with or without kidney disease, indicate chronic kidney disease. Notes: Determination of stages one and two (with eGFR >59mL/min/1.73 m2) requires estimation of kidney damage for at least three months as defined by structural or functional abnormalities of the kidney, manifested by either:Pathological abnormalities or Markers of kidney damage (including abnormalities in the composition of the blood or urine or abnormalities in imaging tests). [facility] ([id number])(TOTAL CHOLESTEROL, TRIGLYCERIDES, HDL)2022-03-07 05:51:06 Test Item Value Reference Range Interpretation Comments CHOL (test code = 129 mg/dL 120-200 8512645162) HDL (test code = 43 mg/dL See_Comment [Automated message] 6072198254) The system [employer] generated this result transmit blue reference range : >=40. The refer ence range was not u sed to interpret th is result as normal/abnormal . HDLC RATIO (test code = See_Comment [Au tomated message] 8605187738) The system [employer] generated this result transmit blue reference range : <=5.0. The refe rence range was not u sed to interpret th is result as normal/abnormal . TRIG (test code = 68 mg/dL 30-170 0948709253) LDL CHOL (test code = 72 mg/dL See_Comment [Auto mated message] 02181-0) The system [employer] h generated this result transmit blue reference range : <=160. The refe rence range was not u sed to interpret th is result as normal/abnormal . VLDL (test code = 14 mg/dL 5-60 1249289596) Lab Interpretation (test Normal code = 93602-1) [facility] WITH [id number] 05:03:23 Test Item Value Reference Range Interpretation Comments WBC (test code = See_Comment [Automated 1090-2) message] The sy stem which generated this result transmitted reference range : 4.20 - 10.70 10*3/?L. The reference range was not used to interpret this result as normal/abnormal . RBC (test code = See_Comment [Automated 519-8) message] The sy stem which generated this result transmitted reference range : 4.26 - 5.52 10*6/?L. The reference range was not used to interpret this result as normal/abnormal . HGB (test code = 14.1 g/dL 12.2-16.4 718-7) HCT (test code = 43.2 % 38.4-49.3 4544-3) MCV (test code = 96.0 fL 81.7-95.6 H 787-2) MCH (test code = 31.3 pg 26.1-32.7 785-6) MCHC (test code = 32.6 g/dL 31.2-35 786-4) RDW-SD (test code = 48.6 fL 38.5-51.6 57057-6) RDW-CV (test code = 13.7 % 12.1-15.4 788-0) PLT (test code = See_Comment [Automated 777-3) message] The sy stem which generated this result transmitted reference range : 150 - 328 10*3/ ?L. The reference r azam was not used to interpret this result as normal/abnormal . MPV (test code = 10.3 fL 9.8-13 08228-2) NRBC/100 WBC (test See_Comment [Automat ed code = 8236941050) message] The system which generated this result transmitted reference range : 0.0 - 10.0 /100 WBCs. The refer ence range was not u sed to interpret th is result as normal/abnormal . NRBC x10^3 (test code See_Comment [Auto mated = 8122399417) message] The s ystem which generated this result transmitted reference range : 10*3/?L. The reference range was not used to interpret this result as normal/abnormal . GRAN MAT (NEUT) % 56.0 % (test code = 770-8) IMM GRAN % (test code 0.10 % = 4609898533) LYMPH % (test code = 34.3 % 736-9) MONO % (test code = 8.0 % 5905-5) EOS % (test code = 1.2 % 713-8) BASO % (test code = 0.4 % 706-2) GRAN MAT x10^3(ANC) 3.84 10*3/uL 1.99-6.95 (test code = 5049249336) IMM GRAN x10^3 (test 0-0.06 code = 6176307607) LYMPH x10^3 (test code 2.35 10*3/uL 1.09-3.23 = 731-0) MONO x10^3 (test code 0.55 10*3/uL 0.36-1.02 = 742-7) EOS x10^3 (test code = 0.08 10*3/uL 0.06-0.53 711-2) BASO x10^3 (test code 0.03 10*3/uL 0.01-0.09 = 704-7) Lab Interpretation Abnormal (test code = 92688-8) [facility] WITH [id number] 05:03:23 Test Item Value Reference Range Interpretation Comments WBC (test code = See_Comment [Automated 6690-2) message] The sy stem which generated this result transmitted reference range : 4.20 - 10.70 10*3/?L. The reference range was not used to interpret this result as normal/abnormal . RBC (test code = See_Comment [Automated 789-8) message] The sy stem which generated this result transmitted reference range : 4.26 - 5.52 10*6/?L. The reference range was not used to interpret this result as normal/abnormal . HGB (test code = 14.1 g/dL 12.2-16.4 718-7) HCT (test code = 43.2 % 38.4-49.3 4544-3) MCV (test code = 96.0 fL 81.7-95.6 H 787-2) MCH (test code = 31.3 pg 26.1-32.7 785-6) MCHC (test code = 32.6 g/dL 31.2-35 786-4) RDW-SD (test code = 48.6 fL 38.5-51.6 88329-9) RDW-CV (test code = 13.7 % 12.1-15.4 788-0) PLT (test code = See_Comment [Automated 777-3) message] The sy stem which generated this result transmitted reference range : 150 - 328 10*3/ ?L. The reference r azam was not used to interpret this result as normal/abnormal . MPV (test code = 10.3 fL 9.8-13 49995-1) NRBC/100 WBC (test See_Comment [Automat ed code = 0622679915) message] The system which generated this result transmitted reference range : 0.0 - 10.0 /100 WBCs. The refer ence range was not u sed to interpret th is result as normal/abnormal . NRBC x10^3 (test code See_Comment [Auto mated = 8550685419) message] The s ystem which generated this result transmitted reference range : 10*3/?L. The reference range was not used to interpret this result as normal/abnormal . GRAN MAT (NEUT) % 56.0 % (test code = 770-8) IMM GRAN % (test code 0.10 % = 2264336224) LYMPH % (test code = 34.3 % 736-9) MONO % (test code = 8.0 % 5905-5) EOS % (test code = 1.2 % 713-8) BASO % (test code = 0.4 % 706-2) GRAN MAT x10^3(ANC) 3.84 10*3/uL 1.99-6.95 (test code = 6726575929) IMM GRAN x10^3 (test 0-0.06 code = 3979452826) LYMPH x10^3 (test code 2.35 10*3/uL 1.09-3.23 = 731-0) MONO x10^3 (test code 0.55 10*3/uL 0.36-1.02 = 742-7) EOS x10^3 (test code = 0.08 10*3/uL 0.06-0.53 711-2) BASO x10^3 (test code 0.03 10*3/uL 0.01-0.09 = 704-7) Lab Interpretation Abnormal (test code = 01142-7) [id number] 13:07:00 Test Item Value Reference Range Interpretation Comments UA GLUCOSE DIPSTIC POC NEGATIVE NEGATIVE (test code = GLUUP) UA BILIRUBIN DIPSTICK NEGATIVE NEGATIVE (test code = BILU) UA KETONE DIPSTICK POC 1+ NEGATIVE A (test code = KETUP) UA SPECIFIC GRAVITY (test 1.010 1.005-1.030 N code = SGU) UA BLOOD DIPSTIC POC NEGATIVE NEGATIVE Perform ed by (test code = BLUP) certified cable machine operator at [facility] UA PH DIPSTIC POC (test 5 5.0-7.0 N code = PHUP) UA PROTEIN DIPSTICK POC NEGATIVE NEGATIVE (test code = DPROUP) UA UROBILINIOGEN QUAL NORMAL 0.2-1.0 (test code = UROQL) UA NITRITE DIPSTICK POC NEGATIVE Negative (test code = NITUP) UA LEUKOCYTE ESTERASE W Negative NEGATIVE REFLEX (test code = LEUUR) - CT ABD PELVIS W/O [id number] 00:00:00 [facility] 1950 Sex: M Name:KAY MAXWELL FSED : 1950 Age/S: 71 / M [address] [employer] Unit #: [id number] Loc:David Singh [address] Phys: Wilfredo Vallejo MD Acct: [id number] Dis Date: Status: REG ER PHONE #: Exam Date: 03/21/2021 0685 FAX #: Reason: low back pain EXAMS: CPT CODE: [id number] CT ABD PELVIS W/O [id number] PROCEDURE INFORMATION: Exam: CT Abdomen And Pelvis [...] to clinical indication); or iterative reconstruction. COMPARISON: Norelevant prior studies available. FINDINGS: Lungs: Mild bilateral basilar subsegmental atelectasis and scarring. Heart: Heart size at the upper limits of normal. Liver: Normal size and attenuation without focal lesion. Gallbladder and bile ducts: Contracted gallbladder containing calcified gallstones without inflammation or biliary dilatation. Pancreas: Normal. No ductal dilation. Spleen: Normal sizeand attenuation without focal lesion. Adrenal glands: Normal. No mass. Kidneys and ureters: Normal size nonenhanced kidneys associated with mild nonspecific perinephric stranding. No urolithiasis, hydronephrosis, or suspicious lesion. Stomach and bowel: Underdistended appropriately thickwalled stomach. Nonobstructive bowel gas pattern. Ydzp-lf-ryznreiy diverticulosis greatest in the thick-walled sigmoid colon [...] : 1950 Age/S: 71 / M [address] [employer] Unit #: [id number] Loc: David Singh [address] Phys: Wilfredo Vallejo MD Acct: [id number] Dis Date: Status: REG ER PHONE #: Exam Date: 03/21/2021 0605 FAX #: Reason: low back pain EXAMS: CPT CODE: [id number] CT ABD PELVIS W/O CONT 97062 (Continued) arthrosis greatest in the mid and lower lumbar spine. No acute fracture or dislocation. Soft tissues: No significant abnormality. IMPRESSION: 1. Acrj-vo-shbbdcai diverticulosis greatest in the thick-walled sigmoid colon [...] nodes without lymph node enlargement or mass. [id number] Reported and signed by: Hipolito Patten M.D. CC: Wilfredo Vallejo MD Technologist:Romario Bhakta, RT(R)(CT) CTDI: DLP: Trnscb Date/Time: 03/21/2021 (06) [email or web address] Orig Print D/T: S: 03/21/2021 (0659) PAGE 2 Signed Report Notes Date/Time Note Provider Source 2021-03-21 03:01:00-00:00 [facility] EMERGENCY PROVIDER REPORT REPORT#:[id number] REPORT STATUS: Signed DATE:03/21/21 TIME: 0301 PATIENT: KAY MAXWELL UNIT #: [id number] ROOM/BED: AGE: 71 SEX: M PCP PHYS: Mil Powell MD SERVICE AUTHOR: Wilfredo Vallejo MD * ALL edits or amendments must be made on the [employer]/computer document * HPI-Back Pain 40 and Over General Initial Greet Date/Time 03/21/21 0301 Presentation Chief Complaint Pain, back Sudden in Onset? No Free Text HPI Notes Free Text HPI Notes 71-year-old male, with complaint of 3 we eks of nontraumatic lumbar pain rating to the right hip and leg. Worse with walking. No fever. No bowel or bladder complaints. Patient called EMS at 2 AM because h e could not sleep. He says that his doctor has been giving him 5 mg hydroco done's but the pain is not relieved any longer. I examination he is neurolo gically intact. He said he already had x-rays which did not show an ything by his doctor and he is waiting to see a specialist. He does have a old healed incision of the lumbar area and says he had asked spine surgery many yea rs ago but unsure exactly why. He says he thinks he had a bulging disc. The patient was taken to CT but then when he was laying down the CT table he refused to undergo the scan and said that it was hurting him to lay down. The durable medical equipment technician tried to get him on his side and on his abdomen but the patient continued to refuse CT s o he was brought back to the room. Patient was given Toradol and Tylenol for pain and he actually refused the Tylenol. Risk-Back Pain 40 and Over Risk Stratification )( Abdominal Aortic Aneurysm Risk factors review ed, Hypertension, Patient refused CT )( Thoracic Aortic Dissection Risk factors revie wed Review of Systems Basic Review of Systems Basic ROS EYES: No redness, ENT: No sore throat, SKIN: No rash, PSYCH: NL thought content Focused Review of Systems Respiratory Denies: Cough, non-productive, Cough, productive , Dyspnea on exertion, Hemoptysis, Parox nocturnal dyspnea, Pleuritic p ain, Shortness of breath, Wheezing. GI Denies: Abdominal pain, Anorexia, Belching, Bloo dy/tarry stool, Constipation, Diarrhea, Dysphagia, Hematemesis, Hemato chezia, Mucousy stool, Melena, Nausea, Rectal pain, Vomiting. Musculoskeletal Reports: Back pain. Neurologic Denies: Abnormal movement, Bladder dysfu nction, Bowel dysfunction, Change LOC, Confusion, Dizziness, Focal weakness, Generalize d weakness, Headache, Lightheaded, Numbness, Problem walking, Seizure, Shaking, Slurred speech, Spinning sensation, Syncope, Tingling, Unable to speak, Vision change. Past Medical History - Adult Stated Complaint LOW BACK PAIN Allergies Coded Allergies: metformin (Intermediate, RASH 03/21/21) Penicillins (RASH 09/09/14) Home Medications Active Scripts HYDROcodone/APAP (NORCO 5/325) 1 TAB PO Q4H PRN PRN PAIN SCALE 1-5 HYDROcodone/APAP (NORCO 5/325) 1 TAB PO Q4H PRN PRN PAIN SCALE 1-5 #40 Prov: 09/13/14 ATORVASTATIN (LIPITOR) 10 MG PO QPM@2100 LISINOPRIL (ZESTRIL) 10 MG PO BID amLODIPine (NORVASC) 10 MG PO DAILY POLYETHYLENE GLYCOL 3350 (MIRALAX) 17 GM PO JAI Y Reported Medications ASPIRIN 325 MG PO DAILY FAMOTIDINE (PEPCID) 20 MG PO DAILY OXYMETAZOLINE (AFRIN 0.05% NASAL) 2 SPRAY NASAL Q12H MAG CARB/AL HYDROX (GAVISCON 358-95 MG/15ML) 15 ML PO QID PRN PRN INDIGESTION CALAMINE/ZINC OXIDE (CALAMINE 8%-8%) 1 APPLIC TO PICAL ASDIR Past Medical History: Reports: Hypertension. Physical Exam Vital Signs Vital Signs First Documented: Result Date Time Pulse Ox 97 03/21 335 B/P 211/86 03/21 335 B/P Mean 127 03/21 335 O2 Delivery Room air 03/21 335 Temp 37.2 03/21 335 Pulse 61 03/21 335 Resp 18 03/21 335 Last Documented: Result Date Time Pulse Ox 97 03/21 700 B/P 165/65 03/21 700 B/P Mean 98 03/21 700 O2 Delivery Room air 03/21 700 Temp 36.7 03/21 700 Pulse 65 03/21 07 Resp 20 03/21 700 Review of Vital Signs Reviewed Basic Physical Exam Basic PE HEAD: Atraumatic/NC, EYES: PERRL, conj clear, ENT: Membranes moist, NECK: Supple, EXT: No gross abnormality, SKIN: No rashes, warm/dry, NEURO: alert oriented, NEURO: gross movement NL, PSYCH: NL t hought content Focused PE General/Const General/Const Awake, Alert, No acute di stress, Well appearing, Well developed , Well hydrated, Well nourished, Cooperative, No t toxic appearing Abdomen/GI Abdomen/GI Atraumatic, Soft, Non-tender, McBurn ey's non-tender, No guarding, No rebound, BS normoactive, No distention, No he rnia, No palpable mass, No pulsatile mass Neurologic Neurologic Oriented X3, Speech NL, No m otor deficits, No sensory deficits, CN II - XII intact, Reflexes equal bilat, Cerebella r NL, Memory NL, Gait NL Interpretation Diagnostics Lab Results Interpretation Results Laboratory Tests: 03/21 0348 Urines POC Urine pH (5.0 - 7.0) 5 Ur Specific Crane (1.005 - 1.030) 1.010 POC Urine Protein (NEGATIVE) NEGATIVE POC Ur Glucose (UA) (NEGATIVE) NEGATIVE POC Urine Ketones (NEGATIVE) 1+ H POC Urine Blood (NEGATIVE) NEGATIVE POC Urine Nitrite (Negative) NEGATIVE Urine Bilirubin (NEGATIVE) NEGATIVE POC Urine Urobilinogen (0.2 - 1.0) NORMAL POC U Leukocyte Esteras (NEGATIVE) Negative Recent Impressions: CAT SCAN - CT ABD PELVIS W/O CONT 03/21 0633 Report Impression - Status: SIGNED Entered: 03/21/2021 0659 IMPRESSION: 1. Jfnk-tl-qukmsiex diverticulosis greatest in t he thick-walled sigmoid colon consistent with chronic changes of diverticulosis. 2. Mildly enlarged prostate and seminal vesicles should be correlated clinically. 3. Mildly dilated urinary bladder suggesting uri nary retention or bladder outlet obstruction. 4. Contracted gallbladder containing calcified g allstones without inflammation or biliary dilatation. 5. Heart size at the upper limits of normal. 6. Numerous small nonspecific central mesenteric and retroperitoneal lymph nodes without lymph node e nlargement or mass. Impression By: [email or web address] - Hipolito Patten M.D. Lab Statement Laboratory studies reviewed and considered in e medical decision-making. Imaging Statement Radiographic studies reviewed and considered in the medical decision-making. Re-Evaluation MDM ED Course Medication(s) Ordered Medication(s) Ordered: Cardiovascular Drugs Sig/Reinaldo Start time Last Medication Dose Route Stop Time Status Admin Clonidine HCl 0.1 MG X1ED STA 03/21 0357 DC 10/ 15 PO 03/21 0358 0401 Central Nervous System Agents Sig/Reinaldo Start time Last Medication Dose Route Stop Time Status Admin Haloperidol Lactate 5 MG X1ED STA 03/21 0534 DC 10/ IM 03/21 0535 0539 Acetaminophen 1,000 MG X1ED STA 03/21 0304 DC PO 03/21 0305 Ketorolac 30 MG X1ED STA 03/21 0304 DC 10 Tromethamine IM 03/21 0305 0312 Local Anesthetics (Parenteral) Sig/Reinaldo Start time Last Medication Dose Route Stop Time Status Admin Lidocaine 1 PATCH X1ED STA 03/21 0423 DC 03/21 TOPICAL 03/21 0424 0429 Patient Discharge Departure Vital Signs/Condition Vital Signs First Documented: Result Date Time Pulse Ox 97 03/21 0335 B/P 211/86 03/21 0335 B/P Mean 127 03/21 0335 O2 Delivery Room air 03/21 0335 Temp 37.2 03/21 0335 Pulse 61 03/21 0335 Resp 18 03/21 0335 Last Documented: Result Date Time Pulse Ox 97 03/21 0700 B/P 165/65 03/21 0700 B/P Mean 98 03/21 0700 O2 Delivery Room air 03/21 0700 Temp 36.7 03/21 0700 Pulse 65 03/21 0700 Resp 20 03/21 0700 All vital signs available at the time of this en try have been reviewed. Condition Stable Clinical Impression Clinical Impression Primary Impression: Back pain Disposition Decision Discharge )( Discharged to Home Yes )( Time 0708 )( Date 03/21/21 Discharge/Care Plan (Auto) Prescriptions Current Visit Scripts GABAPENTIN (NEURONTIN) 100 MG PO TID GABAPENTIN (NEURONTIN) 100 MG PO TID #30 CAPS traMADol/APAP (ULTRACET 37.5/325 MG) 1 TAB PO Q4 H PRN PRN ACUTE PAIN traMADol/APAP (ULTRACET 37.5/325 MG) 1 TAB PO Q 4H PRN PRN ACUTE PAIN #15 TABS at 1451 RPT #:[id number] END OF REPORT"
[2022-11-19] MEDS ORDERED: LIDOCAINE 1% MPF 5 ML VIAL ONE (01:20)
[2022-11-19 01:26] LABS: Absolute Lymphocytes (CBC) 1.5 K/uL (0.7-4.9); Lymphocytes % 15.6 % (15.3-44.8); MCV 93.8 fL (80-100); MPV 7.8 fL (7.6-11.3); RBC Red Blood Cell Count 4.48 M/uL (4.33-5.43)
[2022-11-19 01:39] LABS: Albumin 3.5 g/dL (3.4-5.0); Bilirubin Direct 0.1 mg/dL (0-0.2); Bilirubin Indirect, Calculated 0.3 mg/dL (0.2-0.8); Bilirubin Total 0.4 mg/dL (0.2-1.0); Magnesium 1.9 mg/dL (1.6-2.4); Potassium 3.5 mEq/L (3.5-5.1); Protein, Total 6.7 g/dL (6.4-8.2); Troponin High Sensitivity 7.8 pg/mL (<58.9)
--- NOTE | 2022-11-19 02:50 | EDPHYS ---
Physician Documentation [facility] Name: Ford Cardenas Age: 72 yrs Sex: Male : 1950 Arrival Date: 11/19/2022 Time: 00:49 Bed 16 Private MD: ED Physician Bobo De Dios HPI: 11/19 01:43 This 72 yrs old Male presents to ER via EMS with complaints of Syncope, head injury. rt 01:43 Patient presents to the ED following a syncopal event with head injury. Patient states rt that he was walking, when he became acutely dizzy described as the room was spinning. Patient states that he immediately lost consciousness at that time, he woke up on the ground near shattered glass. Patient apparently fell and hit his head on the glass door of an event which did shatter it. He does reportedly have lacerations to the back right side of the head. He also complains of pain to the right knee. He is no longer dizzy, never had chest pain. Denies other acute complaints at this time. Symptoms are moderate in severity, no other aggravating or alleviating factors.. Historical: - Allergies: 00:54 Iodine; rv 00:54 PENICILLINS; rv - PMHx: 00:54 Hypertensive disorder; Cerebrovascular accident; Diabetes mellitus; rv - Immunization history:: Adult Immunizations up to date, Last tetanus immunization: up to date < 5 years ago. - Social history:: Smoking status: Patient reports the use of cigarette tobacco products, smokes one pack cigarettes per day. - Family history:: not pertinent. ROS: 01:43 Constitutional: Negative for fever, chills, and weight loss, Neck: Negative for injury, rt pain, and swelling, Cardiovascular: Negative for chest pain, palpitations, and edema, Respiratory: Negative for shortness of breath, cough, wheezing, and pleuritic chest pain, Abdomen/GI: Negative for abdominal pain, nausea, vomiting, diarrhea, and constipation, Skin: Negative for injury, rash, and discoloration, Psych: Negative for depression, anxiety, suicide ideation, homicidal ideation, and hallucinations. 01:43 MS/extremity: Positive for pain, Negative for laceration. 01:43 Neuro: Positive for dizziness, syncope. Exam: 01:43 Constitutional: This is a well developed, well nourished patient who is awake, alert, rt and in no acute distress. Chest/axilla: Normal chest wall appearance and motion. Nontender with no deformity. No lesions are appreciated. Cardiovascular: Regular rate and rhythm with a normal S1 and S2. No gallops, murmurs, or rubs. Normal PMI, no JVD. No pulse deficits. Respiratory: Lungs have equal breath sounds bilaterally, clear to auscultation and percussion. No rales, rhonchi or wheezes noted. No increased work of breathing, no retractions or nasal flaring. Abdomen/GI: Soft, non-tender, with normal bowel sounds. No distension or tympany. No guarding or rebound. No evidence of tenderness throughout. Back: No spinal tenderness. No costovertebral tenderness. Full range of motion. MS/ Extremity: Pulses equal, no cyanosis. Neurovascular intact. Full, normal range of motion. Neuro: Awake and alert, GCS 15, oriented to person, place, time, and situation. Cranial nerves II-XII grossly intact. Motor strength 5/5 in all extremities. Sensory grossly intact. Cerebellar exam normal. Normal gait. Psych: Awake, alert, with orientation to person, place and time. Behavior, mood, and affect are within normal limits. 01:43 Head/face: Headache,Multiple abrasions to the back 1 laceration to the parietal region measuring about 2 cm, another laceration more laterally and superiorly with minimal bleeding is also about 2 cm. No obvious foreign bodies identified. No other external evidence of trauma. 01:43 Neck: No posterior cervical midline tenderness. 01:50 ECG was reviewed by the Attending Physician. rt Vital Signs: 00:51 BP 153 / 68; Pulse 61; Resp 17; Temp 98; Pulse Ox 98% ; Weight 69.5 kg; Height 6 ft. 1 rv in. ; 02:44 BP 146 / 58; Pulse 55; Resp 16; Pulse Ox 96% on R/A; rv 00:51 Body Mass Index 20.21 (69.50 kg, 185.42 cm) rv [place] Coma Score: 02:44 Eye Response: spontaneous(4). Motor Response: obeys commands(6). Verbal Response: rv oriented(5). Total: 15. Laceration: 02:50 Wound Repair of 2cm ( 0.8in ) subcutaneous laceration to scalp. Linear shaped.. Distal rt neuro/vascular/tendon intact. Anesthesia: Wound infiltrated with 1 mls of 1% lidocaine. Wound prep: Copious irrigation. Skin closed with 2 [place] using staple gun. Patient tolerated well. 02:50 Wound Repair of 1cm ( 0.4in ) subcutaneous laceration to scalp. Linear shaped.. Distal rt neuro/vascular/tendon intact. Anesthesia: Wound infiltrated with 1 mls of 1% lidocaine. Skin closed with 1 [place] using staple gun. Patient tolerated well. MDM: 00:52 Patient medically screened. rt 02:50 Differential Diagnosis: cardiac arrhythmia, cerebrovascular accident, idiopathic rt syncope, vasovagal episode. Data reviewed: vital signs, nurses notes, lab test result(s), EKG, radiologic studies. Consideration of Admission/Observation Patient was admitted/placed on observation. Management of patient was discussed with the following: Hospitalist: Agrees to admit. I considered the following discharge prescriptions or medication management in the emergency department Medications were administered in the Emergency Department. See MAR. Independent interpretation of the following test(s) in the Emergency Department CT Scan: My interpretation is No hemorrhage seen on interpretation of the CT scan image. Care significantly affected by the following chronic conditions: Diabetes, Hypertension. Counseling: I had a detailed discussion with the patient and/or guardian regarding: the historical points, exam findings, and any diagnostic results supporting the discharge/admit diagnosis, lab results, radiology results, the need for further work-up and treatment in the hospital. Response to treatment: the patient's symptoms have markedly improved after treatment. 11/19 01:04 Order name: Basic Metabolic Panel; Complete Time: 01:39 rt 11/19 01:04 Order name: CBC with Diff; Complete Time: :39 rt 11/19 01:04 Order name: LFT's; Complete Time: :39 rt 11/19 01:04 Order name: Magnesium; Complete Time: :39 rt 11/19 01:04 Order name: Troponin HS; Complete Time: :39 rt 11/19 01:04 Order name: XRAY Chest (1 view) rt 11/19 01:04 Order name: CT Head C Spine rt 11/19 01:04 Order name: Knee Left 2 View XRAY rt 11/19 01:04 Order name: EKG; Complete Time: 01:05 rt 11/19 01:04 Order name: Cardiac monitoring; Complete Time: 01: rt 11/19 01:04 Order name: EKG - Nurse/Tech; Complete Time: : rt 11/19 01:04 Order name: IV Saline Lock; Complete Time: rt 11/19 01:04 Order name: Labs collected and sent; Complete Time: : rt 11/19 01:04 Order name: O2 Per Protocol; Complete Time: : rt 11/19 01:04 Order name: O2 Sat Monitoring; Complete Time: rt 11/19 01:04 Order name: Wound Care; Complete Time: : rt EC:50 Rate is 60 beats/min. Rhythm is regular, 1st Degree Block with Occasional PVCs. QRS rt [place] is Normal. SC interval is normal. QRS interval is normal. QT interval is normal. No Q waves. Clinical impression: NSR w/ Non-specific ST/T Changes. Interpreted by me. Administered Medications: 03:03 Drug: Lidocaine Infiltration (1 %) 5 ml {Note: administered by Dr De Dios.} Volume: rv 5 ml; Route: Infiltration; 03:31 Follow up: Response: No adverse reaction rv 03:39 Drug: Ketorolac IVP 15 mg Route: IVP; Site: left forearm; rv 03:43 Follow up: Response: Medication administered at discharge. rv Disposition Summary: 11/19/22 02:49 Hospitalization Ordered Hospitalization Status: Observation rt Provider: Chad Moya rt Location: Telemetry/MedSurg (observation) rt Condition: Stable rt Problem: new rt Symptoms: have improved rt Bed/Room Type: Standard rt Room Assignment: 409(11/19/22 03:25) cg Diagnosis - Syncope rt - Scalp laceration rt Forms: - Medication Reconciliation Form rt - SBAR form rt Signatures: Dispatcher [employer] Arlene Luong RN RN cg Jw Pizano RN RN rv Nell Rodriguez PA-C PA-C sb4 [place], Ryan, MD MD rt Corrections: (The following items were deleted from the chart) 03:25 02:49 rt cg
--- NOTE | 2022-11-19 02:50 | ER ---
Nurse's Notes [facility] Name: Ford Cardenas Age: 72 yrs Sex: Male : 1950 Arrival Date: 11/19/2022 Time: 00:49 Bed 16 Private MD: Diagnosis: Syncope;Scalp laceration Presentation: 11/19 00:51 Chief complaint: EMS states: pt fell tonight after eating dinner. stood up and felt rv dizzy. + LOC, hit the back of the head. Coronavirus screen: Vaccine status: Patient reports receiving the 2nd dose of the covid vaccine. Ebola Screen: Patient negative for fever greater than or equal to 101.5 degrees Fahrenheit, and additional compatible Ebola Virus Disease symptoms Patient denies exposure to infectious person. Patient denies travel to an Ebola-affected area in the 21 days before illness onset. Initial Sepsis Screen: Does the patient meet any 2 criteria? No. Patient's initial sepsis screen is negative. Does the patient have a suspected source of infection? No. Patient's initial sepsis screen is negative. Risk Assessment: Do you want to hurt yourself or someone else? Patient reports no desire to harm self or others. Onset of symptoms was November 19, 2022. 00:51 Method Of Arrival: EMS: [facility] 00:51 Acuity: KAYLA 2 rv Triage Assessment: 00:54 General: Appears comfortable, Behavior is calm, cooperative. Pain: Complains of pain in rv scalp, right scapular area and right gluteus travis. Neuro: Level of Consciousness is awake, alert, obeys commands, Oriented to person, place, time, situation, Reports dizziness, a syncopal episode. Cardiovascular: Capillary refill < 3 seconds. Respiratory: Airway is patent Respiratory effort is even, unlabored. GI: No signs and/or symptoms were reported involving the gastrointestinal system. : No signs and/or symptoms were reported regarding the genitourinary system. Musculoskeletal: Circulation, motion, and sensation intact. Range of motion: intact in all extremities. Historical: - Allergies: 00:54 Iodine; rv 00:54 PENICILLINS; rv - PMHx: 00:54 Hypertensive disorder; Cerebrovascular accident; Diabetes mellitus; rv - Immunization history:: Adult Immunizations up to date, Last tetanus immunization: up to date < 5 years ago. - Social history:: Smoking status: Patient reports the use of cigarette tobacco products, smokes one pack cigarettes per day. - Family history:: not pertinent. Screenin:57 [facility] ED Fall Risk Assessment (Adult) History of falling in the last 3 months, rv including since admission Yes- single mechanical fall (1 pt) Confusion or Disorientation No (0 pts) Intoxicated or Sedated No (0 pts) Impaired Gait No (0 pts) Mobility Assist Device Used No (0 pt) Altered Elimination No (0 pt) Score/Fall Risk Level 3 or more points = High Risk Oriented to surroundings, Maintained a safe environment, Educated pt \T\ family on fall prevention, incl call for assistance when getting out of bed, Assessed \T\ reinforced patient's understanding of fall precautions, Provided non-skid footwear, Hourly rounding (assess needs \T\ fall precautionary measures) done, Used ambulatory aids as needed (educated on \T\ assisted with), Used gait belt as appropriate Implemented a Fall Risk Plan of Care, Apply high fall risk patient identification: yellow non skid footwear/ fall signage, Placed fall mat w/ non beveled edge next to bed, Activated bed/chair alarm, Remained w/in arm's length of patient and in sight while toileting, Offered frequent toileting (1:1 observation), Remained with patient while ambulating, Utilized family, sitter, or virtual relief salesperson as indicated. Abuse screen: Denies threats or abuse. Denies injuries from another. Nutritional screening: No deficits noted. Tuberculosis screening: No symptoms or risk factors identified. Vital Signs: 00:51 BP 153 / 68; Pulse 61; Resp 17; Temp 98; Pulse Ox 98% ; Weight 69.5 kg; Height 6 ft. 1 rv in. ; 02:44 BP 146 / 58; Pulse 55; Resp 16; Pulse Ox 96% on R/A; rv 00:51 Body Mass Index 20.21 (69.50 kg, 185.42 cm) rv [place] Coma Score: 02:44 Eye Response: spontaneous(4). Motor Response: obeys commands(6). Verbal Response: rv oriented(5). Total: 15. ED Course: 00:51 Patient arrived in ED. rv 00:51 Bobo De Dios MD is Attending Physician. rt 00:54 Triage completed. rv 00:57 Arm band placed on right wrist. rv 00:57 Patient has correct armband on for positive identification. Bed in low position. Call rv light in reach. Side rails up X 1. Client placed on continuous cardiac and pulse oximetry monitoring. NIBP monitoring applied. 01:00 Inserted saline lock: 20 gauge in left forearm, using aseptic technique. Blood rv collected. 01:11 Jw Pizano, RN is Primary Nurse. rv 01:25 XRAY Chest (1 view) In Process Unspecified. EDMS 01:25 Knee Left 2 View XRAY In Process Unspecified. EDMS 01:41 CT Head C Spine In Process Unspecified. EDMS 02:48 Chad Moya is Hospitalizing Provider. rt 03:02 Assist provider with laceration repair on scalp that was 2.5 cm. or less using rolanda. rv Set up tray. Performed by Bobo De Dios MD Dressed with 4X4s, Patient tolerated well. 03:31 Patient admitted, IV remains in place. rv Administered Medications: 03:03 Drug: Lidocaine Infiltration (1 %) 5 ml {Note: administered by Dr De Dios.} Volume: rv 5 ml; Route: Infiltration; 03:31 Follow up: Response: No adverse reaction rv 03:39 Drug: Ketorolac IVP 15 mg Route: IVP; Site: left forearm; rv 03:43 Follow up: Response: Medication administered at discharge. rv Medication: 00:57 VIS not applicable for this client. rv Outcome: 02:49 Decision to Hospitalize by Provider. rt 03:29 Admitted to Tele accompanied by tech, via wheelchair, room 409, with chart, Report rv called to [place] 03:29 Condition: good 03:29 Instructed on the need for admit. 03:43 Patient left the ED. rv Signatures: Dispatcher [employer] EDJw Berg RN RN rv Bobo De Dios MD MD rt
--- NOTE | 2022-11-19 03:06 | P.HP ---
Certification for Inpatient Patient admitted to: Observation With expected LOS: <2 Midnights Patient will require the following post-hospital care: None Practitioner: I am a practitioner with admitting privileges, knowledge of patient current condition, hospital course, and medical plan of care. Services: Services provided to patient in accordance with Admission requirements found in Title 42 Section 412.3 of the Code of Federal Regulations Patient History Date of Service: 11/19/22 Primary Care Provider: Rodo Vogel Reason for admission: Syncope History of Present Illness: Mr. Cardenas is a 72 year old male with past medical history of CVA, hypertension, hyperlipidemia, and non-insulin dependent type 2 diabetes who presented to the emergency department via EMS after a syncopal episode. Patient states that he stood up after eating dinner, felt dizzy, and syncopized, hitting his head and losing consciousness. He hit his head on his stove hard enough to shatter the glass. He had a few head lacerations that were stapled in the ED. He denies any prior recent syncopal episodes. Head CT was negative. EKG showed first degree bl ock with occasional PVCs. No significant lab abnormalities. Vital signs have been stable. ED provider wishes to admit patient for observation. Allergies iodine Allergy (Verified 01/26/22 10:40) Hives/Rash Penicillins Allergy (Verified 01/26/22 10:40) Hives/Rash Home medications list reviewed: Yes Home Medications: Amlodipine [Norvasc*] 1 tab PO DAILY 01/26/22 Baclofen 1 tab PO DAILY 01/26/22 Clopidogrel Bisulfate [Plavix] 1 tab PO DAILY 01/26/22 Famotidine 1 tab PO BID 01/26/22 Gabapentin 1 cap PO TID 01/26/22 Montelukast [Singulair*] 1 tab PO DAILY 01/26/22 Oxymetazoline HCl [Afrin] 2 spray IN PRN PRN 01/26/22 lisinopriL [Lisinopril] 1 tab PO BID 01/26/22 Atorvastatin Calcium [Lipitor] 40 mg PO BEDTIME #30 tab 01/27/22 Metformin HCl 500 mg PO BID #60 tab 01/27/22 glyBURIDE [Glyburide] 2.5 mg PO BID #60 tab 01/27/22 - Past Medical/Surgical History Diabetic: Yes -: HTN -: HLD -: CVA ~2014 -: NIDDM2 -: Back surgery Psychosocial/ Personal History: Patient lives at home alone. - Family History Family History: Reviewed- Non-Contributory - Social History Smoking Status: Current every day smoker Alcohol use: No CD- Drugs: No Caffeine use: Yes Place of Residence: Home Review of Systems Neurological: Other (dizziness, syncope) Physical Examination - Vital Signs Temperature: 98 F Blood Pressure: 146/58 Pulse: 55 Respirations: 16 Pulse Ox (%): 96 - Physical Exam General: Alert, In no apparent distress HEENT: Atraumatic, EOMI, Sclerae nonicteric Neck: Supple, 2+ carotid pulse no bruit Respiratory: Clear to auscultation bilaterally, Normal air movement Cardiovascular: Regular rate/rhythm, Normal S1 S2 Gastrointestinal: Normal bowel sounds, No tenderness Musculoskeletal: No tenderness Integumentary: No rashes Neurological: Normal speech, Normal affect - Studies Laboratory Data (last 24 hrs) 11/19/22 01:10: WBC 9.30, Hgb 13.9, Hct 42.0, Plt Count 164 11/19/22 01:10: Sodium 139, Potassium 3.5, BUN 15, Creatinine 0.93, Glucose 163 H, Magnesium 1.9, Total Bilirubin 0.4, AST 24, ALT 34, Alkaline Phosphatase 74 Assessment and Plan - Problems (Diagnosis) (1) Syncope Current Visit: Yes Status: Acute Qualifiers: Syncope type: unspecified Qualified Code(s): R55 - Syncope and collapse (2) Type 2 diabetes mellitus Current Visit: Yes Status: Chronic Qualifiers: Diabetes mellitus intermodal truck driver insulin use: without intermodal truck driver use Diabetes mellitus complication status: with hyperglycemia Qualified Code(s): E11.65 - Type 2 diabetes mellitus with hyperglycemia (3) Hypertension Current Visit: Yes Status: Chronic Qualifiers: Hypertension type: primary hypertension Qualified Code(s): I10 - Essential (primary) hypertension (4) Hyperlipidemia Current Visit: Yes Status: Chronic Qualifiers: Hyperlipidemia type: unspecified Qualified Code(s): E78.5 - Hyperlipidemia, unspecified (5) Tobacco abuse Current Visit: Yes Status: Chronic - Plan Patient is admitted for observation for syncope. Obtain carotid US, echocardiogram, and orthostatic vitals. Physical therapy consulted. Monitor on telemetry. Check lipid panel, A1c, trend troponin. Smoking cessation advised. Nicoderm patch provided. Monitor and replete electrolytes per protocol. Reconcile and continue home medications. Lovenox for VTE prophylaxis. Full code. Discharge Plan: Home Plan to discharge in: 24 Hours - Advance Directives Does patient have a Living Will: No Does patient have a Durable POA for Healthcare: No - Code Status/Comfort Care Code Status Assessed: Yes Code Status: Full Code Physician Review: Patient Assessed, Agree with Above Assessment and Plan Critical Care: No Time Spent Managing Pts Care (In Minutes): 50
[2022-11-19] MEDS ORDERED: KETOROLAC 30 MG/ML INJ ONE (03:44)
[2022-11-19 03:59] VITALS: O2SAT 96
[2022-11-19] MEDS ORDERED: ACETAMINOPHEN 500 MG TAB PO PRN (04:18)
[2022-11-19] MEDS ORDERED: NA CHLORIDE 0.9% 1,000 ML IV SCH (04:18)
[2022-11-19] MEDS ORDERED: ONDANSETRON 4 MG/2 ML VIAL IV PRN (04:18)
[2022-11-19 04:58] VITALS: BMI 20.2
--- NOTE | 2022-11-19 07:20 | EKG ---
Test Date: 2022-11-19 Test Time: 01:20:47 Natural Resource Officer: BETHANY MEASUREMENT RESULTS: Intervals: Rate: 60 NV: 224 QRSD: 96 QT: 426 QTc: 426 [place]: P: 42 NV: 224 QRS: 18 T: 84 INTERPRETIVE STATEMENTS: Sinus rhythm with 1st degree AV block with occasional premature ventricular complexes Otherwise normal ECG Compared to ECG 01/26/2022 08:25:56 Ventricular premature complex(es) now present First degree AV block now present T-wave abnormality no longer present Electronically Signed On 11-19-22 07:19:48 CDT by Jose Flowers
[2022-11-19] MEDS: INSULIN -REGULAR HUMAN 50 UNIT/0.5 ML ML SQ SCH ×3 (07:30→16:30)
[2022-11-19] MEDS ORDERED: POTASSIUM 25 MEQ EFFERV TAB PO ONE (08:16)
--- NOTE | 2022-11-19 08:19 | RAD REPORT ---
EXAM DESCRIPTION: US - CP - 11/19/2022 5:10 am CLINICAL HISTORY: syncope COMPARISON: Head C Spine Mpr Wo Con dated 11/19/2022 TECHNIQUE: Real-time sonographic grayscale, color duplex, and spectral wave Doppler evaluation of veda carotid systems was performed. FINDINGS: Normal high resistance waveforms are noted in both external carotid arteries. The common c arotid arteries and internal carotid arteries show normal low resistance waveforms. Mild calcific plaque seen along the right carotid bulb and proximal left ICA, smooth and right and ir regular on the left. Peak systolic velocity less than 125 cm/ sec bilaterally. ICA/CCA peak systolic ratios less than 2.0 bilaterally. Antegrade flow seen in both vertebral arteries. IMPRESSION: Mild atherosclerotic changes noted bilaterally. Less than 50% stenosis of the ICAs bilaterally. Vertebral arteries are patent bilaterally. Evaluation of carotid artery stenosis, if any, is reported based on consensus recommendations of the Society of Radiologists in Ultrasound (Pilo et al., Radiology, 2003)
[2022-11-19] MEDS ORDERED: NICOTINE 21 MG/PAT TD SCH (09:00)
[2022-11-19] MEDS ORDERED: ENOXAPARIN 40 MG/0.4 ML SQ SCH (09:00)
[2022-11-19 09:09] LABS: Troponin High Sensitivity 11.3 pg/mL (<58.9)
[2022-11-19] MEDS ORDERED: AMLODIPINE 10 MG TAB PO SCH (16:21)
[2022-11-19] MEDS ORDERED: CLOPIDOGREL 75 MG TABLET PO SCH (16:21)
[2022-11-19] MEDS ORDERED: MONTELUKAST 10 MG TAB PO SCH (16:22)
[2022-11-19 16:34] VITALS: BP 164/74; TEMP 98.5
--- NOTE | 2022-11-19 17:34 | P.DS ---
Admission Date: 11/19/22 Discharge Date: 11/19/22 Primary Care Provider: Rodo Vogel Disposition: ROUTINE DISCHARGE Discharge Condition: FAIR Reason for Admission: Syncope - Problems (1) Syncope Status: Acute Qualifiers: Syncope type: unspecified Qualified Code(s): R55 - Syncope and collapse (2) Sinus bradycardia Status: Acute (3) Hyperlipidemia Status: Chronic Qualifiers: Hyperlipidemia type: unspecified Qualified Code(s): E78.5 - Hyperlipidemia, unspecified (4) Hypertension Status: Chronic Qualifiers: Hypertension type: primary hypertension Qualified Code(s): I10 - Essential (primary) hypertension (5) Type 2 diabetes mellitus Status: Chronic Qualifiers: Diabetes mellitus termite inspector insulin use: without fci use Diabetes mellitus complication status: with hyperglycemia Qualified Code(s): E11.65 - Type 2 diabetes mellitus with hyperglycemia Brief History of Present Illness: Mr. Cardenas is a 72 year old male with past medical history of CVA, hypertension, hyperlipidemia, and non-insulin dependent type 2 diabetes who presented to the emergency department via EMS after a syncopal episode. Patient states that he stood up after eating dinner, felt dizzy, and syncopized, hitting his head and losing consciousness. He hit his head on his stove hard enough to shatter the glass. He had a few head lacerations that were stapled in the ED. He denied any prior recent syncopal episodes. Head CT was negative. EKG showed first degree block with occasional PVCs. No significant lab abnormalities. Vital signs stable. Patient was hospitalized for further management. Hospital Course: Troponin x2 came back negative. crown presser showed sinus bradycardia. Patient was asymptomatic during the hospital stay. He was ambulatory without assistance, denied any dizziness with change in posture. Carotid Doppler done was unremarkable and showed no significant stenosis. Echocardiogram also un remarkable. No hypoglycemia. Patient's symptoms likely related to postprandial syncope. Orthostatic precautions was discussed. He was given his home antihypertensives for elevated blood pressure. Patient is discharged with no medication changes. Vital Signs/Physical Exam: Temp Pulse Resp BP Pulse Ox 98.5 F 54 18 164/74 H 98 11/19/22 16:00 11/19/22 17:01 11/19/22 16:00 11/19/22 17:01 11/19/22 16:00 General: Alert, In no apparent distress, Oriented x3 HEENT: Mucous membr. moist/pink Neck: JVD not distended Respiratory: Clear to auscultation bilaterally, Normal air movement Cardiovascular: Regular rate/rhythm, Normal S1 S2 Gastrointestinal: Normal bowel sounds, Soft and benign, Non-distended, No tenderness Musculoskeletal: No swelling, No tenderness Integumentary: No rashes Neurological: Normal strength at 5/5 x4 extr Laboratory Data at Discharge: WBC 9.30 thou/uL (4.3-10.9) 11/19/22 01:10 Hgb 13.9 g/dL (13.6-17.9) 11/19/22 01:10 Hct 42.0 % (39.6-49.0) 11/19/22 01:10 Plt Count 164 thou/uL (152-406) 11/19/22 01:10 Sodium 139 mEq/L (136-145) 11/19/22 01:10 Potassium 3.5 mEq/L (3.5-5.1) 11/19/22 01:10 BUN 15 mg/dL (7-18) 11/19/22 01:10 Creatinine 0.93 mg/dL (0.70-1.30) 11/19/22 01:10 Glucose 163 mg/dL (74-106) H 11/19/22 01:10 Magnesium 1.9 mg/dL (1.6-2.4) 11/19/22 01:10 Total Bilirubin 0.4 mg/dL (0.2-1.0) 11/19/22 01:10 AST 24 U/L (15-37) 11/19/22 01:10 ALT 34 U/L (16-61) 11/19/22 01:10 Alkaline Phosphatase 74 U/L (45-117) 11/19/22 01:10 Triglycerides 242 mg/dL (<150) H 11/19/22 07:15 Cholesterol 134 mg/dL (<200) 11/19/22 07:15 HDL Cholesterol 35 mg/dL (40-60) L 11/19/22 07:15 Cholesterol/HDL Ratio 3.83 11/19/22 07:15 Home Medications: Amlodipine [Norvasc*] 1 tab PO DAILY 01/26/22 Baclofen 1 tab PO DAILY 01/26/22 Clopidogrel Bisulfate [Plavix] 1 tab PO DAILY 01/26/22 Famotidine 1 tab PO BID 01/26/22 Gabapentin 1 cap PO TID 01/26/22 Montelukast [Singulair*] 1 tab PO DAILY 01/26/22 lisinopriL [Lisinopril] 1 tab PO BID 01/26/22 glyBURIDE [Glyburide] 2.5 mg PO BID #60 tab 01/27/22 Atorvastatin Calcium [Lipitor] 20 mg PO BEDTIME 11/19/22 Fenofibrate [Tricor] 48 mg PO DAILY #30 tab 11/19/22 New Medications: Fenofibrate [Tricor] 48 mg PO DAILY #30 tab Diet: ADA Activity: Fall precautions Followup: Unknown,U [Primary Care Provider] - 1-2 Weeks Time spent managing pt's care (in minutes): 28
--- NOTE | 2022-11-19 19:27 | RAD REPORT ---
EXAM DESCRIPTION: RAD - Chest Single View - 11/19/2022 1:23 am CLINICAL HISTORY: The patient is 72 years old and is Male; syncope TECHNIQUE: Frontal view of the chest. COMPARISON: No relevant prior studies available. FINDINGS: LUNGS: Large calcified granuloma within the left upper lobe is present. The lungs are ot herwise well-inflated and clear. PLEURAL SPACE: Unremarkable. No pneumothorax. HEART: Unremarkable. No cardiomegaly. MEDIASTINUM: Unremarkable. BONES/JOINTS: Multilevel degenerative change of the spine is present. VASCULATURE: Atherosclerosis of the aorta is present. UPPER ABDOMEN: Unremarkable as visualized. IMPRESSION: No acute cardiopulmonary process. Electronically signed by: Lizette Early MD 11/19/2022 1:46 AM CDT Due to temporary technical issues with the PACS/Fluency reporting system, reports are being signed by the in house radiologists without review as a courtesy to insure prompt reporting. The interpreting radiologist is fully responsible for the content of the report.
--- NOTE | 2022-11-19 19:28 | RAD REPORT ---
EXAM DESCRIPTION: RAD - Knee Left 2 View - 11/19/2022 1:23 am CLINICAL HISTORY: The patient is 72 years old and is Male; PAIN TECHNIQUE: Frontal and/or lateral views of the left knee. COMPARISON: No relevant prior studies available. FINDINGS: BONES/JOINTS: Tricompartmental joint space narrowing is present. Postoperative change of the distal femoral diaphysis is present. There is no joint effusion. No acute fracture. No d islocation. SOFT TISSUES: Calcifications are present within the soft tissues. IMPRESSION: No acute findings in the left knee. Electronically signed by: Lizette Early MD 11/19/2022 1:48 AM CDT Due to temporary technical issues with the PACS/Fluency reporting system, reports are being signed by the in house radiologists without review as a courtesy to insure prompt reporting. The interpreting radiologist is fully responsible for the content of the report.
--- NOTE | 2022-11-19 19:40 | RAD REPORT ---
EXAM DESCRIPTION: CT - Head C Spine Mpr Wo Con - 11/19/2022 3:43 am CLINICAL HISTORY: The patient is 72 years old and is Male; TRAUMA, FALL TECHNIQUE: Axial computed tomography images of the head/brain and cervical spine without intravenous contrast. Sagittal and coronal reformatted images were created and reviewed. This CT exam was pe rformed using one or more of the following dose reduction techniques: automated exposure control, a djustment of the mA and/or kV according to patient size, and/or use of iterative reconstruction techn ique. COMPARISON: No relevant prior studies available. FINDINGS: Brain: Mild cerebral atrophy. No hemorrhage. No significant white matter disease. Ventricles: Unremarkable. No ventriculomegaly. Skull: No acute fracture. Sinuses: Chronic left maxillary sinusitis. Mastoid air cells: Unremarkable as visualized. No mastoid effusion. Vertebrae: See below. Discs/spinal canal/neural foramina: Multilevel disc space narrowing with degenerative endplate ch anges. Moderate to severe right neural foraminal narrowing at C2-3. Severe right and moderate left neural foraminal narrowing at C3-4. Moderate bilateral neural foraminal narrowing at C6-7. Soft tissues: Unremarkable. IMPRESSION: No acute intracranial abnormality. No acute findings in the cervical spine. Electronically signed by: Ezra Mauricio MD 11/19/2022 2:23 AM CDT Due to temporary technical issues with the PACS/Fluency reporting system, reports are being signed by the in house radiologists without review as a courtesy to insure prompt reporting. The interpreting radiologist is fully responsible for the content of the report.
[2022-11-19] MEDS ORDERED: lisinopriL 20 MG TAB PO SCH (21:00)
[2022-11-19] MEDS ORDERED: GABAPENTIN 300 MG CAP PO SCH (21:00)
--- NOTE | 2022-11-20 06:42 | ECHO ---
HEIGHT: 6 ft 1 in WEIGHT: 153 lb 3.2 oz DATE OF STUDY: 11/19/[address]: Nell Rodriguez 2-DIMENSIONAL: YES M.MODE: YES DOPPLER: YES COLOR FLOW: YES TDS: PORTABLE: YES DEFINITY: BUBBLE STUDY: DIAGNOSIS: SYNCOPE CARDIAC HISTORY: CATHERIZATION: NO SURGERY: NO PROSTHETIC VALVE: NO PACEMAKER: NO MEASUREMENTS (cm) DIASTOLIC (NORMALS) SYSTOLIC (NORMALS) IVSd 0.9 (0.6-1.2) LA Diam 2.8 (1.9-4.0) LVEF 59% LVIDd 5.0 (3.5-5.7) LVIDs 3.4 (2.0-3.5) %FS 32% LVPWd 1.0 (0.6-1.2) Ao Diam 2.6 (2.0-3.7) 2 DIMENSIONAL ASSESSMENT: RIGHT ATRIUM: NORMAL LEFT ATRIUM: NORMAL RIGHT VENTRICLE: NORMAL LEFT VENTRICLE: NORMAL TRICUSPID VALVE: NORMAL MITRAL VALVE: TRACE MITRAL REGURGITATION PULMONIC VALVE: NORMAL AORTIC VALVE: NORMAL PERICARDIAL EFFUSION: NONE AORTIC ROOT: NORMAL LEFT VENTRICULAR WALL MOTION: NORMAL DOPPLER/COLOR FLOW: SEE BELOW COMMENTS: 1. NORMAL LEFT VENTRICULAR EJECTION FRACTION 55-60% 2. NORMAL WALL MOTION 3. GRADE I DIASTOLIC DYSFUNCTION 4. TRACE MITRAL REGURGITATION TECHNOLOGIST: STEFANIE DINERO
== END 2022-11-19 17:43 | disposition home or self-care (01) ==
LOC: ER 00:49 → ERHOLD 03:00 → 4TH 03:40
PROVIDERS: ADMIT Internal Medicine; ATTEND Internal Medicine
PROC: 0JQ00ZZ Repair Scalp Subcutaneous Tissue and Fascia, Open Approach (ICD-10-PCS; principal; 2022-11-19)
DX: R55 Syncope and collapse (principal); R00.1 Bradycardia, unspecified; I10 Essential (primary) hypertension; E78.5 Hyperlipidemia, unspecified; E11.9 Type 2 diabetes mellitus without complications; F17.210 Nicotine dependence, cigarettes, uncomplicated; S01.01XA Laceration without foreign body of scalp, initial encounter; W18.39XA Other fall on same level, initial encounter; Y93.9 Activity, unspecified; Y92.010 Kitchen of single-family (private) house as the place of occurrence of the external cause; Z86.73 Personal history of transient ischemic attack (TIA), and cerebral infarction without residual deficits; Z88.0 Allergy status to penicillin; Z91.09 Other allergy status, other than to drugs and biological substances
CPT/HCPCS: 93005; 93306; 85025; 80048; 36415; 83735; 80061; 82947 ×3; 80076; 83036; 84484 ×2; 70450; 72125; 71045; 73560; 93880; 97110; 97116; 97161; 96374; 99285; 12001; J2001; J1650; J7030; G0378 ×2

== ENCOUNTER 2022-11-30 19:13 | Emergency (ER) | payer OTHER ==
--- OUTSIDE RECORDS SUMMARY | 2022-11-30 19:34 | XMS REPORT | Continuity of Care Document ---
:1950 Author Organization [facility] t Address [address] [place] [address] Care Team Providers Name Role Phone Tricia Nava MD Primary Care Physician rTicia Nava MD Attending Clinician Lab, Ang - Db Attending Clinician Unavailable TRICIA NAVA Attending Clinician Unavailable Ion Vogel MD Attending Clinician Doctor Unassigned, [place] Attending Clinician Unavailable ION VOGEL Attending Clinician Unavailable JEWELL GIFFORD Attending Clinician Unavailable Wilfredo Vallejo Attending Clinician Unavailable Physician, No Primary or Family Admitting Clinician Unavaila ble Payers Payer Name Policy Type Policy Number Effective Date Expiration Date Korin wilson [employer] MEDICARE [id number] 2017 2019 COMPLETE 00:00:00 00:00:00 Problems Condition [...] [facility] n 0-15 Clear 00:00: [place] 00 [facility] metformi DA Active MO 2020-06 [facility] n 0-15 Clear 00:00: [place] 00 [facility] Iodine Propensi Active Rash 2018-06 Univers ty to 0-03 ity of adverse 00:00: [place] reaction Medical [facility] IODINE DRUG Active Rash 2018-06 Univers INGREDI 0-03 ity of 00:00: [place] [facility] Aspirin Propensi Active Unknown - Abdominal U nivers ty to See comments 4-15 pain ity of adverse 00:00: [place] reaction Medical [facility] ASPIRIN DRUG Active High Unknown-Cmnt Uni vers [...] [facility] ins 4-05 Clear 00:00: [place] 00 [facility] Penicill DA Active U [facility] ins 4-05 Clear 00:00: [place] 00 [facility] Social History Social Habit Start Date Stop Date Quantity Comments Source History of tobacco Cigarette Smoker University of use [facility] Exposure to 2022-09-21 2022-10-01 Not sure University SARS-CoV-2 (event) 00:00:00 14:59:00 [facility] Alcohol intake 2022-10-01 2022-10-01 Current drinker Unive rsity of 00:00:00 00:00:00 of alcohol [facility] Branch Tobacco use and 2022-03-06 2022-03-06 Smokeless Universit y of exposure 00:00:00 00:00:00 tobacco non-user [facility] [place] Cigarettes smoked 2022-03-06 2022-03-06 Univers ity of current (pack per 00:00:00 00:00:00 ) - Reported Branch Sex [birth year] Universit y of 00:00:00 00:00:00 [facility] Smoking Status Start Date Stop Date Source Smokes tobacco daily 2022-03-06 00:00:00 Univers ity of [facility] Medications Ordered Filled Start Stop Current Ordering Indication Dosage Frequency Signature Comments Components Source Medication Medication Date Date Medication? Clinician (SIG) Name Name lisinopriL Yes [id number] 20mg Take 1 U nivers 20 mg 6-16 tablet by ity of tablet 00:00: mouth in [place] [address] the Medical morning Branch and 1 tablet in the evening. lisinopriL 0 Yes [id number] 20mg Take 1 U nivers 20 mg 6-16 tablet by ity of tablet 00:00: mouth in [place] [address] the Medical morning Branch and 1 tablet in the evening. fenofibrate Yes 54mg Take 1 Univ ers 54 mg 6-16 tablet by ity of tablet 00:00: mouth in [place] 00 the Medical morning. Branch blood sugar Yes [id number] Use as Univers diagnostic 6-15 directed ity o f (TRUE 00:00: twice [place] METRIX 00 daily. Medical GLUCOSE Branch TEST STRIP) strip lancets Yes [id number] Use as Uni vers (TRUEPLUS 6-15 directed ity of LANCETS) 33 00:00: twice [place] gauge Misc 00 daily. Medical Branch Alcohol 0 Yes [id number] Use as Uni vers Swabs (BD 6-15 directed ity of SINGLE USE 00:00: twice [place] SWABS 00 daily. Medical REGULAR) Branch PadM Blood Yes [id number] Use as Unive rs Glucose 6-15 directed ity of Control, 00:00: twice [place] Low (TRUE 00 daily. Medical METRIX Branch LEVEL 1) Soln Blood-Gluco Yes [id number] Use as Univers se Meter 6-15 directed ity of (TRUE 00:00: twice [place] METRIX AIR 00 daily. Medical GLUCOSE Branch METER) Misc blood sugar Yes [id number] Use as Univers diagnostic 6-15 directed ity o f (TRUE 00:00: twice [place] METRIX 00 daily. Medical GLUCOSE Branch TEST STRIP) strip lancets Yes [id number] Use as Uni vers (TRUEPLUS 6-15 directed ity of LANCETS) 33 00:00: twice [place] gauge Misc 00 daily. Medical Branch Alcohol 0 Yes [id number] Use as Uni vers Swabs (BD 6-15 directed ity of SINGLE USE 00:00: twice [place] SWABS 00 daily. Medical REGULAR) Branch PadM Blood 0 Yes [id number] Use as Unive rs Glucose 6-15 directed ity of Control, 00:00: twice [place] Low (TRUE 00 daily. Medical METRIX Branch LEVEL 1) Soln Blood-Gluco 0 Yes [id number] Use as Univers se Meter 6-15 directed ity of (TRUE 00:00: twice [place] METRIX AIR 00 daily. Medical GLUCOSE Branch METER) Misc gabapentin 0 Yes [id number] 300mg Take 1 Univers 300 mg 5-22 capsule by ity of capsule 00:00: mouth in [place] 00 the Medical morning Branch and 1 capsule at noon and 1 capsule in the evening. gabapentin 2023-0 Yes [id number] 300mg Take 1 Univers 300 mg 5-22 capsule by ity of capsule 00:00: mouth in [place] [address] the Medical morning Branch and 1 capsule at noon and 1 capsule in the evening. gabapentin 2023-0 Yes [id number] 300mg Take 1 Univers 300 mg 5-22 capsule by ity of capsule 00:00: mouth in [place] [address] the Medical morning Branch and 1 capsule at noon and 1 capsule in the evening. gabapentin 2023-0 Yes [id number] 300mg Take 1 Univers 300 mg 5-22 capsule by ity of capsule 00:00: mouth in [place] [address] the Medical morning Branch and 1 capsule at noon and 1 capsule in the evening. FAMOTIDINE 2022-0 Yes [id number] TAKE 1 Univers 20 mg 3-14 TABLET ity of tablet 00:00: TWICE [place] DAILY Medical Branch FAMOTIDINE 3-0 Yes [id number] TAKE 1 Univers 20 mg 3-14 TABLET ity of tablet 00:00: TWICE [place] DAILY Medical Branch FAMOTIDINE 3-0 Yes [id number] TAKE 1 Univers 20 mg 3-14 TABLET ity of tablet 00:00: TWICE [place] DAILY Medical Branch FAMOTIDINE 3-0 Yes [id number] TAKE 1 Univers 20 mg 3-14 TABLET ity of tablet 00:00: TWICE [place] DAILY Medical Branch FAMOTIDINE 2023-0 Yes [id number] TAKE 1 Univers 20 mg 3-14 TABLET ity of tablet 00:00: TWICE [place] DAILY Medical Branch FAMOTIDINE 2023-0 Yes [id number] TAKE 1 Univers 20 mg 3-14 TABLET ity of tablet 00:00: TWICE [place] DAILY Medical Branch FAMOTIDINE 3-0 Yes [id number] TAKE 1 Univers 20 mg 3-14 TABLET ity of tablet 00:00: TWICE [place] DAILY Medical Branch FAMOTIDINE 3-0 Yes [id number] TAKE 1 Univers 20 mg 3-14 TABLET ity of tablet 00:00: TWICE [place] DAILY Medical Branch GLYBURIDE 5 2022-0 Yes TAKE 1 Univ ers mg tablet 2-28 TABLET ity of 00:00: TWICE [place] DAILY WITH Medical MEALS Branch GLYBURIDE 5 2022-0 Yes TAKE 1 Univ ers mg tablet 2-28 TABLET ity of 00:00: TWICE [place] DAILY WITH Medical MEALS Branch GLYBURIDE 5 2022-0 Yes TAKE 1 Univ ers mg tablet 2-28 TABLET ity of 00:00: TWICE [place] DAILY WITH Medical MEALS Branch GLYBURIDE 5 2022-0 Yes TAKE 1 Univ ers mg tablet 2-28 TABLET ity of 00:00: TWICE [place] DAILY WITH Medical MEALS Branch GLYBURIDE 5 2022-0 Yes TAKE 1 Univ ers mg tablet 2-28 TABLET ity of 00:00: TWICE [place] DAILY WITH Medical MEALS Branch GLYBURIDE 5 2022-0 Yes TAKE 1 Univ ers mg tablet 2-28 TABLET ity of 00:00: TWICE [place] DAILY WITH Medical MEALS Branch GLYBURIDE 5 2022-0 Yes TAKE 1 Univ ers mg tablet 2-28 TABLET ity of 00:00: TWICE [place] DAILY WITH Medical MEALS Branch GLYBURIDE 5 2022-0 Yes TAKE 1 Univ ers mg tablet 2-28 TABLET ity of 00:00: TWICE [place] DAILY WITH Medical MEALS Branch GLYBURIDE 5 2022-0 Yes TAKE 1 Univ ers mg tablet 2-28 TABLET ity of 00:00: TWICE [place] DAILY WITH Medical MEALS Branch LISINOPRIL 3-0 Yes [id number] TAKE 1 U nivers 20 mg 1-26 TABLET ity of tablet 00:00: TWICE [place] DAILY Medical Branch LISINOPRIL 2023-0 Yes [id number] TAKE 1 U nivers 20 mg 1-26 TABLET ity of tablet 00:00: TWICE [place] DAILY Medical Branch LISINOPRIL 2023-0 Yes [id number] TAKE 1 U nivers 20 mg 1-26 TABLET ity of tablet 00:00: TWICE [place] DAILY Medical Branch LISINOPRIL 2023-0 Yes [id number] TAKE 1 U nivers 20 mg 1-26 TABLET ity of tablet 00:00: TWICE [place] DAILY Medical Branch LISINOPRIL 2023-0 Yes [id number] TAKE 1 U nivers 20 mg 1-26 TABLET ity of tablet 00:00: TWICE [place] DAILY Medical Branch LISINOPRIL 2023-0 Yes [id number] TAKE 1 U nivers 20 mg 1-26 TABLET ity of tablet 00:00: TWICE [place] DAILY Medical Branch LISINOPRIL 2023-0 Yes [id number] TAKE 1 U nivers 20 mg 1-26 TABLET ity of tablet 00:00: TWICE [place] DAILY Medical Branch LISINOPRIL 2022-0 Yes [id number] TAKE 1 U nivers 20 mg 1-26 TABLET ity of tablet 00:00: TWICE [place] DAILY Medical Branch LISINOPRIL 2022-0 Yes [id number] TAKE 1 U nivers 20 mg 1-26 TABLET ity of tablet 00:00: TWICE [place] DAILY Medical Branch LISINOPRIL 2022-0 Yes [id number] TAKE 1 U nivers 20 mg 1-26 TABLET ity of tablet 00:00: TWICE [place] DAILY Medical Branch LISINOPRIL 3-0 3- No [id number] TAKE 1 Univers 20 mg 1-26 06-16 TABLET ity of tablet 00:00: 00:00 TWICE [place] 00 :00 DAILY Medical Branch CLOPIDOGREL 2021- Yes [id number] TAKE 1 Univers 75 mg 2-29 TABLET ity of tablet 00:00: EVERY DAY [place] [facility] Branch BACLOFEN 10 2021-06 Yes [id number] TAKE 1 Univers mg tablet 2-29 TABLET AT ity o f 00:00: BEDTIME [place] [facility] CLOPIDOGREL 2021- Yes [id number] TAKE 1 Univers 75 mg 2-29 TABLET ity of tablet 00:00: EVERY DAY [place] [address] Medical Branch BACLOFEN 10 2021- Yes [id number] TAKE 1 Univers mg tablet 2-29 TABLET AT ity o f 00:00: BEDTIME [place] [facility] CLOPIDOGREL 2021- Yes [id number] TAKE 1 Univers 75 mg 2-29 TABLET ity of tablet 00:00: EVERY DAY [place] [address] Medical Branch BACLOFEN 10 2021- Yes [id number] TAKE 1 Univers mg tablet 2-29 TABLET AT ity o f 00:00: BEDTIME [place] [facility] CLOPIDOGREL 2021- Yes [id number] TAKE 1 Univers 75 mg 2-29 TABLET ity of tablet 00:00: EVERY DAY [place] [address] Medical Branch BACLOFEN 10 2021- Yes [id number] TAKE 1 Univers mg tablet 2-29 TABLET AT ity o f 00:00: BEDTIME [place] [address] Medical Branch CLOPIDOGREL 2021- Yes [id number] TAKE 1 Univers 75 mg 2-29 TABLET ity of tablet 00:00: EVERY DAY [place] [address] Medical Branch BACLOFEN 10 2021- Yes [id number] TAKE 1 Univers mg tablet 2-29 TABLET AT ity o f 00:00: BEDTIME [place] [facility] CLOPIDOGREL 2021- Yes [id number] TAKE 1 Univers 75 mg 2-29 TABLET ity of tablet 00:00: EVERY DAY [place] [facility] BACLOFEN 10 2021- Yes [id number] TAKE 1 Univers mg tablet 2-29 TABLET AT ity o f 00:00: BEDTIME [place] [facility] CLOPIDOGREL 2021- Yes [id number] TAKE 1 Univers 75 mg 2-29 TABLET ity of tablet 00:00: EVERY DAY [place] [facility] BACLOFEN 10 2021- Yes [id number] TAKE 1 Univers mg tablet 2-29 TABLET AT ity o f 00:00: BEDTIME [place] [facility] CLOPIDOGREL 2021- Yes [id number] TAKE 1 Univers 75 mg 2-29 TABLET ity of tablet 00:00: EVERY DAY [address] BACLOFEN 10 2021-06 Yes [id number] TAKE 1 Univers mg tablet 2-29 TABLET AT ity o f 00:00: BEDTIME [place] [facility] Branch CLOPIDOGREL 2021- Yes [id number] TAKE 1 Univers 75 mg 2-29 TABLET ity of tablet 00:00: EVERY DAY [place] [address] Medical Branch BACLOFEN 10 2021- Yes [id number] TAKE 1 Univers mg tablet 2-29 TABLET AT ity o f 00:00: BEDTIME [place] [facility] Branch CLOPIDOGREL 2021- Yes [id number] TAKE 1 Univers 75 mg 2-29 TABLET ity of tablet 00:00: EVERY DAY [address] Branch BACLOFEN 10 2021- Yes [id number] TAKE 1 Univers mg tablet 2-29 TABLET AT ity o f 00:00: BEDTIME [place] [address] Medical Branch CLOPIDOGREL 2021- Yes [id number] TAKE 1 Univers 75 mg 2-29 TABLET ity of tablet 00:00: EVERY DAY [place] [address] Medical Branch BACLOFEN 10 2021- Yes [id number] TAKE 1 Univers mg tablet 2-29 TABLET AT ity o f 00:00: BEDTIME [place] [address] Medical Branch CLOPIDOGREL 2021- Yes [id number] TAKE 1 Univers 75 mg 2-29 TABLET ity of tablet 00:00: EVERY DAY [place] [address] Medical Branch BACLOFEN 10 2021- Yes [id number] TAKE 1 Univers mg tablet 2-29 TABLET AT ity o f 00:00: BEDTIME [address] CLOPIDOGREL 2022-1 Yes [id number] TAKE 1 Univers 75 mg 2-29 TABLET ity of tablet 00:00: EVERY DAY [address] BACLOFEN 10 2021-06 Yes [id number] TAKE 1 Univers mg tablet 2-29 TABLET AT ity o f 00:00: BEDTIME [address] AMLODIPINE 2021-06 Yes [id number] TAKE 1 U nivers 10 mg 2-28 TABLET ity of tablet 00:00: EVERY DAY [address] ATORVASTATI 2021-06 Yes [id number] TAKE 1 Univers N 20 mg 2-28 TABLET AT ity of tablet 00:00: BEDTIME [address] MONTELUKAST 2021-06 Yes [id number] TAKE 1 Univers 10 mg 2-28 TABLET ity of tablet 00:00: EVERY DAY [address] AMLODIPINE 2021-06 Yes [id number] TAKE 1 U nivers 10 mg 2-28 TABLET ity of tablet 00:00: EVERY DAY [address] ATORVASTATI 2021-06 Yes [id number] TAKE 1 Univers N 20 mg 2-28 TABLET AT ity of tablet 00:00: BEDTIME [address] MONTELUKAST 2021-06 Yes [id number] TAKE 1 Univers 10 mg 2-28 TABLET ity of tablet 00:00: EVERY DAY [address] AMLODIPINE 2021-06 Yes [id number] TAKE 1 U nivers 10 mg 2-28 TABLET ity of tablet 00:00: EVERY DAY [address] ATORVASTATI 2021-06 Yes [id number] TAKE 1 Univers N 20 mg 2-28 TABLET AT ity of tablet 00:00: BEDTIME [address] MONTELUKAST 2021-06 Yes [id number] TAKE 1 Univers 10 mg 2-28 TABLET ity of tablet 00:00: EVERY DAY [address] AMLODIPINE 2021-06 Yes [id number] TAKE 1 U nivers 10 mg 2-28 TABLET ity of tablet 00:00: EVERY DAY [address] ATORVASTATI 2021-06 Yes [id number] TAKE 1 Univers N 20 mg 2-28 TABLET AT ity of tablet 00:00: BEDTIME [address] MONTELUKAST 2021-06 Yes [id number] TAKE 1 Univers 10 mg 2-28 TABLET ity of tablet 00:00: EVERY DAY [place] [facility] [place] AMLODIPINE 2021-06 Yes [id number] TAKE 1 U nivers 10 mg 2-28 TABLET ity of tablet 00:00: EVERY DAY [place] [facility] [place] ATORVASTATI 2021-06 Yes [id number] TAKE 1 Univers N 20 mg 2-28 TABLET AT ity of tablet 00:00: BEDTIME [address] MONTELUKAST 2021-06 Yes [id number] TAKE 1 Univers 10 mg 2-28 TABLET ity of tablet 00:00: EVERY DAY [place] [facility] [place] AMLODIPINE 2021-06 Yes [id number] TAKE 1 U nivers 10 mg 2-28 TABLET ity of tablet 00:00: EVERY DAY [place] [address] Medical [place] ATORVASTATI 2021-06 Yes [id number] TAKE 1 Univers N 20 mg 2-28 TABLET AT ity of tablet 00:00: BEDTIME [address] MONTELUKAST 2021-06 Yes [id number] TAKE 1 Univers 10 mg 2-28 TABLET ity of tablet 00:00: EVERY DAY [place] [facility] [place] AMLODIPINE 2021-06 Yes [id number] TAKE 1 U nivers 10 mg 2-28 TABLET ity of tablet 00:00: EVERY DAY [place] [address] Medical [place] ATORVASTATI 2021-06 Yes [id number] TAKE 1 Univers N 20 mg 2-28 TABLET AT ity of tablet 00:00: BEDTIME [address] MONTELUKAST 2021-06 Yes [id number] TAKE 1 Univers 10 mg 2-28 TABLET ity of tablet 00:00: EVERY DAY [place] [address] Medical [place] AMLODIPINE 2021-06 Yes [id number] TAKE 1 U nivers 10 mg 2-28 TABLET ity of tablet 00:00: EVERY DAY [place] [address] Medical [place] ATORVASTATI 2021-06 Yes [id number] TAKE 1 Univers N 20 mg 2-28 TABLET AT ity of tablet 00:00: BEDTIME [address] MONTELUKAST 2021-06 Yes [id number] TAKE 1 Univers 10 mg 2-28 TABLET ity of tablet 00:00: EVERY DAY [place] [address] Medical [place] AMLODIPINE 2021-06 Yes [id number] TAKE 1 U nivers 10 mg 2-28 TABLET ity of tablet 00:00: EVERY DAY [place] [address] Medical [place] ATORVASTATI 2021-06 Yes [id number] TAKE 1 Univers N 20 mg 2-28 TABLET AT ity of tablet 00:00: BEDTIME [facility] MONTELUKAST 2021-06 Yes [id number] TAKE 1 Univers 10 mg 2-28 TABLET ity of tablet 00:00: EVERY DAY [place] [facility] AMLODIPINE 2021-06 Yes [id number] TAKE 1 U nivers 10 mg 2-28 TABLET ity of tablet 00:00: EVERY DAY [address] ATORVASTATI 2021-06 Yes [id number] TAKE 1 Univers N 20 mg 2-28 TABLET AT ity of tablet 00:00: BEDTIME [address] [place] [address] MONTELUKAST 2021-06 Yes [id number] TAKE 1 Univers 10 mg 2-28 TABLET ity of tablet 00:00: EVERY DAY [address] AMLODIPINE 2021-06 Yes [id number] TAKE 1 U nivers 10 mg 2-28 TABLET ity of tablet 00:00: EVERY DAY [address] ATORVASTATI 2021-06 Yes [id number] TAKE 1 Univers N 20 mg 2-28 TABLET AT ity of tablet 00:00: BEDTIME [address] MONTELUKAST 2021-06 Yes [id number] TAKE 1 Univers 10 mg 2-28 TABLET ity of tablet 00:00: EVERY DAY [address] AMLODIPINE 2021-06 Yes [id number] TAKE 1 U nivers 10 mg 2-28 TABLET ity of tablet 00:00: EVERY DAY [address] ATORVASTATI 2021-06 Yes [id number] TAKE 1 Univers N 20 mg 2-28 TABLET AT ity of tablet 00:00: BEDTIME [address] MONTELUKAST 2021-06 Yes [id number] TAKE 1 Univers 10 mg 2-28 TABLET ity of tablet 00:00: EVERY DAY [address] AMLODIPINE 2021-06 Yes [id number] TAKE 1 U nivers 10 mg 2-28 TABLET ity of tablet 00:00: EVERY DAY [address] ATORVASTATI 2021-06 Yes [id number] TAKE 1 Univers N 20 mg 2-28 TABLET AT ity of tablet 00:00: BEDTIME [address] MONTELUKAST 2021-06 Yes [id number] TAKE 1 Univers 10 mg 2-28 TABLET ity of tablet 00:00: EVERY DAY [address] glyBURIDE 5 2021-06 Yes 2.5mg Take 0.5 U nivers mg tablet 1-07 tablets by ity of 00:00: mouth in [place] 00 the Medical morning Branch and 0.5 tablets in the evening. Take with meals. glyBURIDE 5 2021-06 Yes 2.5mg Take 0.5 U nivers mg tablet 1-07 tablets by ity of 00:00: mouth in [place] 00 the Medical morning Branch and 0.5 tablets in the evening. Take with meals. glyBURIDE 5 2021-06 Yes 2.5mg Take 0.5 U nivers mg tablet 1-07 tablets by ity of 00:00: mouth in [place] 00 the Medical morning Branch and 0.5 tablets in the evening. Take with meals. glyBURIDE 5 2021-06 Yes 2.5mg Take 0.5 U nivers mg tablet 1-07 tablets by ity of 00:00: mouth in [place] 00 the Medical morning Branch and 0.5 tablets in the evening. Take with meals. glyBURIDE 5 2021-06 Yes 2.5mg Take 0.5 U nivers mg tablet 1-07 tablets by ity of 00:00: mouth in [place] [address] the Medical morning Branch and 0.5 tablets in the evening. Take with meals. glyBURIDE 5 2021-06 Yes 2.5mg Take 0.5 U nivers mg tablet 1-07 tablets by ity of 00:00: mouth in [place] [address] the Medical morning Branch and 0.5 tablets in the evening. Take with meals. glyBURIDE 5 2021-06- No 2.5mg Take 0.5 Univers mg tablet - 02-28 tablets by ity of 00:00: 00:00 mouth in [place] 00 :00 the [facility] morning [place] and 0.5 tablets in the evening. Take with meals. mupirocin 2 2021-06- No [id number] Apply to Univers % ointment 06-13 area(s) 3 ity of 00:00: 05:59 (three) [place] 00 :00 times Medical daily for Branch 10 days. mupirocin 2 2021-06- No [id number] Apply to Univers % ointment 06-1318 area(s) 3 ity of 00:00: 05:59 (three) [place] 00 :00 times Medical daily for Branch 10 days. gabapentin 2021- Yes [id number] 300mg Take 1 Univers 300 mg 0-03 capsule by ity of capsule 00:00: mouth in [address] and 1 capsule at noon and 1 capsule in the evening. gabapentin 2021- Yes [id number] 300mg Take 1 Univers 300 mg 0-03 capsule by ity of capsule 00:00: mouth in [address] and 1 capsule at noon and 1 capsule in the evening. gabapentin 2021- Yes [id number] 300mg Take 1 [facility] 300 mg 0-03 capsule by ity of capsule 00:00: mouth in [address] and 1 capsule at noon and 1 capsule in the evening. gabapentin 2021- Yes [id number] 300mg Take 1 [facility] 300 mg 0-03 capsule by ity of capsule 00:00: mouth in [address] and 1 capsule at noon and 1 capsule in the evening. gabapentin 2021-06 Yes [id number] 300mg Take 1 [facility] 300 mg 0-03 capsule by ity of capsule 00:00: mouth in [address] and 1 capsule at noon and 1 capsule in the evening. gabapentin 2021- Yes [id number] 300mg Take 1 Univers 300 mg 0-03 capsule by ity of capsule 00:00: mouth in [address] and 1 capsule at noon and 1 capsule in the evening. gabapentin 2021- Yes [id number] 300mg Take 1 Univers 300 mg 0-03 capsule by ity of capsule 00:00: mouth in [address] and 1 capsule at noon and 1 capsule in the evening. gabapentin 2021- Yes [id number] 300mg Take 1 Univers 300 mg 0-03 capsule by ity of capsule 00:00: mouth in [address] and 1 capsule at noon and 1 capsule in the evening. gabapentin 2021-1 Yes [id number] 300mg Take 1 Univers 300 mg 0-03 capsule by ity of capsule 00:00: mouth in [address] and 1 capsule at noon and 1 capsule in the evening. gabapentin 2021-1 Yes [id number] 300mg Take 1 Univers 300 mg 0-03 capsule by ity of capsule 00:00: mouth in [place] 00 the Medical morning Branch and 1 capsule at noon and 1 capsule in the evening. gabapentin 2021-06 Yes [id number] 300mg Take 1 Univers 300 mg 0-03 capsule by ity of capsule 00:00: mouth in [place] 00 the Medical morning Branch and 1 capsule at noon and 1 capsule in the evening. gabapentin 2021-06 Yes [id number] 300mg Take 1 Univers 300 mg 0-03 capsule by ity of capsule 00:00: mouth in [place] 00 the Medical morning Branch and 1 capsule at noon and 1 capsule in the evening. gabapentin 2021-06 Yes [id number] 300mg Take 1 Univers 300 mg 0-03 capsule by ity of capsule 00:00: mouth in [place] 00 the Medical morning Branch and 1 capsule at noon and 1 capsule in the evening. gabapentin 2021-06- No [id number] 300mg Take 1 Univers 300 mg 0-03 05-22 capsule by ity of capsule 00:00: 00:00 mouth in [place] 00 :00 the Medical morning Branch and [...] tablet by ity o f 00:00: mouth () Medical times Branch daily with meals. glyBURIDE 5 2021-0 Yes 5mg Take 1 Univ ers mg tablet 6-29 tablet by ity o f 00:00: mouth (two) Medical times Branch daily with meals. glyBURIDE 5 2-0 Yes 5mg Take 1 Univ ers mg tablet 6-29 tablet by ity o f 00:00: mouth (two) Medical times Branch daily with meals. glyBURIDE 5 2021-0 Yes 5mg Take 1 Univ ers mg tablet 6-29 tablet by ity o f 00:00: mouth (two) Medical times Branch daily with meals. glyBURIDE 5 2021-0 2022- No 5mg Take 1 Uni vers mg tablet 12-03 tablet by ity of 00:00: 00:00 mouth 2 [place] 00 :00 (two) Medical times Branch daily with meals. glyBURIDE 5 2021-0 2021- No 5mg Take 1 Uni vers mg tablet 12-03 tablet by ity of 00:00: 00:00 mouth 2 [place] 00 :00 (two) Medical times Branch daily with meals. glyBURIDE 5 2021-0 202- No 5mg Take 1 Uni vers mg tablet 12-03 tablet by ity of 00:00: 00:00 mouth 2 [place] 00 :00 (two) Medical times Branch daily with meals. glyBURIDE 5 2021-0 2021- No 5mg Take 1 Uni vers mg tablet 12-03 tablet by ity of 00:00: 00:00 mouth 2 [place] 00 :00 (two) Medical times Branch daily with meals. famotidine 2021-0 Yes [id number] 20mg Take 1 Univers (PEPCID) 20 3-23 tablet by ity of mg tablet 00:00: mouth [place] (two) Medical times Branch daily. famotidine 2022-0 Yes [id number] 20mg Take 1 Univers (PEPCID) 20 3-23 tablet by ity of mg tablet 00:00: mouth [place] (two) Medical times Branch daily. famotidine 2022-0 Yes [id number] 20mg Take 1 Univers (PEPCID) 20 3-23 tablet by ity of mg tablet 00:00: mouth [place] (two) Medical times Branch daily. famotidine 2022-0 Yes [id number] 20mg Take 1 Univers (PEPCID) 20 3-23 tablet by ity of mg tablet 00:00: mouth [place] (two) Medical times Branch daily. famotidine 2022-0 Yes [id number] 20mg Take 1 Univers (PEPCID) 20 3-23 tablet by ity of mg tablet 00:00: mouth [place] (two) Medical times Branch daily. famotidine 2022-0 Yes [id number] 20mg Take 1 Univers (PEPCID) 20 3-23 tablet by ity of mg tablet 00:00: mouth [place] (two) Medical times Branch daily. famotidine 2022-0 Yes [id number] 20mg Take 1 Univers (PEPCID) 20 3-23 tablet by ity of mg tablet 00:00: mouth (two) Medical times Branch daily. famotidine 2022-0 Yes [id number] 20mg Take 1 Univers (PEPCID) 20 3-23 tablet by ity of mg tablet 00:00: mouth (two) Medical times Branch daily. famotidine 2022-0 Yes [id number] 20mg Take 1 Univers (PEPCID) 20 3-23 tablet by ity of mg tablet 00:00: mouth (two) Medical times Branch daily. famotidine 2022-0 Yes [id number] 20mg Take 1 Univers (PEPCID) 20 3-23 tablet by ity of mg tablet 00:00: mouth (two) Medical times Branch daily. famotidine 2-0 Yes [id number] 20mg Take 1 Univers (PEPCID) 20 3-23 tablet by ity of mg tablet 00:00: mouth (two) Medical times Branch daily. famotidine 2-0 Yes [id number] 20mg Take 1 [facility] (PEPCID) 20 3-23 tablet by ity of mg tablet 00:00: mouth (two) Medical times Branch daily. famotidine 2022-0 Yes [id number] 20mg Take 1 [facility] (PEPCID) 20 3-23 tablet by ity of mg tablet 00:00: mouth (two) Medical times Branch daily. famotidine 2022-0 Yes [id number] 20mg Take 1 [facility] (PEPCID) 20 3-23 tablet by ity of mg tablet 00:00: mouth (two) Medical times Branch daily. famotidine 2022-0 Yes [id number] 20mg Take 1 [facility] (PEPCID) 20 3-23 tablet by ity of mg tablet 00:00: mouth (two) Medical times Branch daily. famotidine 2022-0 Yes [id number] 20mg Take 1 [facility] (PEPCID) 20 3-23 tablet by ity of mg tablet 00:00: mouth (two) Medical times Branch daily. famotidine 2022-0 Yes [id number] 20mg Take 1 [facility] (PEPCID) 20 3-23 tablet by ity of mg tablet 00:00: mouth ([facility]) Medical times Branch daily. famotidine 2021-0 Yes [id number] 20mg Take 1 [facility] (PEPCID) 20 3-23 tablet by ity of mg tablet 00:00: mouth (two) Medical times Branch daily. famotidine 2021-0 2022- No [id number] 20mg Take 1 [facility] (PEPCID) 20 3-23 03-14 tablet by it y of mg tablet 00:00: 00:[place] mouth [place] (two[place] Medical times Branch daily. glyBURIDE 5 2021-0 Yes [id number] 5mg Take 1 [facility] mg tablet 3-15 tablet by ity o f 00:00: mouth ([facility]) Medical times Branch daily with meals. TAKE ONE TABLET BY MOUTH ONCE DAILY WITH BREAKFAST glyBURIDE 5 2021-0 Yes [id number] 5mg Take 1 [facility] mg tablet 3-15 tablet by ity o f 00:00: mouth ([facility]) Medical times Branch daily with meals. TAKE ONE TABLET BY MOUTH ONCE DAILY WITH BREAKFAST glyBURIDE 5 2021-0 Yes [id number] 5mg Take 1 [facility] mg tablet 3-15 tablet by ity o f 00:00: mouth ([facility]) Medical times Branch daily with meals. TAKE ONE TABLET BY MOUTH ONCE DAILY WITH BREAKFAST glyBURIDE 5 2021-0 Yes [id number] 5mg Take 1 [facility] mg tablet 3-15 tablet by ity o f 00:00: mouth ([facility]) Medical times Branch daily with meals. TAKE ONE TABLET BY MOUTH ONCE DAILY WITH BREAKFAST glyBURIDE 5 2021-0 2021- No [id number] 5mg Take 1 [facility] mg tablet 3-15 06-29 tablet by ity of 00:00: 00:00 mouth ([facility]) Medical times Branch daily with meals. TAKE ONE TABLET BY MOUTH ONCE DAILY WITH BREAKFAST glyBURIDE 5 2021-0 2- No [id number] 5mg Take 1 [facility] mg tablet 3-15 06-29 tablet by ity of 00:00: 00:00 mouth 2 (two) Medical times Branch daily with meals. TAKE ONE TABLET BY MOUTH ONCE DAILY WITH BREAKFAST glyBURIDE 5 2021-0 2021- No [id number] 5mg Take 1 [facility] mg tablet 3-19 11- tablet by ity of 00:00: 00:00 mouth [...] Take 1 [facility] ers (PEPCID) 20 3-15 - tablet by it y of mg tablet 00:00: 00:[place] mouth [place] (two) Medical times Branch daily. gabapentin 2021-0 Yes [id number] 300mg Take 1 [facility] 300 mg 3-11 capsule by ity of capsule 00:00: mouth 3 (three) Medical times Branch daily. amLODIPine 2021-0 Yes [id number] 10mg Take 1 [facility] nivers 10 mg 3-11 tablet by ity of tablet 00:00: mouth [place] 00 daily. Medical Branch baclofen 10 2021-0 Yes [id number] 10mg Take 1 [facility] mg tablet 3-11 tablet by ity o f 00:00: mouth at [place] [address] bedtime. Medical Branch clopidogreL 2021-0 Yes [id number] 75mg Take 1 [facility] 75 mg 3-11 tablet by ity of tablet 00:00: mouth 00 daily. Medical Branch atorvastati 2021-0 Yes [id number] 20mg Take 1 [facility] n 20 mg 3-11 tablet by ity of tablet 00:00: mouth at [place] 00 bedtime. Medical Branch lisinopriL 2021-0 Yes [id number] 20mg Take 1 [facility] n[facility] 20 mg 3-11 tablet by ity of tablet 00:00: mouth 2 00 (two) Medical times Branch daily. montelukast 2021-0 Yes [id number] 10mg Take 1 [facility] 10 mg 3-11 tablet by ity of tablet 00:00: mouth [place] 00 daily. Medical Branch gabapentin 2021-0 Yes [id number] 300mg Take 1 [facility] 300 mg 3-11 capsule by ity of capsule 00:00: mouth 3 00 (three) Medical times Branch daily. amLODIPine 2021-0 Yes [id number] 10mg Take 1 [facility] nivers 10 mg 3-11 tablet by ity of tablet 00:00: mouth [place] 00 daily. Medical Branch baclofen 10 2021-0 Yes [id number] 10mg Take 1 [facility] mg tablet 3-11 tablet by ity o f 00:00: mouth at [place] 00 bedtime. Medical Branch clopidogreL 2021-0 Yes [id number] 75mg Take 1 [facility] 75 mg 3-11 tablet by ity of tablet 00:00: mouth [place] 00 daily. Medical Branch atorvastati 2021-0 Yes [id number] 20mg Take 1 [facility] n 20 mg 3-11 tablet by ity of tablet 00:00: mouth at [place] 00 bedtime. Medical Branch lisinopriL 2021-0 Yes [id number] 20mg Take 1 [facility] nivers 20 mg 3-11 tablet by ity of tablet 00:00: mouth 2 00 (two) Medical times Branch daily. montelukast 2021-0 Yes [id number] 10mg Take 1 [facility] 10 mg 3-11 tablet by ity of tablet 00:00: mouth [place] 00 daily. Medical Branch gabapentin 2021-0 Yes [id number] 300mg Take 1 [facility] 300 mg 3-11 capsule by ity of capsule 00:00: mouth 3 00 (three) Medical times Branch daily. amLODIPine 2021-0 Yes [id number] 10mg Take 1 U nivers 10 mg 3-11 tablet by ity of tablet 00:00: mouth [place] 00 daily. Medical Branch baclofen 10 2021-0 Yes [id number] 10mg Take 1 [facility] mg tablet 3-11 tablet by ity o f 00:00: mouth at [place] 00 bedtime. Medical Branch clopidogreL 2021-0 Yes [id number] 75mg Take 1 [facility] 75 mg 3-11 tablet by ity of tablet 00:00: mouth [place] 00 daily. Medical Branch atorvastati 2021-0 Yes [id number] 20mg Take 1 [facility] n 20 mg 3-11 tablet by ity of tablet 00:00: mouth at [place] 00 bedtime. Medical Branch lisinopriL 2021-0 Yes [id number] 20mg Take 1 [facility] nivers 20 mg 3-11 tablet by ity of tablet 00:00: mouth 2 00 (two) Medical times Branch daily. montelukast 2021-0 Yes [id number] 10mg Take 1 [facility] 10 mg 3-11 tablet by ity of tablet 00:00: mouth [place] 00 daily. Medical Branch gabapentin 2021-0 Yes [id number] 300mg Take 1 [facility] 300 mg 3-11 capsule by ity of capsule 00:00: mouth 3 00 (three) Medical times Branch daily. amLODIPine 2021-0 Yes [id number] 10mg Take 1 U nivers 10 mg 3-11 tablet by ity of tablet 00:00: mouth [place] 00 daily. Medical Branch baclofen 10 2021-0 Yes [id number] 10mg Take 1 [facility] mg tablet 3-11 tablet by ity o f 00:00: mouth at [place] 00 bedtime. Medical Branch clopidogreL 2021-0 Yes [id number] 75mg Take 1 [facility] 75 mg 3-11 tablet by ity of tablet 00:00: mouth [place] 00 daily. Medical Branch atorvastati 2021-0 Yes [id number] 20mg Take 1 [facility] n 20 mg 3-11 tablet by ity of tablet 00:00: mouth at [place] 00 bedtime. Medical Branch lisinopriL 2021-0 Yes [id number] 20mg Take 1 [facility] nivers 20 mg 3-11 tablet by ity of tablet 00:00: mouth 2 (two) Medical times Branch daily. montelukast 2021-0 Yes [id number] 10mg Take 1 [facility] 10 mg 3-11 tablet by ity of tablet 00:00: mouth [place] 00 daily. Medical Branch gabapentin 2021-0 Yes [id number] 300mg Take 1 [facility] 300 mg 3-11 capsule by ity of capsule 00:00: mouth 3 00 (three) Medical times Branch daily. amLODIPine 2021-0 Yes [id number] 10mg Take 1 U nivers 10 mg 3-11 tablet by ity of tablet 00:00: mouth [place] 00 daily. Medical Branch baclofen 10 2021-0 Yes [id number] 10mg Take 1 [facility] mg tablet 3-11 tablet by ity o f 00:00: mouth at [place] 00 bedtime. Medical Branch clopidogreL 2021-0 Yes [id number] 75mg Take 1 [facility] 75 mg 3-11 tablet by ity of tablet 00:00: mouth [place] 00 daily. Medical Branch atorvastati 0 Yes [id number] 20mg Take 1 [facility] n 20 mg 3-11 tablet by ity of tablet 00:00: mouth at [place] 00 bedtime. Medical Branch lisinopriL 2021-0 Yes [id number] 20mg Take 1 [facility] nivers 20 mg 3-11 tablet by ity of tablet 00:00: mouth 2 [place] 00 (two) Medical times Branch daily. montelukast 0 Yes [id number] 10mg Take 1 [facility] 10 mg 3-11 tablet by ity of tablet 00:00: mouth [place] 00 daily. Medical Branch amLODIPine 0 Yes [id number] 10mg Take 1 [facility] nivers 10 mg 3-11 tablet by ity of tablet 00:00: mouth [place] 00 daily. Medical Branch baclofen 10 0 Yes [id number] 10mg Take 1 [facility] mg tablet 3-11 tablet by ity o f 00:00: mouth at [place] 00 bedtime. Medical Branch clopidogreL 0 Yes [id number] 75mg Take 1 [facility] 75 mg 3-11 tablet by ity of tablet 00:00: mouth [place] 00 daily. Medical Branch atorvastati 0 Yes [id number] 20mg Take 1 [facility] n 20 mg 3-11 tablet by ity of tablet 00:00: mouth at [place] 00 bedtime. Medical Branch lisinopriL 0 Yes [id number] 20mg Take 1 [facility] nivers 20 mg 3-11 tablet by ity of tablet 00:00: mouth 2 00 (two) Medical times Branch daily. montelukast 0 Yes [id number] 10mg Take 1 [facility] 10 mg 3-11 tablet by ity of tablet 00:00: mouth [place] 00 daily. Medical Branch amLODIPine 0 Yes [id number] 10mg Take 1 U nivers 10 mg 3-11 tablet by ity of tablet 00:00: mouth [place] 00 daily. Medical Branch baclofen 10 0 Yes [id number] 10mg Take 1 [facility] mg tablet 3-11 tablet by ity o f 00:00: mouth at [place] 00 bedtime. Medical Branch clopidogreL 2021-0 Yes [id number] 75mg Take 1 [facility] 75 mg 3-11 tablet by ity of tablet 00:00: mouth [place] 00 daily. Medical Branch atorvastati 2022-0 Yes [id number] 20mg Take 1 [facility] n 20 mg 3-11 tablet by ity of tablet 00:00: mouth at [place] 00 bedtime. Medical Branch lisinopriL 2021-0 Yes [id number] 20mg Take 1 [facility] nivers 20 mg 3-11 tablet by ity of tablet 00:00: mouth 2 [place] 00 (two) Medical times Branch daily. montelukast 0 Yes [id number] 10mg Take 1 [facility] 10 mg 3-11 tablet by ity of tablet 00:00: mouth [place] 00 daily. Medical Branch amLODIPine 0 Yes [id number] 10mg Take 1 U nivers 10 mg 3-11 tablet by ity of tablet 00:00: mouth [place] 00 daily. Medical Branch baclofen 10 0 Yes [id number] 10mg Take 1 [facility] mg tablet 3-11 tablet by ity o f 00:00: mouth at [place] 00 bedtime. Medical Branch clopidogreL 0 Yes [id number] 75mg Take 1 [facility] 75 mg 3-11 tablet by ity of tablet 00:00: mouth [place] 00 daily. Medical Branch atorvastati Yes [id number] 20mg Take 1 [facility] n 20 mg 3-11 tablet by ity of tablet 00:00: mouth at [place] 00 bedtime. Medical Branch lisinopriL 0 Yes [id number] 20mg Take 1 U nivers 20 mg 3-11 tablet by ity of tablet 00:00: mouth 2 00 (two) Medical times Branch daily. montelukast 0 Yes [id number] 10mg Take 1 [facility] 10 mg 3-11 tablet by ity of tablet 00:00: mouth [place] 00 daily. Medical Branch amLODIPine 0 Yes [id number] 10mg Take 1 U nivers 10 mg 3-11 tablet by ity of tablet 00:00: mouth [place] 00 daily. Medical Branch baclofen 10 0 Yes [id number] 10mg Take 1 [facility] mg tablet 3-11 tablet by ity o f 00:00: mouth at [place] 00 bedtime. Medical Branch clopidogreL 2021-0 Yes [id number] 75mg Take 1 [facility] 75 mg 3-11 tablet by ity of tablet 00:00: mouth [place] 00 daily. Medical Branch atorvastati 0 Yes [id number] 20mg Take 1 [facility] n 20 mg 3-11 tablet by ity of tablet 00:00: mouth at [place] 00 bedtime. Medical Branch lisinopriL 2021-0 Yes [id number] 20mg Take 1 [facility] nivers 20 mg 3-11 tablet by ity of tablet 00:00: mouth 2 (two) Medical times Branch daily. montelukast 2021-0 Yes [id number] 10mg Take 1 [facility] 10 mg 3-11 tablet by ity of tablet 00:00: mouth 00 daily. Medical Branch lisinopriL 2021-0 Yes [id number] 20mg Take 1 [facility] nivers 20 mg 3-11 tablet by ity of tablet 00:00: mouth 2 (two) Medical times Branch daily. gabapentin 2021-0 Yes [id number] 300mg Take 1 [facility] 300 mg 3-11 capsule by ity of capsule 00:00: mouth 3 (three) Medical times Branch daily. amLODIPine 2021-0 Yes [id number] 10mg Take 1 U nivers 10 mg 3-11 tablet by ity of tablet 00:00: mouth 00 daily. Medical Branch baclofen 10 2021-0 Yes [id number] 10mg Take 1 [facility] mg tablet 3-11 tablet by ity o f 00:00: mouth at 00 bedtime. Medical Branch clopidogreL 2021-0 Yes [id number] 75mg Take 1 [facility] 75 mg 3-11 tablet by ity of tablet 00:00: mouth 00 daily. Medical Branch atorvastati 2021-0 Yes [id number] 20mg Take 1 [facility] n 20 mg 3-11 tablet by ity of tablet 00:00: mouth at [place] 00 bedtime. Medical Branch lisinopriL 2021-0 Yes [id number] 20mg Take 1 [facility] nivers 20 mg 3-11 tablet by ity of tablet 00:00: mouth 2 (two) Medical times Branch daily. montelukast 2021-0 Yes [id number] 10mg Take 1 [facility] 10 mg 3-11 tablet by ity of tablet 00:00: mouth [place] 00 daily. Medical Branch gabapentin 2021-0 Yes [id number] 300mg Take 1 [facility] 300 mg 3-11 capsule by ity of capsule 00:00: mouth 3 (three) Medical times Branch daily. amLODIPine 2021-0 Yes [id number] 10mg Take 1 U nivers 10 mg 3-11 tablet by ity of tablet 00:00: mouth [place] 00 daily. Medical Branch baclofen 10 2021-0 Yes [id number] 10mg Take 1 [facility] mg tablet 3-11 tablet by ity o f 00:00: mouth at [place] 00 bedtime. Medical Branch clopidogreL 2021-0 Yes [id number] 75mg Take 1 [facility] 75 mg 3-11 tablet by ity of tablet 00:00: mouth [place] 00 daily. Medical Branch atorvastati 2021-0 Yes [id number] 20mg Take 1 [facility] n 20 mg 3-11 tablet by ity of tablet 00:00: mouth at [place] 00 bedtime. Medical Branch lisinopriL 2021-0 Yes [id number] 20mg Take 1 [facility] nivers 20 mg 3-11 tablet by ity of tablet 00:00: mouth 2 (two) Medical times Branch daily. montelukast 2021-0 Yes [id number] 10mg Take 1 [facility] 10 mg 3-11 tablet by ity of tablet 00:00: mouth [place] 00 daily. Medical Branch gabapentin 0 Yes [id number] 300mg Take 1 [facility] 300 mg 3-11 capsule by ity of capsule 00:00: mouth 3 00 (three) Medical times Branch daily. amLODIPine 2021-0 Yes [id number] 10mg Take 1 U nivers 10 mg 3-11 tablet by ity of tablet 00:00: mouth [place] 00 daily. Medical Branch baclofen 10 0 Yes [id number] 10mg Take 1 [facility] mg tablet 3-11 tablet by ity o f 00:00: mouth at [place] 00 bedtime. Medical Branch clopidogreL 2021-0 Yes [id number] 75mg Take 1 [facility] 75 mg 3-11 tablet by ity of tablet 00:00: mouth [place] 00 daily. Medical Branch atorvastati 2021-0 Yes [id number] 20mg Take 1 [facility] n 20 mg 3-11 tablet by ity of tablet 00:00: mouth at [place] 00 bedtime. Medical Branch lisinopriL 2021-0 Yes [id number] 20mg Take 1 [facility] nivers 20 mg 3-11 tablet by ity of tablet 00:00: mouth 2 00 (two) Medical times Branch daily. montelukast 2021-0 Yes [id number] 10mg Take 1 [facility] 10 mg 3-11 tablet by ity of tablet 00:00: mouth [place] 00 daily. Medical Branch gabapentin 0 Yes [id number] 300mg Take 1 [facility] 300 mg 3-11 capsule by ity of capsule 00:00: mouth 3 [place] 00 (three) Medical times Branch daily. amLODIPine 0 Yes [id number] 10mg Take 1 U nivers 10 mg 3-11 tablet by ity of tablet 00:00: mouth [place] 00 daily. Medical Branch baclofen 10 0 Yes [id number] 10mg Take 1 [facility] mg tablet 3-11 tablet by ity o f 00:00: mouth at [place] 00 bedtime. Medical Branch clopidogreL 0 Yes [id number] 75mg Take 1 [facility] 75 mg 3-11 tablet by ity of tablet 00:00: mouth [place] 00 daily. Medical Branch atorvastati Yes [id number] 20mg Take 1 [facility] n 20 mg 3-11 tablet by ity of tablet 00:00: mouth at [place] 00 bedtime. Medical Branch lisinopriL 0 Yes [id number] 20mg Take 1 U nivers 20 mg 3-11 tablet by ity of tablet 00:00: mouth 2 [place] 00 (two) Medical times Branch daily. montelukast 0 Yes [id number] 10mg Take 1 [facility] 10 mg 3-11 tablet by ity of tablet 00:00: mouth [place] 00 daily. Medical Branch lisinopriL 0 2022- No [id number] 20mg Take 1 [facility] 20 mg 3-11 - tablet by ity of tablet 00:00: 00:00 mouth 2 [place] 00 :00 (two) Medical times Branch daily. baclofen 10 0 2021- No [id number] 10mg Take 1 [facility] mg tablet 3-11 12-29 tablet by ity of 00:00: 00:00 mouth at [place] 00 :00 bedtime. Medical Branch clopidogreL 0 2021- No [id number] 75mg Take 1 [facility] 75 mg 3-11 12-29 tablet by ity of tablet 00:00: 00:00 mouth [place] 00 :00 daily. Medical Branch amLODIPine 0 2021- No [id number] 10mg Take 1 [facility] 10 mg 3-11 12-28 tablet by ity of tablet 00:00: 00:00 mouth [place] 00 :00 daily. Medical Branch atorvastati 2021- No [id number] 20mg Take 1 [facility] n 20 mg 08-15 tablet by ity of tablet 00:00: 00:00 mouth at [place] 00 :00 bedtime. Medical Branch montelukast 2021- No [id number] 10mg Take 1 [facility] 10 mg 08-15 tablet by ity of tablet 00:00: 00:00 mouth [place] 00 :00 daily. Medical Branch gabapentin 2021- No [id number] 300mg Take 1 [facility] 300 mg 08-15 capsule by ity of capsule 00:00: 00:00 mouth 3 [place] 00 :00 (three) Medical times Branch daily. triamcinolo 2020-06 Yes Apply to Un [place] ne 0.5 % 0-26 area(s) 2 ity of cream 00:00: (two) [place] 00 times Medical daily. Branch triamcinolo 2020-06 Yes Apply to Un [place] 0.5 % 0-26 area(s) 2 ity of cream 00:00: (two) [place] 00 times Medical daily. Branch triamcinolo 2020-06 Yes Apply to Un [place] 0.5 % 0-26 area(s) 2 ity of cream 00:00: (two) [place] 00 times Medical daily. Branch triamcinolo 2020-06 Yes Apply to Un [place] 0.5 % 0-26 area(s) 2 ity of cream 00:00: (two) [place] 00 times Medical daily. Branch triamcinolo 2020-06 [...] [place] 00 times Medical daily. Branch sildenafil 2018-0 Yes [id number] 20mg Take 1 [facility] 20 mg 4-15 tablet by ity of tablet 00:00: mouth [place] 00 daily. Medical Branch sildenafil 2018- Yes [id number] 20mg Take 1 [facility] 20 mg 4-15 tablet by ity of tablet 00:00: mouth [place] 00 daily. Medical Branch sildenafil 2019-0 Yes [id number] 20mg Take 1 [facility] 20 mg 4-15 tablet by ity of tablet 00:00: mouth [place] 00 daily. Medical Branch sildenafil 2018- Yes [id number] 20mg Take 1 [facility] 20 mg 4-15 tablet by ity of tablet 00:00: mouth [place] 00 daily. Medical Branch sildenafil 2018- Yes [id number] 20mg Take 1 [facility] 20 mg 4-15 tablet by ity of tablet 00:00: mouth [place] 00 daily. Medical Branch sildenafil 2019-0 Yes [id number] 20mg Take 1 [facility] 20 mg 4-15 tablet by ity of tablet 00:00: mouth [place] 00 daily. [facility] Branch sildenafil 2019-0 Yes [id number] 20mg Take 1 [facility] 20 mg 4-15 tablet by ity of tablet 00:00: mouth [place] 00 daily. [facility] Branch sildenafil 2019-0 Yes [id number] 20mg Take 1 [facility] 20 mg 4-15 tablet by ity of tablet 00:00: mouth [place] 00 daily. [facility] Branch sildenafil 2019-0 Yes [id number] 20mg Take 1 [facility] 20 mg 4-15 tablet by ity of tablet 00:00: mouth [place] 00 daily. [facility] Branch sildenafil 2019-0 Yes [id number] 20mg Take 1 [facility] 20 mg 4-15 tablet by ity of tablet 00:00: mouth [place] 00 daily. [facility] Branch sildenafil 2019-0 Yes [id number] 20mg Take 1 [facility] 20 mg 4-15 tablet by ity of tablet 00:00: mouth [place] 00 daily. [facility] sildenafil 2019-0 Yes [id number] 20mg Take 1 [facility] 20 mg 4-15 tablet by ity of tablet 00:00: mouth [place] 00 daily. [facility] sildenafil 2019-0 Yes [id number] 20mg Take 1 [facility] 20 mg 4-15 tablet by ity of tablet 00:00: mouth [place] 00 daily. [facility] Branch sildenafil 2019-0 Yes [id number] 20mg Take 1 [facility] 20 mg 4-15 tablet by ity of tablet 00:00: mouth [place] 00 daily. [facility] Branch sildenafil 2019-0 Yes [id number] 20mg Take 1 [facility] 20 mg 4-15 tablet by ity of tablet 00:00: mouth [place] 00 daily. [facility] sildenafil 2019-0 Yes [id number] 20mg Take 1 [facility] 20 mg 4-15 tablet by ity of tablet 00:00: mouth [place] 00 daily. [facility] sildenafil 2019-0 Yes [id number] 20mg Take 1 [facility] 20 mg 4-15 tablet by ity of tablet 00:00: mouth [place] 00 daily. [facility] Branch sildenafil 2019-0 Yes [id number] 20mg Take 1 [facility] 20 mg 4-15 tablet by ity of tablet 00:00: mouth [place] 00 daily. [facility] sildenafil 2019-0 Yes [id number] 20mg Take 1 [facility] 20 mg 4-15 tablet by ity of tablet 00:00: mouth [place] 00 daily. [facility] sildenafil 2019-0 Yes [id number] 20mg Take 1 [facility] 20 mg 4-15 tablet by ity of tablet 00:00: mouth [place] 00 daily. [facility] sildenafil 2019-0 Yes [id number] 20mg Take 1 [facility] 20 mg 4-15 tablet by ity of tablet 00:00: mouth [place] 00 daily. [facility] Branch sildenafil 2019-0 Yes [id number] 20mg Take 1 [facility] 20 mg 4-15 tablet by ity of tablet 00:00: mouth [place] 00 daily. [facility] sildenafil 2019-0 Yes [id number] 20mg Take 1 [facility] 20 mg 4-15 tablet by ity of tablet 00:00: mouth [place] 00 daily. [facility] sildenafil 2019-0 Yes [id number] 20mg Take 1 [facility] 20 mg 4-15 tablet by ity of tablet 00:00: mouth [place] 00 daily. [facility] sildenafil 2019-0 Yes [id number] 20mg Take 1 [facility] 20 mg 4-15 tablet by ity of tablet 00:00: mouth [place] 00 daily. [facility] sildenafil 2019-0 Yes [id number] 20mg Take 1 [facility] 20 mg 4-15 tablet by ity of tablet 00:00: mouth [place] 00 daily. [facility] Branch fluticasone 2017- Yes [id number] 2{spray Use 2 [facility] (FLONASE) 6-04 } Sprays in ity o f 50 00:00: each [place] mcg/actuati 00 nostril Medic al on nasal daily. Branch spray fluticasone 2017- Yes [id number] 2{spray Use 2 [facility] (FLONASE) 6-04 } Sprays in ity o f 50 00:00: each [place] mcg/actuati 00 nostril Medic al on nasal daily. Branch spray fluticasone 2017- Yes [id number] 2{spray Use 2 [facility] (FLONASE) 6-04 } Sprays in ity o f 50 00:00: each [place] mcg/actuati 00 nostril Medic al on nasal daily. Branch spray fluticasone 2017- Yes [id number] 2{spray Use 2 [facility] (FLONASE) 6-04 } Sprays in ity o f 50 00:00: each [place] mcg/actuati 00 nostril Medic al on nasal daily. Branch spray fluticasone 2017- Yes [id number] 2{spray Use 2 [facility] (FLONASE) 6-04 } Sprays in ity o f 50 00:00: each [place] mcg/actuati 00 nostril Medic al on nasal daily. Branch spray fluticasone 2017-0 Yes [id number] 2{spray Use 2 [facility] (FLONASE) 6-04 } Sprays in ity o f 50 00:00: each [place] mcg/actuati 00 nostril Medic al on nasal daily. Branch spray fluticasone 2017- Yes [id number] 2{spray Use 2 [facility] (FLONASE) 6-04 } Sprays in ity o f 50 00:00: each [place] mcg/actuati 00 nostril Medic al on nasal daily. Branch spray fluticasone 2017- Yes [id number] 2{spray Use 2 [facility] (FLONASE) 6-04 } Sprays in ity o f 50 00:00: each [place] mcg/actuati 00 nostril Medic al on nasal daily. Branch spray fluticasone 2017- Yes [id number] 2{spray Use 2 [facility] (FLONASE) 6-04 } Sprays in ity o f 50 00:00: each [place] mcg/actuati 00 nostril Medic al on nasal daily. Branch spray fluticasone 2017- Yes [id number] 2{spray Use 2 [facility] (FLONASE) 6-04 } Sprays in ity o f 50 00:00: each [place] mcg/actuati 00 nostril Medic al on nasal daily. Branch spray fluticasone 2017- Yes [id number] 2{spray Use 2 [facility] (FLONASE) 6-04 } Sprays in ity o f 50 00:00: each [place] mcg/actuati 00 nostril Medic al on nasal daily. Branch spray fluticasone 2017- Yes [id number] 2{spray Use 2 [facility] (FLONASE) 6-04 } Sprays in ity o f 50 00:00: each [place] mcg/actuati 00 nostril Medic al on nasal daily. Branch spray fluticasone 2017- Yes [id number] 2{spray Use 2 [facility] (FLONASE) 6-04 } Sprays in ity o f 50 00:00: each [place] mcg/actuati 00 nostril Medic al on nasal daily. Branch spray fluticasone 2017- Yes [id number] 2{spray Use 2 [facility] (FLONASE) 6-04 } Sprays in ity o f 50 00:00: each [place] mcg/actuati 00 nostril Medic al on nasal daily. Branch spray fluticasone 2017- Yes [id number] 2{spray Use 2 [facility] (FLONASE) 6-04 } Sprays in ity o f 50 00:00: each [place] mcg/actuati 00 nostril Medic al on nasal daily. Branch spray fluticasone 2017- Yes [id number] 2{spray Use 2 [facility] (FLONASE) 6-04 } Sprays in ity o f 50 00:00: each [place] mcg/actuati 00 nostril Medic al on nasal daily. Branch spray fluticasone 2017- Yes [id number] 2{spray Use 2 [facility] (FLONASE) 6-04 } Sprays in ity o f 50 00:00: each [place] mcg/actuati 00 nostril Medic al on nasal daily. Branch spray fluticasone 2017- Yes [id number] 2{spray Use 2 [facility] (FLONASE) 6-04 } Sprays in ity o f 50 00:00: each [place] mcg/actuati 00 nostril Medic al on nasal daily. Branch spray fluticasone 2017- Yes [id number] 2{spray Use 2 [facility] (FLONASE) 6-04 } Sprays in ity o f 50 00:00: each [place] mcg/actuati 00 nostril Medic al on nasal daily. Branch spray fluticasone 2017- Yes [id number] 2{spray Use 2 [facility] (FLONASE) 6-04 } Sprays in ity o f 50 00:00: each [place] mcg/actuati 00 nostril Medic al on nasal daily. Branch spray fluticasone 2017-0 Yes [id number] 2{spray Use 2 [facility] (FLONASE) 6-04 } Sprays in ity o f 50 00:00: each [place] mcg/actuati 00 nostril Medic al on nasal daily. Branch spray fluticasone 2017- Yes [id number] 2{spray Use 2 [facility] (FLONASE) 6-04 } Sprays in ity o f 50 00:00: each [place] mcg/actuati 00 nostril Medic al on nasal daily. Branch spray fluticasone Yes [id number] 2{spray Use 2 [facility] (FLONASE) 6-04 } Sprays in ity o f 50 00:00: each [place] mcg/actuati 00 nostril Medic al on nasal daily. Branch spray fluticasone Yes [id number] 2{spray Use 2 Univers (FLONASE) 6-04 } Sprays in ity o f 50 00:00: each [place] mcg/actuati 00 nostril Medic al on nasal daily. Branch spray fluticasone Yes [id number] 2{spray Use 2 Univers (FLONASE) 6-04 } Sprays in ity o f 50 00:00: each [place] mcg/actuati 00 nostril Medic al on nasal daily. Branch spray fluticasone Yes [id number] 2{spray Use 2 Univers (FLONASE) 6-04 } [...] Medical once Branch before breakfast blood sugar 2017 Yes E11.9, use Univers diagnostic 03-04 to [...] 2017 Yes E11.9, use Univ ers Misc 9 [...] 00 glucose Medical once Branch before breakfast Lancets Yes E11.9, use Univ ers Misc 928 to check ity of 00:00: blood [place] 00 glucose Medical once Branch before breakfast Lancets Yes E11.9, use Univ ers Misc 928 to check ity of 00:00: blood [place] 00 glucose Medical once Branch before breakfast Lancets Yes E11.9, [...] Medical once Branch before breakfast blood sugar 2022- No E11.9, use Univers diagnostic 03-04 to check ity of (BLOOD 00:00: 00:00 blood [place] GLUCOSE 00 :00 glucose Medical TEST) strip once Branch before breakfast blood sugar 2022- No E11.9, use Univers diagnostic 28 11-19 to check ity of (BLOOD 00:00: 00:00 blood [place] GLUCOSE 00 :00 glucose Medical TEST) strip once Branch before breakfast Blood-Gluco Yes E11.9, [...] Immunizations Ordered Filled Immunization Date Status Comments [facility] e Immunization Name Name SARS-COV-2 COVID-19 2020-09-03 Completed Unive rsity of MODERNA VACCINE 00:00:[address] [facility] [place] [place] SARS-COV-2 COVID-19 2020-09-03 Completed Unive rsity of MODERNA VACCINE 00:00:[address] [facility] [place] [place] SARS-COV-2 COVID-19 2020-09-03 Completed Unive rsity of MODERNA VACCINE 00:00:[address] [facility] [place] [place] SARS-COV-2 COVID-19 2020-09-03 Completed Unive rsity of MODERNA VACCINE 00:00:[address] [facility] [place] SARS-COV-2 COVID-19 2020-09-03 Completed Unive rsity of [...] 00:00:00 [place] Med ical Branch SARS-COV-2 COVID-19 2020-08-09 Completed Unive rsity of MODERNA VACCINE 00:00:00 [place] Med ical Branch SARS-COV-2 COVID-19 2020-08-09 Completed Unive rsity of MODERNA VACCINE 00:00:00 [place] Med ical Branch SARS-COV-2 COVID-19 2020-08-09 Completed Unive rsity of MODERNA VACCINE 00:00:00 [place] Med ical Branch SARS-COV-2 COVID-19 2020-08-09 Completed Unive [...] Unive rsity of MODERNA 12+ YRS 00:00:00 [facility] [place] [facility] ical VACCINE Branch SARS-COV-2 COVID-19 2020-08-09 Completed Unive rsity of MODERNA VACCINE 00:00:00 [facility] [place] [facility] ical Branch SARS-COV-2 COVID-19 2020-08-09 Completed Unive rsity of MODERNA VACCINE 00:00:00 [facility] [place] [facility] ical Branch SARS-COV-2 COVID-19 2020-08-09 Completed Unive rsity of MODERNA VACCINE 00:00:00 [facility] [place] [facility] ica Branch SARS-COV-2 COVID-19 2020-08-09 Completed Unive rsity of MODERNA VACCINE 00:00:[address] [facility] [place] [place] TDAP 2016-09-10 Completed University of 00:00:00 [facility] TDAP 2016-09-10 Completed University of 00:00:00 [facility] TDAP 2016-09-10 Completed University of 00:00:00 [facility] TDAP 2016-09-10 Completed University of 00:00:00 [facility] TDAP 2016-09-10 Completed University of 00:00:00 [facility] TDAP 2016-09-10 Completed University of 00:00:00 [facility] TDAP 2016-09-10 Completed University of 00:00:00 [facility] TDAP 2016-09-10 Completed University of 00:00:00 [facility] TDAP 2016-09-10 Completed University of 00:00:00 [facility] TDAP 2016-09-10 Completed University of 00:00:00 [facility] TDAP 2016-09-10 Completed University of 00:00:00 [facility] TDAP 2016-09-10 Completed University of 00:00:00 [facility] TDAP 2016-09-10 Completed University of 00:00:00 [facility] TDAP 2016-09-10 Completed University of 00:00:00 [facility] TDAP 2016-09-10 Completed University of 00:00:00 [facility] TDAP 2016-09-10 Completed University of 00:00:00 [facility] TDAP 2016-09-10 Completed University of 00:00:00 [facility] TDAP 2016-09-10 Completed University of 00:00:00 [facility] TDAP 2016-09-10 Completed University of 00:00:00 [facility] TDAP 2016-09-10 Completed University of 00:00:00 [facility] TDAP 2016-09-10 Completed University of 00:00:00 [facility] TDAP 2016-09-10 Completed University of 00:00:00 [facility] TDAP 2016-09-10 Completed University of 00:00:00 [facility] TDAP 2016-09-10 Completed University of 00:00:00 [facility] TDAP 2016-09-10 Completed University of 00:00:00 [facility] TDAP 2016-09-10 Completed University of 00:00:00 [facility] Vital Signs Vital Name Observation Time Observation Value Comments Source Systolic blood 2022-10-01 21:14:00 133 mm[Hg] Univer sity of pressure [facility] Diastolic blood 2022-10-01 21:14:00 69 mm[Hg] Unive rsity of [facility] Heart rate 2022-10-01 21:14:00 60 /min [facility] Body temperature 2022-10-01 21:14:00 36.72 [facility] [place] [facility] Body height 2022-10-01 21:14:00 186.7 cm [facility] Body weight 2022-10-01 21:14:00 80.74 kg [facility] BMI 2022-10-01 21:14:00 23.17 kg/m2 [facility] Oxygen saturation in 2022-10-01 21:14:00 98 /min [facility] Arterial blood by [facility] Pulse oximetry Branch Systolic blood 2022-04-13 19:19:00 137 mm[Hg] Univer sity of pressure [facility] Diastolic blood 2022-04-13 19:19:00 73 mm[Hg] Unive rsity of pressure [facility] Heart rate 2022-04-13 19:18:00 67 /min [facility] Body temperature 2022-04-13 19:18:00 36.83 Lilly Univ ersity of [facility] Body height 2022-04-13 19:18:00 185.4 cm Universi ty of [facility] Body weight 2022-04-13 19:18:00 80.287 kg Universi ty of [facility] BMI 2022-04-13 19:18:00 23.35 kg/m2 Universi ty of [facility] Branch Oxygen saturation in 2022-04-13 19:18:00 97 /min University Arterial blood by [facility] Pulse oximetry Branch Systolic blood 2022-03-06 20:43:00 138 mm[Hg] Univer sity of pressure [facility] Diastolic blood 2022-03-06 20:43:00 80 mm[Hg] Unive rsity of pressure [facility] Heart rate 2022-03-06 20:43:00 74 /min [facility] Body temperature 2022-03-06 20:43:00 36.11 Lilly Univ ersity of [facility] Respiratory rate 2022-03-06 20:43:00 18 /min Univ ersity of [facility] Body weight 2022-03-06 20:43:00 80.287 kg Universi ty of [facility] BMI 2022-03-06 20:43:00 23.35 kg/m2 Universi ty of [facility] Systolic blood 2021-08-27 13:47:00 133 mm[Hg] Univer sity of pressure [facility] Diastolic blood 2021-08-27 13:47:00 81 mm[Hg] Unive rsity of pressure [facility] Heart rate 2021-08-27 13:47:00 68 /min Universi ty of [facility] Body temperature 2021-08-27 13:47:00 36.78 Lilly Univ ersity of [facility] Respiratory rate 2021-08-27 13:47:00 16 /min Univ ersity of [facility] Body height 2021-08-27 13:47:00 185.4 cm Universi ty of [facility] Body weight 2021-08-27 13:47:00 85.095 kg Universi ty of [facility] BMI 2021-08-27 13:47:00 24.75 kg/m2 Universi ty of [facility] Oxygen saturation in 2021-08-27 13:47:00 100 /min University of Arterial blood by [facility] Pulse oximetry Branch Procedures Procedure Date / Time Performing Clinician Source Performed ASSIGNMENT OF BENEFITS 2022-04-13 19:07:05 Doctor Unassigned, No [facility] Name Medical Branch FREE T4 2022-03-06 21:07:00 Ion Vogel [facility] THYROID STIMULATING 2022-03-06 21:07:00 Ion Vogel [facility] HORMONE Medical Branch COMP. METABOLIC PANEL 2022-03-06 21:07:00 Ion Vogel [facility] ([id number]) Medical Branch LIPID PANEL 2022-03-06 21:07:00 Ion Vogel [facility] ([id number])(TOTAL Medical Branch CHOLESTEROL, TRIGLYCERIDES, HDL) CBC WITH DIFF 2022-03-06 21:07:00 Ion Vogel [facility] GLYCOSYLATED HEMOGLOBIN 2022-03-06 21:07:00 Ion Vogel [facility] (A1C) [facility] Branch Encounters Start End Encounter Admission Attending Care Care Encounter Source Date/Time Date/Time Type Type Clinicians Facility Department ID 2022-11-20 2022-11-20 Telephone [facility] [id number] Univers 00:00:00 00:00:00 [place] [facility] 350.1.13.10 ity of [place] 4.2.7.2.686 [place] as ELIEZER?BLEA [id number] [address] MEDICAL OFFICE [facility] 2022-11-18 2022-11-18 Refill [facility] 1.2.840.114 [id number] Univers 00:00:00 00:00:00 [facility] 350.1.13.10 ity of [place] 4.2.7.2.686 David as ELIEZER?BLEA [id number] [address] MEDICAL OFFICE BUILDING 2022-11-14 2022-11-14 Refill [facility] 1.2.840.114 [id number] Univers 00:00:00 00:00:00 [place] [facility] 350.1.13.10 ity of [place] 4.2.7.2.686 David as ELIEZER?BLEA [id number] [address] OFFICE BUILDING 2022-10-22 2022-10-22 [facility] 1.2.840.114 [id number] Univers 00:00:00 00:00:00 [facility] 350.1.13.10 [facility] 4.2.7.2.686 [place] as ELIEZER?BLEA [id number] [address] OFFICE [facility] 2022-10-01 2022-10-01 [facility], Ang - Db [facility] 1.2.840.1 [id number] Univers 15:45:00 17:09:29 Visit Elijah [facility] 350.1.13.10 ity of [place] 4.2.7.2.686 [place] as ELIEZER?BLEA [id number] [facility] [address] [facility] OFFICE [facility] 2022-10-01 2022-10-01 Office [facility] 1.2.840.114 [id number] Univers 16:20:00 17:00:00 Visit [facility] 350.1.13.10 [facility] 4.2.7.2.686 [place] as ELIEZER?BLEA [id number] [address] OFFICE [facility] 2022-10-01 2022-10-01 Outpatient R TRICIA NAVA [facility] [id number] Univers 15:45:00 15:45:00 TRICIA NAVA [facility] [place] [facility] 2022-09-03 2022-09-03 Outpatient R TRICIA NAVA [facility] [id number] Univers 16:20:00 16:20:00 ELIJAH TRICIA [facility] [place] [facility] 2022-08-15 2022-08-15 Ion Vincent 1.2.840.114 [id number] Univers 00:00:00 00:00:00 Y PEDIATRIC 350.1.13.10 [place] [id number] [place] [address] Branch [facility] 2022-08-04 2022-08-04 Ion Vincent 1.2.840.114 [id number] Univers 00:00:00 00:00:00 Y PEDIATRIC 350.1.13.10 [place] [id number] [address] 2022-07-14 2022-07-14 Reftyler [facility] 1.2.840.114 [id number] Univers 00:00:00 00:00:00 [facility] 350.1.13.10 ity of [place] 4.2.7.2.686 David as ELIEZER?BLEA [id number] [address] OFFICE [facility] 2022-07-13 2022-07-13 [facility] 1.2.840.114 [id number] Univers 00:00:00 00:00:00 [facility] 350.1.13.10 ity of [place] 4.2.7.2.686 David as ELIEZER?BLEA [id number] [address] 2022-07-01 2022-07-01 Ion Vincent 1.2.840.114 [id number] Univers 00:00:00 00:00:00 Y PEDIATRIC 350.1.13.10 [place] [id number] [address] 2022-06-03 2022-06-03 Ion Vincent 1.2.840.114 [id number] Univers 00:00:00 00:00:00 Y PEDIATRIC 350.1.13.10 [place] [id number] [address] 2022-04-13 2022-04-13 Outpatient R ELIJAH [facility] [id number] Univers 13:00:00 13:55:28 [facility] 2022-04-13 2022-04-13 Office [facility] 1.2.840.114 [id number] Univers 13:00:00 13:55:28 Visit [facility] 350.1.13.10 ity of [place] 4.2.7.2.686 David as ELIEZER?BLEA [id number] Az mahad VILLA [address] [place] [address] MEDICAL OFFICE BUILDING 2022-04-13 2022-04-13 Orders Doctor FARHAD 1.2.840.114 [id number] Univers 00:00:00 00:00:00 Only Unassigned, VIDAL 350.1.13.10 ity of [facility] 4.2.7.2.686 David as [id number] [address] 2022-03-06 2022-03-06 Office Ion Vogel 1.2.840.114 [id number] Univers 16:15:00 16:15:00 Visit Y PEDIATRIC 350.1.13.10 [place] [id number] [address] 2022-03-06 2022-03-06 Outpatient R ION VOGEL [facility] [id number] Univers 16:15:00 16:03:24 ity of [facility] 2022-03-06 2022-03-06 RefIon Beatty 1.2.840.114 [id number] Univers 00:00:00 00:00:00 Y PEDIATRIC 350.1.13.10 [place] [id number] [address] 2021-12-02 2021-12-02 Telephone Ion Vogel 1.2.840.114 [id number] Univers 00:00:00 00:00:00 Y PEDIATRIC 350.1.13.10 [place] [id number] [address] 2021-12-01 2021-12-01 Ion Vincent 1.2.840.114 [id number] Univers 00:00:00 00:00:00 Y PEDIATRIC 350.1.13.10 [place] [id number] [address] 2021-12-01 2021-12-01 RefIon Beatty 1.2.840.114 [id number] Univers 00:00:00 00:00:00 Y PEDIATRIC 350.1.13.10 [place] [id number] [address] 2021-11-04 2021-11-04 Outpatient ION ROCHA [facility] [id number] Univers 11:00:00 11:00:00 ity of [facility] 2021-10-01 2021-10-01 Refill Ion Vogel 1.2.840.114 [id number] Univers 00:00:00 00:00:00 Y PEDIATRIC 350.1.13.10 [place] [id number] [address] 2021-09-18 2021-09-18 Telephone Ion Vogel 1.2.840.114 [id number] Univers 00:00:00 00:00:00 Y PEDIATRIC 350.1.13.10 [place] [id number] [address] 2021-08-27 2021-08-27 Office Ion Vogel 1.2.840.114 [id number] Univers 08:45:00 09:07:33 Visit Y PEDIATRIC 350.1.13.10 [place] [id number] [address] 2021-08-27 2021-08-27 Outpatient ION ROCHA [facility] [id number] Univers 08:45:00 09:07:33 ity of [facility] 2021-08-27 2021-08-27 Outpatient ION ROCHA [facility] [id number] Univers 08:45:00 08:45:00 ity of [facility] 2021-08-19 2021-08-19 Telephone Ion Vogel 1.2.840.114 [id number] Univers 00:00:00 00:00:00 Y PEDIATRIC 350.1.13.10 [place] [id number] [place] [address] Branch [facility] 2021-08-14 2021-08-14 Ion Vincent 1.2.840.114 [id number] Univers 00:00:00 00:00:00 Y PEDIATRIC 350.1.13.10 [place] [id number] [place] [address] Branch [facility] 2021-08-11 2021-08-11 Telephone Ion Vogel 1.2.840.114 [id number] Univers 00:00:00 00:00:00 Y PEDIATRIC 350.1.13.10 [place] [id number] [address] 2021-08-05 2021-08-05 Ion Carter 1.2.840.114 [id number] Univers 00:00:00 00:00:00 Y PEDIATRIC 350.1.13.10 [place] [id number] [address] 2021-08-04 2021-08-04 Outpatient ION ROCHA [facility] [id number] Univers 14:00:00 14:00:00 ity of [facility] 2021-08-01 2021-08-01 Ion Carter 1.2.840.114 [id number] Univers 00:00:00 00:00:00 Y PEDIATRIC 350.1.13.10 [place] [id number] [place] [address] Branch [facility] 2021-07-28 2021-07-28 Ion Vincent 1.2.840.114 [id number] Univers 00:00:00 00:00:00 Y PEDIATRIC 350.1.13.10 [place] [id number] [place] [address] Branch [facility] 2021-07-28 2021-07-28 Ion Vincent 1.2.840.114 [id number] Univers 00:00:00 00:00:00 Y PEDIATRIC 350.1.13.10 [place] [id number] [address] 2021-06-26 2021-06-26 Orders Doctor FARHAD 1.2.840.114 [id number] Univers 00:00:00 00:00:00 Only Unassigned, VIDAL 350.1.13.10 ity of [place] [facility] 4.2.7.2.686 David as [id number] [address] 2021-06-10 2021-06-10 Telephone Ion Vogel 1.2.840.114 [id number] Univers 00:00:00 00:00:00 Y PEDIATRIC 350.1.13.10 [place] [id number] [address] 2021-06-04 2021-06-04 Refill Ion Vogel 1.2.840.114 [id number] Univers 00:00:00 00:00:00 Y PEDIATRIC 350.1.13.10 [place] [id number] [address] 2021-06-04 2021-06-04 Telephone Ion Vogel 1.2.840.114 [id number] Univers 00:00:00 00:00:00 Y PEDIATRIC 350.1.13.10 [place] [id number] [address] 2021-05-20 2021-05-20 Orders Doctor FARHAD 1.2.840.114 [id number] Univers 00:00:00 00:00:00 Only Unassigned, VIDAL 350.1.13.10 ity of [facility] [facility] 4.2.7.2.686 David as [id number] [address] 2021-05-19 2021-05-19 Telephone Ion Vogel 1.2.840.114 [id number] Univers 00:00:00 00:00:00 Y PEDIATRIC 350.1.13.10 [place] [id number] [place] [address] Branch [facility] 2021-05-05 2021-05-05 Outpatient R ION VOGEL [facility] [id number] [facility] 14:00:00 15:53:13 ity of [facility] 2021-05-05 2021-05-05 Office Ion Vogel 1.2.840.114 [id number] Univers 13:24:50 15:53:13 Visit Y PEDIATRIC 350.1.13.10 [place] [id number] [address] 2021-05-05 2021-05-05 Outpatient R ION VOGEL [facility] [id number] Univers 14:00:00 14:00:00 ity of [facility] 2021-04-25 2021-04-25 Telephone Ion Vogel 1.2.840.114 [id number] Univers 00:00:00 00:00:00 Y PEDIATRIC 350.1.13.10 [place] [id number] [address] 2021-04-24 2021-04-24 Telephone Ion Vogel 1.2.840.114 [id number] Univers 00:00:00 00:00:00 Y PEDIATRIC 350.1.13.10 [place] [id number] [place] [address] [place] [facility] 2021-04-21 2021-04-21 Telephone Ion Vogel 1.2.840.114 [id number] Univers 00:00:00 00:00:00 Y PEDIATRIC 350.1.13.10 [place] [id number] [place] [address] [place] [facility] 2021-04-21 2021-04-21 Telephone Ion Vogel 1.2.840.114 [id number] Univers 00:00:00 00:00:00 Y PEDIATRIC 350.1.13.10 [place] [id number] [address] 2021-04-17 2021-04-17 Outpatient R ION VOGEL [facility] [id number] Univers 10:00:00 10:22:47 ity of [facility] 2021-04-17 2021-04-17 Office Ion Vogel 1.2.840.114 [id number] Univers 09:31:06 10:22:47 Visit Y PEDIATRIC 350.1.13.10 [place] [id number] [address] 2021-04-17 2021-04-17 Orders Ion Vogel 1.2.840.114 [id number] Univers 00:00:00 00:00:00 Only Y VIDAL 350.1.13.10 it y of [facility] 4.2.7.2.686 David as [id number] [address] 2021-04-16 2021-04-16 [facility] [id number] Univers 13:00:00 13:00:00 JEWELL ity [facility] 2021-04-16 2021-04-16 Telephone Ion Vogel 1.2.840.114 [id number] Univers 00:00:00 00:00:00 Y PEDIATRIC 350.1.13.10 [place] [id number] [place] [address] [address] [facility] 2021-03-31 2021-03-31 Refill Ion Vogel 1.2.840.114 [id number] Univers 00:00:00 00:00:00 Y Pediatric 350.1.13.10 [place] [id number] [address] 2021-03-28 2021-03-28 Telephone Ion Vogel 1.2.840.114 [id number] Univers 00:00:00 00:00:00 Y Pediatric 350.1.13.10 it[place]2.[place] [id number] [address] 2021-03-28 2021-03-28 Telephone Ion Vogel 1.2.840.114 [id number] Univers 00:00:00 00:00:00 Y Pediatric 350.1.13.10 ity [place]2.[place] [id number] [address] 2021-03-27 2021-03-27 Office Ion Vogel 1.2.840.114 [id number] Univers 14:42:10 15:43:28 Visit Y Pediatric 350.1.13.10 ity [place].2.[place] [id number] [address] 2021-03-27 2021-03-27 Outpatient ION ROCHA [facility] [id number] Univers 14:45:00 14:45:00 ity of [facility] 2021-03-27 2021-03-27 Orders Doctor FARHAD 1.2.840.114 [id number] Univers 00:00:00 00:00:00 Only Unassigned, VIDAL 350.1.13.10 ity of [facility] [facility] 4.2.7.2.686 David as [id number] [address] 2021-03-21 2021-03-21 Inpatient EM Genevieve, NAVICL AERS [id number] [facility] 02:58:00 07:32:00 Wilfredo Coyle [facility] 2019-08-21 2019-08-21 Outpatient ION ROCHA [facility] [id number] Univers 09:00:00 09:00:00 ity of [facility] 2019-08-09 2019-08-09 Refill Ion Vogel 1Gio2.840.114 [id number] Univers 00:00:00 00:00:00 Y Pediatric 350.1.13.10 [place] [id number] [place] [address] [facility] Results Test Description Test Time Test Comments Results Result Comments Source GLYCOSYLATED HEMOGLOBIN (A1C) 2022-03-07 06:29:32 Test Item Value Reference Range Interpretation Comme nts HGB A1C (test code = 4548-4) 5.7 % 4-5.7 JUAN CARLOS (test code = JUAN CARLOS) Reference RangesNormal: <5.7%Prediabetes: 5.7 - 6.4%Diabetes: > 6.5% Lab Interpretation (test code = 44465-3) Normal [facility]2022-03-07 06:29:32 Test Item Value Reference Range Interpretation Comments HGB A1C (test code = 5.7 % 4-5.7 4548-4) JUAN CARLOS (test code = JUAN CARLOS) Reference RangesNormal: <5.7%Prediabetes: 5.7 - 6.4%Diabetes: > 6.5% Lab Interpretation (test Normal code = 41414-3) [facility] [id number] 06:06:49 Test Item Value Reference Range Interpretation Comments TSH (test code = See_Comment [Automated message] [id number]) The system [employer] generated this result transmitted ref erence range: 0.45 - 4 .70 mIU/L. The refe rence range was not u sed to interpret this result as normal/abnor mal. Lab Interpretation (test Normal code = 77168-7) [facility] [place] [id number] 06:06:49 Test Item Value Reference Range Interpretation Comments TSH (test code = See_Comment [Automated message] [id number]) The system [employer] generated this result transmitted ref erence range: 0.45 - 4 .70 mIU/L. The refe rence range was not u sed to interpret this result as normal/abnor mal. Lab Interpretation (test Normal code = 59536-0) [facility] [place] [id number] 05:52:47 Test Item Value Reference Range Interpretation Comments FREE T4 (test code = See_Comment [Autom ated message] [id number]) The system [employer] generated this result transmitted ref erence range: 0.78 - 2 .20 ng/dL:. The ref erence range was not u sed to interpret this result as normal/abnor mal. Lab Interpretation (test Normal code = 26341-9) [facility] [id number] 05:52:47 Test Item Value Reference Range Interpretation Comments FREE T4 (test code = See_Comment [Autom ated message] [id number]) The system [employer] generated this result transmitted ref erence range: 0.78 - 2 .20 ng/dL:. The ref erence range was not u sed to interpret this result as normal/abnor mal. Lab Interpretation (test Normal code = 36794-3) [facility]. METABOLIC PANEL ([id number])2022-03-07 05:51:06 Test Item Value Reference Range Interpretation Comments NA (test code = 143 mmol/L 135-145 2240832560) K (test code = 4.1 mmol/L 3.5-5 5635756282) CL (test code = 106 mmol/L 98-108 1977952034) CO2 TOTAL (test code 26 mmol/L 23-31 = 2958016325) AGAP (test code = 2-16 1195049918) BUN (test code = 13 mg/dL 7-23 7817774757) GLUCOSE (test code = 85 mg/dL 70-110 1259840841) CREATININE (test code 0.77 mg/dL 0.6-1.25 = 2204506776) TOTAL BILI (test code 0.6 mg/dL 0.1-1.1 = 4973874191) CALCIUM (test code = 9.3 mg/dL 8.6-10.6 4712467171) T PROTEIN (test code 7.3 g/dL 6.3-8.2 = 8124354194) ALBUMIN (test code = 4.5 g/dL 3.5-5 5956261793) ALK PHOS (test code = 90 U/L 34-122 7599192434) ALTv (test code = 34 U/L 5-50 1742-6) AST(SGOT) (test code 32 U/L 13-40 = 2247587514) eGFR (test code = mL/min/1.73m2 8878306562) JUAN CARLOS (test code = JUAN CARLOS) [...] or urine or abnormalities in imaging tests). [id number]TOTAL CHOLESTEROL, TRIGLYCERIDES, HDL)2022-03-07 05:51:06 Test Item Value Reference Range Interpretation Comments CHOL (test code = 129 mg/dL 120-200 2849071455) HDL (test code = 43 mg/dL See_Comment [Automated message] 1874740628) The system [employer] generated this result transmit blue reference range : >=40. The refer ence range was not u sed to interpret th is result as normal/abnormal . HDLC RATIO (test code = See_Comment [Au tomated message] 4085047782) The system [employer] generated this result transmit blue reference range : <=5.0. The refe rence range was not u sed to interpret th is result as normal/abnormal . TRIG (test code = 68 mg/dL 30-170 1467771979) LDL CHOL (test code = 72 mg/dL See_Comment [Auto mated message] 66539-4) The system [employer] generated this result transmit blue reference range : <=160. The refe rence range was not u sed to interpret th is result as normal/abnormal . VLDL (test code = 14 mg/dL 5-60 1071003374) Lab Interpretation (test Normal code = 87228-7) [facility]. METABOLIC PANEL ([id number])2022-03-07 05:51:06 Test Item Value Reference Range Interpretation Comments NA (test code = 143 mmol/L 135-145 5174157607) K (test code = 4.1 mmol/L 3.5-5 4909392323) CL (test code = 106 mmol/L 98-108 8449886695) CO2 TOTAL (test code 26 mmol/L 23-31 = 0626049427) AGAP (test code = 2-16 8904079967) BUN (test code = 13 mg/dL 7-23 6388013102) GLUCOSE (test code = 85 mg/dL 70-110 6327620269) CREATININE (test code 0.77 mg/dL 0.6-1.25 = 1549388278) TOTAL BILI (test code 0.6 mg/dL 0.1-1.1 = 9176113118) CALCIUM (test code = 9.3 mg/dL 8.6-10.6 8455294425) T PROTEIN (test code 7.3 g/dL 6.3-8.2 = 0685559315) ALBUMIN (test code = 4.5 g/dL 3.5-5 2935188050) ALK PHOS (test code = 90 U/L 34-122 0168915473) ALTv (test code = 34 U/L 5-50 1742-6) AST(SGOT) (test code 32 U/L 13-40 = 0603041829) eGFR (test code = mL/min/1.73m2 7835061244) JUAN CARLOS (test code = JUAN CARLOS) [...] or urine or abnormalities in imaging tests). [facility] [place] (19838)(TOTAL CHOLESTEROL, TRIGLYCERIDES, HDL)2022-03-07 05:51:06 Test Item Value Reference Range Interpretation Comments CHOL (test code = 129 mg/dL 120-200 3088036783) HDL (test code = 43 mg/dL See_Comment [Automated message] 8195148484) The system [employer] generated this result transmit blue reference range : >=40. The refer ence range was not u sed to interpret th is result as normal/abnormal . HDLC RATIO (test code = See_Comment [Au tomated message] 8218538041) The system [employer] generated this result transmit blue reference range : <=5.0. The refe rence range was not u sed to interpret th is result as normal/abnormal . TRIG (test code = 68 mg/dL 30-170 2970472827) LDL CHOL (test code = 72 mg/dL See_Comment [Auto mated message] 71608-3) The system [employer] generated this result transmit blue reference range : <=160. The refe rence range was not u sed to interpret th is result as normal/abnormal . VLDL (test code = 14 mg/dL 5-60 6818673019) Lab Interpretation (test Normal code = 77875-5) [facility] WITH [id number] 05:03:23 Test Item Value Reference Range Interpretation [...] RDW-SD (test code = 48.6 fL 38.5-51.6 65752-6) RDW-CV (test code = 13.7 % 12.1-15.4 788-0) PLT (test code = See_Comment [Automated 777-3) message] The sy stem which generated this result transmitted reference range : 150 - 328 10*3/ ?L. The reference r azam was not used to interpret this result as normal/abnormal . MPV (test code = 10.3 fL 9.8-13 99051-6) NRBC/100 WBC (test See_Comment [Automat ed code = 6674354233) message] The system which generated this result transmitted reference range : 0.0 - 10.0 /100 WBCs. The refer ence range was not u sed to interpret th is result as normal/abnormal . NRBC x10^3 (test code See_Comment [Auto mated = 8684250385) message] The s ystem which generated this result transmitted reference range : 10*3/?L. The reference range was not used to interpret this result as normal/abnormal . GRAN MAT (NEUT) % 56.0 % (test code = 770-8) IMM GRAN % (test code 0.10 % = 6111707550) LYMPH % (test code = 34.3 % 736-9) MONO % (test code = 8.0 % 5905-5) EOS % (test code = 1.2 % 713-8) BASO % (test code = 0.4 % 706-2) GRAN MAT x10^3(ANC) 3.84 10*3/uL 1.99-6.95 (test code = 1868834073) IMM GRAN x10^3 (test 0-0.06 code = 8016984591) LYMPH x10^3 (test code 2.35 10*3/uL 1.09-3.23 = 731-0) MONO x10^3 (test code 0.55 10*3/uL 0.36-1.02 = 742-7) EOS x10^3 (test code = 0.08 10*3/uL 0.06-0.53 711-2) BASO x10^3 (test code 0.03 10*3/uL 0.01-0.09 = 704-7) Lab Interpretation Abnormal (test code = 15268-3) [facility] WITH [id number] 05:03:23 Test Item Value Reference Range Interpretation Comments WBC (test code = See_Comment [Automated 7290-2) message] The sy stem which generated this result transmitted reference range : 4.20 - 10.70 10*3/?L. The reference range was not used to interpret this result as normal/abnormal . RBC (test code = See_Comment [Automated 989-8) message] The sy stem which generated this [...] RDW-SD (test code = 48.6 fL 38.5-51.6 72793-4) RDW-CV (test code = 13.7 % 12.1-15.4 788-0) PLT (test code = See_Comment [Automated 777-3) message] The sy stem which generated this result transmitted reference range : 150 - 328 10*3/ ?L. The reference r azam was not used to interpret this result as normal/abnormal . MPV (test code = 10.3 fL 9.8-13 05201-6) NRBC/100 WBC (test See_Comment [Automat ed code = 9000402116) message] The system which generated this result transmitted reference range : 0.0 - 10.0 /100 WBCs. The refer ence range was not u sed to interpret th is result as normal/abnormal . NRBC x10^3 (test code See_Comment [Auto mated = 5793187120) message] The s ystem which generated this result transmitted reference range : 10*3/?L. The reference range was not used to interpret this result as normal/abnormal . GRAN MAT (NEUT) % 56.0 % (test code = 770-8) IMM GRAN % (test code 0.10 % = 0747514102) LYMPH % (test code = 34.3 % 736-9) MONO % (test code = 8.0 % 5905-5) EOS % (test code = 1.2 % 713-8) BASO % (test code = 0.4 % 706-2) GRAN MAT x10^3(ANC) 3.84 10*3/uL 1.99-6.95 (test code = 7588112616) IMM GRAN x10^3 (test 0-0.06 code = 7248167821) LYMPH x10^3 (test code 2.35 10*3/uL 1.09-3.23 = 731-0) MONO x10^3 (test code 0.55 10*3/uL 0.36-1.02 = 742-7) EOS x10^3 (test code = 0.08 10*3/uL 0.06-0.53 711-2) BASO x10^3 (test code 0.03 10*3/uL 0.01-0.09 = 704-7) Lab Interpretation Abnormal (test code = 18438-2) [facility] [id number] 13:07:00 Test Item Value Reference Range Interpretation Comments UA GLUCOSE DIPSTIC POC NEGATIVE NEGATIVE (test code = GLUUP) UA BILIRUBIN DIPSTICK NEGATIVE NEGATIVE (test code = BILU) UA KETONE DIPSTICK POC 1+ NEGATIVE A (test code = KETUP) UA SPECIFIC GRAVITY (test 1.010 1.005-1.030 N code = SGU) UA BLOOD DIPSTIC POC NEGATIVE NEGATIVE Perform ed by (test code = BLUP) certified pickle water pump operator at [facility] UA PH DIPSTIC POC (test 5 5.0-7.0 N code = PHUP) UA PROTEIN DIPSTICK POC NEGATIVE NEGATIVE (test code = DPROUP) UA UROBILINIOGEN QUAL NORMAL 0.2-1.0 (test code = UROQL) UA NITRITE DIPSTICK POC NEGATIVE Negative (test code = NITUP) UA LEUKOCYTE ESTERASE W Negative NEGATIVE REFLEX (test code = LEUUR) - CT ABD PELVIS W/O [id number] [facility]:00[facility]00 [facility] A[facility] : 1950 Sex: M Name:KAY MAXWELL FSED : 1950 Age/S: 71 / M [address] [facility] Unit #: [id number] Loc:David Singh [address] Phys: Wilfredo Vallejo MD Acct: [id number] Dis Date: Status: REG ER PHONE #: Exam Date: 03/21/2021632 FAX #: Reason: low back pain EXAMS: CPT CODE: [id number] CT ABD PELVIS W/O [id number] PROCEDURE INFORMATION: Exam: CT Abdomen And Pelvis [...] appropriately thickwalled stomach. Nonobstructive bowel gas pattern. Pyfq-cb-qnydfhre diverticulosis greatest in the thick-walled sigmoid colon consistent with chronic changes of diverticulosis. Appendix: No evidence of appendicitis. Intraperitoneal space: Normal without free air or significant fluid collection. Vasculature: Normal duncan iber mildly to moderately atherosclerotic nonenhanced abdominal aorta. Lymph nodes: Numerous small nonspecific central mesenteric and retroperitoneal lymph nodes without lymph node enlargement or mass. Urinary bladder: Mildly dilated urinary bladder suggesting urinary retention or bladder outlet obstruction. Reproductive: Mildly enlarged prostate and seminal vesicles should be correlated clinically.Bones/joints: Mild to moderate lumbar spondylosis and facet joint PAGE 1 Signed Report (CONTINUED) Name: KAY MAXWELL FSED : 1950 Age/S: 71 / M [address] [facility] #: [id number] Loc: David Singh [address] Phys: Wilfredo Vallejo MD Acct: [id number] Dis Date: Status: REG ER PHONE #: Exam Date: 03/21/2021 0633 FAX #: Reason: low back pain EXAMS: CPT CODE: [id number] CT ABD PELVIS W/O CONT 60073 (Continued) arthrosis greatest in the mid and lower lumbar spine. No acute fracture or dislocation. Soft tissues: No significant abnormality. IMPRESSION: 1. Lfgd-ib-hxldndcn diverticulosis greatest in the thick-walled sigmoid colon [...] nodes without lymph node enlargement or mass. [id number] Reported and signed by: Hipolito Patten M.D. CC: Wilfredo Vallejo MD Technologist:Romario Bhakta RT(R)(CT) CTDI: DLP: Trnscb Date/Time: 03/21/2021 (06) t.[email or web address].[email or web address] Orig Print D/T: S: 03/21/2021 (0659) PAGE 2 Signed Report Notes Date/Time Note Provider Source 2021-03-21 03:[facility] EMER[facility]Y PROVIDER REPORT REPORT#:[id number] REPORT STATUS: Signed DATE:03/21/21 TIME: 030 PATIENT: KAY MAXWELL UNIT #: [id number] ROOM/BED: AGE: 71 SEX: M PCP PHYS: Mil Powell MD SERVICE AUTHOR: Wilfredo Vallejo MD * ALL edits or amendments must be made on the [employer] document * HPI-Back Pain 40 and Over [...] was hurting him to lay down. The pipeline technician tried to get him on his [...] 03/21 0335 O2 Delivery Room air 03/21 033 Temp 37.2 03/21 033 Pulse 61 03/21 0335 Resp 18 03/21 0335 Last Documented: Result Date Time Pulse Ox 97 03/21 0700 B/P 165/65 03/21 0700 B/P Mean 98 03/21 0700 O2 Delivery Room air 03/21 07 Temp 36.7 03/21 0700 Pulse 65 03/21 0700 Resp 20 03/21 0700 Review of Vital Signs Reviewed Basic Physical [...] Diagnostics Lab Results Interpretation Results Laboratory Tests: 03/218 Urines POC Urine pH (5.0 - 7.0) 5 Ur Specific Coin (1.005 - 1.030) 1.010 POC Urine Protein (NEGATIVE) NEGATIVE POC Ur Glucose (UA) (NEGATIVE) NEGATIVE POC Urine Ketones (NEGATIVE) 1+ H POC Urine Blood (NEGATIVE) NEGATIVE POC Urine Nitrite (Negative) NEGATIVE Urine Bilirubin (NEGATIVE) NEGATIVE POC Urine Urobilinogen (0.2 - 1.0) NORMAL POC U Leukocyte Esteras (NEGATIVE) Negative Recent Impressions: CAT SCAN - CT ABD PELVIS W/O CONT 03/21 633 Report Impression - Status: SIGNED Entered: 03/21/2021 0659 IMPRESSION: 1. Njzn-tc-xyzpnula diverticulosis greatest in t he thick-walled sigmoid [...] Statement Laboratory studies reviewed and considered in th e medical decision-making. Imaging Statement Radiographic studies [...] 5 MG X1ED STA 03/21 0534 DC 10 IM 03/21 0535 0539 Acetaminophen 1,000 MG X1ED STA 03/21 0304 DC PO 03/21 0305 Ketorolac 30 MG X1ED STA 03/21 0304 DC 10 Tromethamine IM 03/21 0305 0312 Local Anesthetics (Parenteral) Sig/Reinaldo Start time Last Medication Dose Route Stop Time Status Admin Lidocaine 1 PATCH X1ED STA 03/21 042 DC 03/21 TOPICAL 03/21 424 0429 Patient Discharge Departure Vital Signs/Condition Vital Signs First Documented: Result Date Time Pulse Ox 97 03/21 0335 B/P 211/86 03/21 0335 B/P Mean 127 03/21 335 O2 Delivery Room air 03/21 033 Temp 37.2 03/21 033 Pulse 61 03/21 033 Resp 18 03/21 033 Last Documented: Result Date Time Pulse Ox 97 03/21 0700 B/P 165/65 03/21 0700 B/P Mean 98 03/21 0700 O2 Delivery Room air 03/21 07 Temp 36.7 03/21 07 Pulse 65 03/21 0700 Resp 20 03/21 [...] PRN ACUTE PAIN #15 TABS at [facility] #:[id number] END OF REPORT"
--- NOTE | 2022-11-30 20:08 | ER ---
Nurse's Notes [facility] Name: Ford Cardenas Age: 72 yrs Sex: Male : 1950 Arrival Date: 11/30/2022 Time: 19:13 Bed Treatment Private MD: Diagnosis: Encounter for removal of sutures-scalp rolanda Presentation: 11/30 19:37 Chief complaint: Patient states: Here for rolanda removal. Coronavirus screen: Vaccine nj1 status: Patient reports receiving the 2nd dose of the covid vaccine. Ebola Screen: Patient denies travel to an Ebola-affected area in the 21 days before illness onset. Initial Sepsis Screen: Does the patient meet any 2 criteria? No. Patient's initial sepsis screen is negative. Does the patient have a suspected source of infection? No. Patient's initial sepsis screen is negative. Risk Assessment: Do you want to hurt yourself or someone else? Patient reports no desire to harm self or others. Onset of symptoms. 19:37 Method Of Arrival: Ambulatory [facility] 19:37 Acuity: KAYLA 5 nj1 Historical: - Allergies: 19:39 Iodine; nj1 19:39 PENICILLINS; nj1 - PMHx: 19:39 Cerebrovascular accident; diabetes mellitus; Hypertensive disorder; nj1 - Immunization history:: Client reports receiving the 2nd dose of the Covid vaccine. - Social history:: Smoking status: Patient reports the use of cigarette tobacco products, smokes one-half pack cigarettes per day. Screenin:18 [facility] ED Fall Risk Assessment (Adult) History of falling in the last 3 months, cm10 including since admission No falls in past 3 months (0 pts) Confusion or Disorientation No (0 pts) Intoxicated or Sedated No (0 pts) Impaired Gait No (0 pts) Mobility Assist Device Used No (0 pt) Altered Elimination No (0 pt) Score/Fall Risk Level 0 - 2 = Low Risk Oriented to surroundings, Maintained a safe environment. Abuse screen: Denies threats or abuse. Denies injuries from another. Nutritional screening: No deficits noted. Tuberculosis screening: No symptoms or risk factors identified. Assessment: 20:17 General: Appears in no apparent distress. comfortable, Behavior is calm, cooperative. cm10 Pain: Denies pain. Neuro: No deficits noted. Level of Consciousness is awake, alert, Oriented to person, place, time, situation. Respiratory: No deficits noted. Airway is patent Respiratory effort is even, unlabored, Respiratory pattern is regular, symmetrical. Vital Signs: 19:37 BP 139 / 76; Pulse 57; Resp 18; Temp 98.5; Pulse Ox 100% ; Weight 81.65 kg; Height 6 or1 ft. 1 in. ; 19:37 Body Mass Index 23.75 (81.65 kg, 185.42 cm) [facility] ED Course: 19:15 Patient arrived in ED. ja2 19:28 Basilio Kaufman PA is PHCP. cp 19:28 Deuce Hitchcock MD is Attending Physician. cp 19:39 Triage completed. nj1 19:40 Arm band placed on right wrist. nj1 19:48 Mare Tong, RN is Primary Nurse. cm10 20:18 Patient has correct armband on for positive identification. cm10 20:18 No provider procedures requiring assistance completed. Patient did not have IV access cm10 during this emergency room visit. Administered Medications: No medications were administered Medication: 20:18 VIS not applicable for this client. cm10 Outcome: 20:07 Discharge ordered by MD. cp 20:18 Discharged to home ambulatory. cm10 20:18 Condition: good 20:18 Discharge instructions given to patient, Instructed on discharge instructions, follow up and referral plans. Demonstrated understanding of instructions, follow-up care. 20:19 Patient left the ED. cm10 Signatures: Basilio Kaufman PA PA cp Alexander, Jessica [facility] Alea Walker RN RN nj1 Mare Tong, ARABELLA RN cm10
--- NOTE | 2022-11-30 20:08 | EDPHYS ---
Physician Documentation [facility] Name: Ford Cardenas Age: 72 yrs Sex: Male : 1950 Arrival Date: 11/30/2022 Time: 19:13 Bed Treatment Private MD: ED Physician Deuce Hitchcock HPI: 11/30 19:50 This 72 yrs old Male presents to ER via Ambulatory with complaints of Staple Removal. cp 19:50 The patient has rolanda on the scalp. Sutures/rolanda progress: The patient has no cp c/o's. The wound is well-healing with no redness, swelling, discharge, or dehiscence reported. 19:50 Previous treatment: The patient was initially treated on November 19, 2022, the care was cp rendered at [facility], Treatment type: The patient's original treatment included rolanda. Historical: - Allergies: 19:39 Iodine; nj1 19:39 PENICILLINS; nj1 - PMHx: 19:39 Cerebrovascular accident; diabetes mellitus; Hypertensive disorder; nj1 - Immunization history:: Client reports receiving the 2nd dose of the Covid vaccine. - Social history:: Smoking status: Patient reports the use of cigarette tobacco products, smokes one-half pack cigarettes per day. ROS: 19:55 Skin: Positive for history of scalp laceration. cp 19:55 Constitutional: Negative for body aches, chills, fever, poor PO intake. cp 19:55 Neuro: Negative for altered mental status, headache, weakness. 19:55 All other systems are negative. Exam: 19:58 Constitutional: The patient appears in no acute distress, alert, awake, comfortable, cp non-toxic, well developed, well nourished. 19:58 Cardiovascular: Rate: bradycardic. 19:58 Skin: Wound recheck: Staple laceration closure: the wound is healing well, the edges are well approximated, no evidence of dehiscence, no drainage, no erythema, no swelling, [address], repaired scalp laceration. 19:58 Neuro: Orientation: to person, place \T\ time. Mentation: is normal, Motor: moves all fours, strength is normal, Gait: is steady. Vital Signs: 19:37 BP 139 / 76; Pulse 57; Resp 18; Temp 98.5; Pulse Ox 100% ; Weight 81.65 kg; Height 6 nj1 ft. 1 in. ; 19:37 Body Mass Index 23.75 (81.65 kg, 185.42 cm) nj1 Procedures: 20:07 Suture/Staple removal: Removed 3 rolanda, from scalp, site appears well healed, Patient cp tolerated well. MDM: 19:44 Patient medically screened. cp 20:07 Data reviewed: vital signs, nurses notes, and as a result, I will discharge patient. cp 20:07 Counseling: I had a detailed discussion with the patient and/or guardian regarding: the cp historical points, exam findings, and any diagnostic results supporting the discharge/admit diagnosis, to return to the emergency department if symptoms worsen or persist or if there are any questions or concerns that arise at home. Response to treatment: the patient's symptoms have markedly improved after treatment. Administered Medications: No medications were administered Disposition Summary: 11/30/22 20:07 Discharge Ordered Location: Home cp Problem: new cp Symptoms: have improved cp Condition: Stable cp Diagnosis - Encounter for removal of sutures - scalp rolanda cp Followup: cp - With: Private Physician - When: 1 - 2 days - Reason: Worsening of condition Discharge Instructions: - Discharge Summary Sheet cp - Sutures, [place], or Adhesive Wound Closure cp - Suture Removal, Care After cp Forms: - Medication Reconciliation Form cp - Thank You Letter cp - Antibiotic Education cp - Prescription Opioid Use cp - [email or web address] cp Signatures: Basilio Kaufman PA PA cp Alea Walker RN RN nj1 Corrections: (The following items were deleted from the chart) 12/01 16:28 16:26 Skin: Wound recheck: Staple laceration closure: the wound is healing well, the cp edges are well approximated, no evidence of dehiscence, no drainage, no erythema, no swelling, [address], repaired scalp laceration, cp 16:28 16:26 Neuro: Orientation: to person, place \T\ time. Mentation: is normal, Motor: moves cp all fours, strength is normal, Gait: is steady, cp 16:28 16:26 Constitutional: The patient appears in no acute distress, alert, awake, cp comfortable, non-toxic, well developed, well nourished, cp 16:28 16:26 Cardiovascular: Rate: bradycardic, cp cp
[2022-11-30 20:29] VITALS: BP 139/76; TEMP 98.5; O2SAT 100
== END 2022-11-30 20:19 | disposition home or self-care (01) ==
LOC: ER 19:13
DX: Z48.02 Encounter for removal of sutures (principal)
CPT/HCPCS: 99282